=== PATIENT | male | born 1945 | race Caucasian/White ===

== ENCOUNTER 2019-10-06 10:26 | Outpatient (CLI) | payer MEDICARE, SELFPAY ==
[2019-10-06 11:00] LABS: Blood Urea Nitrogen 13 mg/dL (9-20); Calcium 9.4 mg/dL (8.4-10.2); Carbon Dioxide 34 mmol/L (22-30); Chloride 98 mmol/L (98-107); Estimated Glomerular Filt Rate > 60; Glucose 91 mg/dL (75-110); Potassium 3.9 mmol/L (3.4-5.0); Sodium 141 mmol/L (137-145)
== END 2019-10-06 10:27 | disposition home or self-care (01) ==
LOC: ANHSURGERY 10:30
PROVIDERS: Anesthesiology; PCP Family Medicine; Visit Provider Orthopaedic Surgery
DX: E11.9 Type 2 diabetes mellitus without complications (principal)
CPT/HCPCS: 36415; 80048

== ENCOUNTER 2019-10-13 02:40 | Day surgery (SDC) | payer MEDICARE, SELFPAY ==
[2019-10-04 13:43] VITALS: BMI 29.9
[2019-10-13] VITALS (7 sets, daily range): BP systolic 116–152; BP diastolic 73–91; PULSE 70–85; RESP 12–20; TEMP 36.7–36.9; O2SAT 18–98; BMI 31.0
[2019-10-13] MEDS: LACTATED RINGERS 1,000 ML 30 ML IV CONT ×2 (08:15→09:35)
--- NOTE | 2019-10-13 08:16 | WPDHPUPDATE1 ---
History and Physical Update Update Date/Time: 10/13/19 08:16 History and Physical has been reviewed, including an updated exam of the patient. There are NO changes in the patient's condition. Risks, benefits, and alternatives have been discussed and questions answered. Patient agrees to proceed with procedure.
[2019-10-13 08:23] LABS: Glucose Point of Care 102 (65-105)
--- NOTE | 2019-10-13 08:35 | WPDANESEPPF ---
Anes - Initial Pre Proc Eval Procedure: Operation Date: 10/13/19 09:00 Proposed Procedures p Right Arthroscopic Partial Medial and Lateral Meniscectomy - Rolf Alfonso MD Date/Time: 10/13/19 08:35 Surgeon: Rolf Alfonso MD Pre Op Diagnosis: Right Medial and Lateral Meniscus Tear Patient Data Age: 74 Gender: M Height: 5 ft 8.5 in Weight: 93.9 kg Last Vital Signs Temp 36.9 C 10/13/19 07:30 Pulse 85 10/13/19 07:30 Resp 18 10/13/19 07:30 BP 152/91 H 10/13/19 07:30 Pulse Ox 97 10/13/19 07:30 Allergies Allergy/AdvReac Type Severity Reaction Status Date / Time Shrimp Allergy Mild Hives / Uncoded 10/04/19 13:40 Red Face Home Medications Medication Instructions Recorded Confirmed Type amlodipine 5 mg tablet 5 mg PO DAILY #90 tablet 07/07/19 10/04/19 Rx hydrochlorothiazide 25 mg tablet 25 mg PO DAILY #90 tablet 07/07/19 10/04/19 Rx lisinopril 40 mg tablet 40 mg PO DAILY #90 tablet 07/07/19 10/04/19 Rx metformin 500 mg tablet,extended 500 mg PO DAILY #90 tablet 07/07/19 10/04/19 Rx release 24hr potassium chloride 20 mEq 20 meq PO BID #180 tablet 07/07/19 10/04/19 Rx tablet,extended release rivaroxaban 20 mg tablet 20 mg PO DAILY #90 tablet 07/07/19 10/04/19 Rx metoprolol tartrate 50 mg tablet 50 mg PO BID #180 tablet 08/30/19 10/04/19 Rx aspirin 81 mg PO DAILY 10/04/19 10/04/19 History pazjaihaslag-wotf-qlmdq acid 1 tablet PO DAILY 10/04/19 10/04/19 History [Centrum Complete] Laboratory Tests 10/13/19 08:19 POC Capillary Glucose 102 mg/dl mg/dl (65-105) Patient hx anesthesia problems: none Family hx anesthesia problems: none PMFSH Past Medical History Medical History Bilateral primary osteoarthritis of knee Essential (primary) hypertension Family history of unspecified malignant neoplasm Hypokalemia Male erectile disorder Osteoarthritis of right knee Prediabetes Tear of medial meniscus of right knee Unspecified atrial fibrillation Surgical History Surgical History History of laparoscopic appendectomy Family History Family History Mother Family history of cardiovascular disease Father Family history of lung cancer Other Family history of elevated blood lipids Family history of pancreatic cancer Social History Social History Smoking status: Never smoker Alcohol intake: current Gender identity (if verbalized by the patient): Male Anes - Eval Final PreProcedure Day of Procedure 10/13/19 08:35 Patient weight: overweight Heart: irregular rhythm Lungs: clear to auscultation Airway: Mallampati scale class II Neurological: alert and oriented Last oral intake: >/= 8 hours ASA classification: III Emergent: no Anesthetic plan: proceed Anesthesia type and monitoring: general LMA and standard monitoring Informed Consent: The patient's anesthetic plan and its attendant risks and benefits were discussed with the patient/family/POA. Questions were solicited and answers provided to the satisfaction of the patient/family/POA.
[2019-10-13] MEDS: ceFAZolin 2 GM/D5W 50 ML 2 GM/50 ML BAG IVPB (08:37)
[2019-10-13] MEDS: BUPIVACAINE/EPINEPHRINE 0.5% 30 ML VIAL INFILTRATE (08:54)
--- NOTE | 2019-10-13 09:32 | PM.PROC ---
Procedure Note - Detailed Date of procedure: 10/13/19 Pre-op diagnosis: Right Medial and Lateral Meniscus Tear Medial and lateral meniscus tear, left knee Post-op diagnosis: same Procedure performed: Arthroscopic partial medial and lateral meniscectomy, right knee. Description of procedure: Complex degenerative medial tear. Moderate synovitis. Chondromalacia: patella grade I, trochlea grade 3 central, medial femur grade 3 with chondroplasty performed, lateral femur grade I and grade 2/3 softening and deep fibrillation lateral central tibia, medial tibia normal. Anesthesia: GETA Surgeon: Rolf Alfonso MD Estimated blood loss (mL): 5 Tourniquet time (min): 30 Complications: None Condition: stable Disposition: PACU Findings: Brief History: The patient complained of knee pain, swelling and mechanical symptoms despite conservative treatment. MRI confirmed the presence of a meniscus tear. Procedure Details: The patient was identified and the surgical site confirmed and signed in the preoperative holding area. Antibiotics were started per protocol. He was brought to the operative room and transferred to the OR table. A general anesthetic was administered. Supine position with the operative lower extremity position in the leg lu after placement of a well padded tourniquet. The leg support was lowered and the contralateral limb was supported with a soft bolster. The knee was prepped and draped in the usual sterile fashion. A time-out was performed. The portal sites were marked and infiltrated with 0.5% Marcaine 20 mL. The limb was exsanguinated and the tourniquet inflated to 300 mL Hg. Standard inferolateral and inferomedial portals were established. Inflow was obtained with the saline pump. The camera was introduced. Diagnostic inspection of the joint was accomplished. The medial and lateral menisci were debrided with the arthroscopic shaver, RF probe, and punches until stable. The arthroscopic instruments were removed. The tourniquet released and wounds closed with subcutaneous 3-0 Monocryl absorbable suture. Steri strips and a sterile dressing were applied. A light elastic wrap was placed. The patient was extubated and brought to the recovery room in stable condition.
[2019-10-13 13:15] LABS: Glucose Point of Care 97 (65-105)
== END 2019-10-13 11:25 | disposition home or self-care (01) ==
PROVIDERS: PCP Family Medicine; Visit Provider Orthopaedic Surgery
PROC: (CPT 29870; principal; 2019-10-13 09:00)
DX: M23.331 Other meniscus derangements, other medial meniscus, right knee (principal); M23.361 Other meniscus derangements, other lateral meniscus, right knee; M94.261 Chondromalacia, right knee; M65.861 Other synovitis and tenosynovitis, right lower leg; I10 Essential (primary) hypertension; I48.91 Unspecified atrial fibrillation; R73.03 Prediabetes; Z79.01 Long term (current) use of anticoagulants; Z79.82 Long term (current) use of aspirin; Z79.84 Long term (current) use of oral hypoglycemic drugs
CPT/HCPCS: 29880; J0131; J0690; J1100; J2370; J2405; J2704; J3010; J7120

== ENCOUNTER 2021-07-02 01:14 | Day surgery (SDC) | payer MEDICARE, SELFPAY ==
[2021-06-19 14:48] VITALS: BMI 31.1
--- NOTE | 2021-07-01 13:20 | PM.HPGS ---
History of Present Illness History of Present Illness Consent: Risks, benefits, and alternatives have been discussed and questions answered. Patient agrees to proceed with procedure. Chief complaint: hx of colon polyps Narrative: Reggie Angeles is a 75 year old male here for colon cancer screening. He has a history of having had polyps sometime in the past Review of Systems Review of Systems: All systems reviewed & are unremarkable except as noted in HPI and below PMFSH Past Medical History Medical History Bilateral primary osteoarthritis of knee Essential (primary) hypertension Family history of unspecified malignant neoplasm Hypokalemia Male erectile disorder MCL sprain of right knee Obesity (BMI 30.0-34.9) Osteoarthritis of right knee Prediabetes Sjogrens syndrome Tear of medial meniscus of right knee Unspecified atrial fibrillation Surgical History Surgical History History of laparoscopic appendectomy History of meniscectomy of right knee (~10/13/19) Partial Lateral & Medial Status post medial meniscectomy of knee Family History Family History Mother Family history of cardiovascular disease Father Family history of lung cancer Other Family history of elevated blood lipids Family history of pancreatic cancer Social History Social History Smoking status: Never smoker Alcohol intake: current Drinks per week: 12 Alcohol use details: WEEK Substance use: never Substance use type: does not use Living arrangements: with family Gender identity (if verbalized by the patient): Male Spiritual care concerns: No Meds Home Medications and Allergies Home Medications Medication Instructions Recorded Confirmed Type Centrum Complete 1 tablet PO DAILY 10/04/19 07/02/21 History aspirin 81 mg PO DAILY 10/04/19 07/02/21 History amlodipine 10 mg tablet 10 mg PO DAILY #90 tablet 10/24/20 07/02/21 Rx Xarelto 20 mg PO DAILY 06/19/21 07/02/21 History hydrochlorothiazide 25 mg PO DAILY 06/19/21 07/02/21 History lisinopril 40 mg PO DAILY 06/19/21 07/02/21 History metformin 500 mg PO DAILY 06/19/21 07/02/21 History metoprolol tartrate 50 mg PO BID 06/19/21 07/02/21 History omega 6-fsw-qcp-fish oil [Fish Oil] 1 cap PO BID 06/19/21 07/02/21 History potassium chloride 20 meq PO BID 06/19/21 07/02/21 History Allergies Allergy/AdvReac Type Severity Reaction Status Date / Time No Known Allergies Allergy Verified 07/02/21 08:14 Exam Resp: Auscultation: clear to auscultation bilaterally Cardio: Rate: regular rate Rhythm: regular rhythm GI: GI Palp: Yes Soft to palpation and No Tenderness to palpation present (GI) Assessment and Plan Assessment and plan (1) Colon cancer screening: Code(s): Z12.11 - Encounter for screening for malignant neoplasm of colon Status: Acute Assessment and Plan: Colonoscopy with possible biopsy or polypectomy or cautery or injection of substances.
[2021-07-02 08:16] VITALS: BP 142/83; PULSE 63; RESP 17; TEMP 36.9; O2SAT 97; BMI 31.5
[2021-07-02] MEDS: LACTATED RINGERS 1,000 ML 150 ML IV CONT (08:19)
[2021-07-02 08:32] LABS: Glucose Point of Care 118 mg/dl (65-105)
--- NOTE | 2021-07-02 08:40 | WPDANESEPPF ---
Anes - Initial Pre Proc Eval Procedure: Operation Date: 07/02/21 09:30 Proposed Procedures p Screening Colonoscopy - Faustino Russell MD Date/Time: 07/02/21 08:40 Surgeon: Faustino Russell MD Pre Op Diagnosis: hx of colon polyps Patient Data Age: 75 Gender: M Height: 1.73 m Weight: 94 kg Last Vital Signs Temp 36.9 C 07/02/21 08:16 Pulse 63 07/02/21 08:16 Resp 17 07/02/21 08:16 BP 142/83 H 07/02/21 08:16 Pulse Ox 97 07/02/21 08:16 Allergies Allergy/AdvReac Type Severity Reaction Status Date / Time No Known Allergies Allergy Verified 07/02/21 08:14 Home Medications Medication Instructions Recorded Confirmed Type Centrum Complete 1 tablet PO DAILY 10/04/19 07/02/21 History aspirin 81 mg PO DAILY 10/04/19 07/02/21 History amlodipine 10 mg tablet 10 mg PO DAILY #90 tablet 10/24/20 07/02/21 Rx Xarelto 20 mg PO DAILY 06/19/21 07/02/21 History hydrochlorothiazide 25 mg PO DAILY 06/19/21 07/02/21 History lisinopril 40 mg PO DAILY 06/19/21 07/02/21 History metformin 500 mg PO DAILY 06/19/21 07/02/21 History metoprolol tartrate 50 mg PO BID 06/19/21 07/02/21 History omega 5-mly-ykd-fish oil [Fish Oil] 1 cap PO BID 06/19/21 07/02/21 History potassium chloride 20 meq PO BID 06/19/21 07/02/21 History Laboratory Tests 07/02/21 08:29 POC Capillary Glucose 118 mg/dl H mg/dl (65-105) Patient hx anesthesia problems: none Family hx anesthesia problems: none Results Review: All pre-operative results and documents have been reviewed as part of the pre-operative evaluation. [facility] Past Medical History Medical History (Updated 07/01/21 @ 13:21 by Faustino Russell MD) Bilateral primary osteoarthritis of knee Essential (primary) hypertension Family history of unspecified malignant neoplasm Hypokalemia Male erectile disorder MCL sprain of right knee Obesity (BMI 30.0-34.9) Osteoarthritis of right knee Prediabetes Sjogrens syndrome Tear of medial meniscus of right knee Unspecified atrial fibrillation Surgical History Surgical History (Updated 10/24/20 @ 09:40 by Asim Beltran MD) History of laparoscopic appendectomy History of meniscectomy of right knee (~10/13/19) Partial Lateral & Medial Status post medial meniscectomy of knee Family History Family History Mother Family history of cardiovascular disease Father Family history of lung cancer Other Family history of elevated blood lipids Family history of pancreatic cancer Social History Social History Smoking status: Never smoker Alcohol intake: current Drinks per week: 12 Alcohol use details: WEEK Substance use: never Substance use type: does not use Living arrangements: with family Gender identity (if verbalized by the patient): Male Spiritual care concerns: No Anes - Eval Final PreProcedure Day of Procedure 07/02/21 08:40 Patient weight: obese Heart: regular rate and rhythm Lungs: clear to auscultation and normal air movement Airway: Mallampati scale class II Neurological: alert and oriented Last oral intake: >/= 8 hours ASA classification: III Emergent: no Anesthetic plan: proceed Anesthesia type and monitoring: general GIVS Results Review: All pre-operative results and documents have been reviewed as part of the pre-operative evaluation. Informed Consent: The patient's anesthetic plan and its attendant risks and benefits were discussed with the patient/family/POA. Questions were solicited and answers provided to the satisfaction of the patient/family/POA.
[2021-07-02 09:42] VITALS: BP 83/44; PULSE 66; RESP 26; O2SAT 99
[2021-07-02 09:52] VITALS: BP 96/52; PULSE 73; RESP 23; O2SAT 100
== END 2021-07-02 10:11 | disposition home or self-care (01) ==
PROVIDERS: PCP Family Medicine; Visit Provider Internal Medicine Gastroenterology
PROC: 0DJD8ZZ Inspection of Lower Intestinal Tract, Via Natural or Artificial Opening Endoscopic (ICD-10-PCS; CPT 45378; principal; 2021-07-02 09:30)
DX: Z12.11 Encounter for screening for malignant neoplasm of colon (principal); K57.30 Diverticulosis of large intestine without perforation or abscess without bleeding; Z86.010 Personal history of colon polyps; I10 Essential (primary) hypertension; M35.00 Sjogren syndrome, unspecified; R73.03 Prediabetes; I48.91 Unspecified atrial fibrillation; Z79.01 Long term (current) use of anticoagulants; Z79.84 Long term (current) use of oral hypoglycemic drugs; Z79.82 Long term (current) use of aspirin; E66.9 Obesity, unspecified; Z68.31 Body mass index [BMI] 31.0-31.9, adult
CPT/HCPCS: G0105; 82948; J2704; J7120

== ENCOUNTER 2021-10-21 09:53 | Outpatient (RCR) | payer MEDICARE, SELFPAY ==
--- NOTE | 2021-10-21 11:36 | PTOPEVAL ---
Thank you for referring Reggie Angeles to [facility].? The patient is scheduled to be seen for therapy? ____x/week for ___ weeks. Please review, sign, date and return this plan of care DYLON. I agree with and certify that the following plan of care is medically necessary. Referring Physician Date Admitting Provider: Attending Provider: Rolf Alfonso MD Referring Provider: *PT Outpatient Evaluation Start: 10/21/21 10:09 Freq: Status: Active Protocol: Document 10/21/21 10:10 [facility] (Rec: 10/21/21 11:01 [facility] [id number]) Therapy Assessment Status Assessment Status Assessment Status Evaluation Outpatient Past Medical History Neurological History Hx Neurological Disorders No Significant History Cardiovascular History Hx Atrial Fibrillation Yes Hx Cardiac Surgery Yes: ABLATION AND CARDIOVERSIONS Hx Hypertension Yes: TAKES MEDS Hx Other Cardiac Disorders Yes: SEES DR. JOHNSON AT [facility]- Respiratory History Hx Bronchitis Yes: 2018 Gastrointestinal History Hx Appendectomy Yes Hx Polyps Yes Hx Ulcer Yes: PERFORATED GASTRIC ULCER Genitourinary History Hx Other Genitourinary Disorders Yes: NOCTURIA Musculoskeletal History Hx Arthritis Yes Hx Orthopedic Surgery Yes: RT KNEE MEDIAL AND LAT. 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 Reproductive History Hx Reproductive Disorders No Significant History Psychosocial History Hx Psychiatric Disorders No Significant History Pain History History of Any Previous or Ongoing No Significant History Instance of Pain Anesthesia History Hx Anesthesia Reactions No Significant History Other History Hx Cancer Yes: SKIN ONLY Evaluation Information Problem Diagnosis bilateral knee oa Onset 10/20/21 Additional Evaluation Detail LEFS = 43% functionally declined Subjective Information patient reports he has been Query Text:As Reported By Patient/ having pain in the bilateral Family knees for years. he reports he is very active individual. he reports he had an injection
--- NOTE | 2021-11-27 10:49 | PTOPEVAL ---
Thank you for referring Reggie Angeles to [facility].? The patient is scheduled to be seen for therapy? ____x/week for ___ weeks. Please review, sign, date and return this plan of care DYLON. I agree with and certify that the following plan of care is medically necessary. Referring Physician Date Admitting Provider: Attending Provider: Rolf Alfonso MD Referring Provider: *PT Outpatient Evaluation Start: 10/21/21 10:09 Freq: Status: Active Protocol: Document 11/27/21 09:23 [facility] (Rec: 11/27/21 10:48 [facility] [id number]) Outpatient Past Medical History Neurological History Hx Neurological Disorders No Significant History Cardiovascular History Hx Atrial Fibrillation Yes Hx Cardiac Surgery Yes: ABLATION AND CARDIOVERSIONS Hx Hypertension Yes: TAKES MEDS Hx Other Cardiac Disorders Yes: SEES DR. JOHNSON AT [facility]- Respiratory History Hx Bronchitis Yes: 2018 Gastrointestinal History Hx Appendectomy Yes Hx Polyps Yes Hx Ulcer Yes: PERFORATED GASTRIC ULCER Genitourinary History Hx Other Genitourinary Disorders Yes: NOCTURIA Musculoskeletal History Hx Arthritis Yes Hx Orthopedic Surgery Yes: RT KNEE MEDIAL AND LAT. 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 he reports Family he continues to have increased pain with increased time spent doing activities. he reports staris and getting up and down fr
== END 2021-11-27 17:00 | disposition home or self-care (01) ==
LOC: CHSPT 09:53
PROVIDERS: Visit Provider Orthopaedic Surgery
DX: M17.0 Bilateral primary osteoarthritis of knee (principal)
CPT/HCPCS: 97110; 97161; 97530

== ENCOUNTER 2022-01-20 11:55 | Outpatient (RCR) | payer MEDICARE, SELFPAY ==
--- NOTE | 2022-01-20 12:50 | PTOPEVAL ---
Thank you for referring Reggie Angeles to [facility].? The patient is scheduled to be seen for therapy? ____x/week for ___ weeks. Please review, sign, date and return this plan of care DYLON. I agree with and certify that the following plan of care is medically necessary. Referring Physician Date Admitting Provider: Attending Provider: Rolf Alfonso MD Referring Provider: *PT Outpatient Evaluation Start: 01/20/22 11:42 Freq: Status: Active Protocol: Document 01/20/22 12:05 [facility] (Rec: 01/20/22 12:50 [facility] [id number]) Therapy Assessment Status Assessment Status Assessment Status Evaluation Outpatient Past Medical History Neurological History Hx Neurological Disorders No Significant History Cardiovascular History Hx Atrial Fibrillation Yes Hx Cardiac Surgery Yes: ABLATION AND CARDIOVERSIONS Hx Hypertension Yes: TAKES MEDS Hx Other Cardiac Disorders Yes: SEES DR. JOHNSON AT [facility]- Respiratory History Hx Bronchitis Yes: 2018 Gastrointestinal History Hx Appendectomy Yes Hx Polyps Yes Hx Ulcer Yes: PERFORATED GASTRIC ULCER Genitourinary History Hx Other Genitourinary Disorders Yes: NOCTURIA Musculoskeletal History Hx Arthritis Yes Hx Orthopedic Surgery Yes: RT KNEE MEDIAL AND LAT. 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 he reports he was able to mow grass this morning, but fluctuates
--- NOTE | 2022-02-03 15:07 | PTOPEVAL ---
Thank you for referring Reggie Angeles to [facility].? The patient is scheduled to be seen for therapy? ____x/week for ___ weeks. Please review, sign, date and return this plan of care DYLON. I agree with and certify that the following plan of care is medically necessary. Referring Physician Date Admitting Provider: Attending Provider: Rolf Alfonso MD Referring Provider: *PT Outpatient Evaluation Start: 01/20/22 11:42 Freq: Status: Active Protocol: Document 02/03/22 14:00 [facility] (Rec: 02/03/22 15:06 [facility] [id number]) Therapy Assessment Status Assessment Status Assessment Status Re-evaluation Outpatient Past Medical History Neurological History Hx Neurological Disorders No Significant History Cardiovascular History Hx Atrial Fibrillation Yes Hx Cardiac Surgery Yes: ABLATION AND CARDIOVERSIONS Hx Hypertension Yes: TAKES MEDS Hx Other Cardiac Disorders Yes: SEES DR. JOHNSON AT [facility]- Respiratory History Hx Bronchitis Yes: 2018 Gastrointestinal History Hx Appendectomy Yes Hx Polyps Yes Hx Ulcer Yes: PERFORATED GASTRIC ULCER Genitourinary History Hx Other Genitourinary Disorders Yes: NOCTURIA Musculoskeletal History Hx Arthritis Yes Hx Orthopedic Surgery Yes: RT KNEE MEDIAL AND LAT. 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 Reproductive History Hx Reproductive Disorders No Significant History Psychosocial History Hx Psychiatric Disorders No Significant History Pain History History of Any Previous or Ongoing No Significant History Instance of Pain Anesthesia History Hx Anesthesia Reactions No Significant History Other History Hx Cancer Yes: SKIN ONLY Evaluation Information Problem Diagnosis B/l Knee OA, lumbar spondylosis Onset 01/14/22 Subjective Information patient rpeorts he is feeling Query Text:As Reported By Patient/ better as of late, but a week Family or 2 ago he was unable to walk due to his lower back pain. he reports the pain was in the far lower back on the R side
--- NOTE | 2022-02-26 13:52 | PTOPEVAL ---
Thank you for referring Reggie Angeles to [facility].? The patient is scheduled to be seen for therapy? ____x/week for ___ weeks. Please review, sign, date and return this plan of care DYLON. I agree with and certify that the following plan of care is medically necessary. Referring Physician Date Admitting Provider: Attending Provider: Rolf Alfonso MD Referring Provider: *PT Outpatient Evaluation Start: 01/20/22 11:42 Freq: Status: Active Protocol: Document 02/26/22 13:41 Jennifer (Rec: 02/26/22 13:51 TRI [email or web address]) Therapy Assessment Status Assessment Status Assessment Status Discharge Outpatient Past Medical History Neurological History Hx Neurological Disorders No Significant History Cardiovascular History Hx Atrial Fibrillation Yes Hx Cardiac Surgery Yes: ABLATION AND CARDIOVERSIONS Hx Hypertension Yes: TAKES MEDS Hx Other Cardiac Disorders Yes: SEES DR. JOHNSON AT [facility]- Respiratory History Hx Bronchitis Yes: 2018 Gastrointestinal History Hx Appendectomy Yes Hx Polyps Yes Hx Ulcer Yes: PERFORATED GASTRIC ULCER Genitourinary History Hx Other Genitourinary Disorders Yes: NOCTURIA Musculoskeletal History Hx Arthritis Yes Hx Orthopedic Surgery Yes: RT KNEE MEDIAL AND LAT. 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 he reports his back and Family knees both are back to feeling and working well. he reports he is able to work in his yard and garden without hesitation
== END 2022-02-26 15:06 | disposition home or self-care (01) ==
LOC: CHSPT 11:55
PROVIDERS: Visit Provider Orthopaedic Surgery
DX: M17.0 Bilateral primary osteoarthritis of knee (principal); M47.816 Spondylosis without myelopathy or radiculopathy, lumbar region
CPT/HCPCS: 97014; 97110; 97161; 97164; 97530; G0283

== ENCOUNTER 2022-01-27 09:55 | Outpatient (CLI) | payer MEDICARE, SELFPAY ==
--- NOTE | ~2022-01-27 | MR_ITS ---
EXAMINATION: MR lumbar spine wo con DATE: 01/27/2022 10:35 INDICATION: Radiculopathy, lumbosacral region. Low back pain. Right hip and groin pain. TECHNIQUE: Magnetic resonance imaging (MRI) of the lumbar spine was performed without intravenous con trast. Sequences included sagittal T2-weighted FSE, sagittal T2-weighted FS FSE, sagittal T1-weighted FSE, and axial T2-weighted FSE. COMPARISON: CT abdomen and pelvis 04/18/2014 FINDINGS: Bone alignment is normal. Vertebral body heights and intervertebral disc heights are normal . There is a chronic left L5 pars defect. The distal spinal cord signal intensity is normal. The conu s medullaris is at T12-L1. The following disc levels are specifically discussed: L1-L2: The disc does not extend beyond the endplate margin. There is mild bilateral facet joint osteo arthritis. There is no neural foraminal stenosis. There is no central canal stenosis. L2-L3: The disc is bulging and has an annular fissure. There is mild bilateral facet joint osteoarthr itis. There is moderate right and mild left neural foraminal stenosis. There is no central canal sten osis. L3-L4: The disc is bulging. There is mild bilateral facet joint osteoarthritis. There is moderate doa ateral neural foraminal stenosis. There is no central canal stenosis. L4-L5: The disc is bulging. There is severe bilateral facet joint osteoarthritis. There is moderate r ight and mild left neural foraminal stenosis. There is mild central canal stenosis. L5-S1: The disc is bulging and has an annular fissure. There is severe bilateral facet joint osteoart hritis. There is mild bilateral neural foraminal stenosis. There is mild central canal stenosis. IMPRESSION: 1. Moderate lumbar spondylosis. 2. Chronic left L5 pars defect. Reviewed, dictated and finalized at location A.
== END 2022-01-27 09:56 | disposition home or self-care (01) ==
LOC: ANHIMG 10:02
PROVIDERS: PCP Family Medicine; Visit Provider Family Medicine
DX: M47.27 Other spondylosis with radiculopathy, lumbosacral region (principal)
CPT/HCPCS: 72148

== ENCOUNTER 2022-11-15 14:02 | Emergency (ER) | payer MEDICARE, SELFPAY ==
--- NOTE | ~2022-11-15 | XR_ITS ---
XR chest 2V DATE: 11/15/2022 15:01 INDICATION: Shortness of breath when lying down TECHNIQUE: 2 views COMPARISON: None FINDINGS: Cardiomegaly. Thoracic and abdominal aortic calcification. No pulmonary infiltrate or consolidation, pleural effusion or pulmonary vascular congestion or pneumo thorax is detected. IMPRESSION: Cardiomegaly Reviewed, dictated and finalized at location A. IMPRESSION: Cardiomegaly
[2022-11-15 14:17] VITALS: BP 139/87; PULSE 77; RESP 20; TEMP 37.2; O2SAT 98
--- NOTE | 2022-11-15 14:22 | ECG_ITS ---
Measurements Intervals [place] Rate: 84 P: MD: 0 QRS: -29 QRSD: 103 T: 84 QT: 398 QTc: 471 Interpretive Statements ATRIAL FIBRILLATION VENTRICULAR PREMATURE COMPLEX CANNOT RULE OUT SEPTAL INFARCT, AGE INDETERMINATE INFERIOR INFARCT, AGE INDETERMINATE BORDERLINE ST-T WAVE ABNORMALITY- LAT/HIGH LAT LEADS ABNORMAL ECG NO PREVIOUS ECG AVAILABLE FOR COMPARISON Electronically Signed On 11-16-2022 8:09:20 CDT by Harry Fay D.O.
--- NOTE | 2022-11-15 16:06 | ED.GENADULT ---
HPI - General Adult General Chief complaint: Shortness of Breath/Dyspnea Stated complaint: Can't breathe/sleep when lays down Source: patient and family Mode of arrival: ambulatory Limitations: no limitations History of Present Illness HPI narrative: Patient presents for evaluation of shortness of breath when lying flat with last 4-5 days. He denies any shortness of breath when seated or standing. Denies any cough, chest pain, palpitations, lower extremity swelling. He has an underlying history of atrial fibrillation status post cardiac ablation. He is currently anticoagulated with Xarelto. His telephone service adviser is Dr. Valdez. He saw him last in May 2022. Documentation from that visit indicated that patient had an echocardiogram in 2021 that showed left ventricular enlargement with an ejection fraction of 55% and aortic valve stenosis present. Pt states he has been adherent to his medication therapy. No fever, chills, nausea, vomiting or other infectious symptoms. No recent sick contacts to his knowledge. He does not smoke. He denies snoring to suggest underlying hx of ANA. He has experienced some nasal congestion for several years but states that his SOB is likely not related as he primarily breathes through his mouth. Related Data Home Medications Medication Instructions Recorded Confirmed aspirin 81 mg chewable tablet 81 mg PO DAILY 10/04/19 11/05/22 multivitamin-ferrous 1 tablet PO DAILY 10/04/19 11/05/22 fumarate-folic acid 18 mg-400 mcg tablet (Centrum Complete) omega 6-waj-kzw-fish oil 1,200 mg 1 cap PO BID 06/19/21 11/05/22 (144 mg-216 mg) capsule (Fish Oil) Allergies Allergy/AdvReac Type Severity Reaction Status Date / Time No Known Allergies Allergy Verified 11/15/22 14:38 Review of Systems Review of Systems: CONSTITUTIONAL: Denies fever, chills, or sweats. EYES: Denies visual changes, redness, or discharge. ENT: Denies rhinorrhea, congestion, sore throat, or otalgia. CARDIOVASCULAR: Denies chest pain, palpitations, or edema. RESPIRATORY: Reports shortness of breath when lying flat. Denies SOB otherwise. Denies cough GASTROINTESTINAL: Denies abdominal pain, nausea, vomiting, or diarrhea. GENITOURINARY: Denies dysuria or hematuria. SKIN: Denies rash or itching. MUSCULOSKELETAL: Denies back pain, joint pain, or myalgia. NEUROLOGIC: Denies headache, numbness, dizziness, or weakness. PSYCHIATRIC: Denies anxiety or depression. [facility] Past Medical History Medical History Aortic stenosis Bilateral primary osteoarthritis of knee Diverticulosis Essential (primary) hypertension Family history of unspecified malignant neoplasm Hypokalemia Lumbar spondylosis Male erectile disorder MCL sprain of right knee Obesity (BMI 30.0-34.9) Osteoarthritis of right knee Prediabetes Sjogrens syndrome Tear of medial meniscus of right knee Unspecified atrial fibrillation Surgical History Surgical History History of laparoscopic appendectomy History of meniscectomy of right knee (~10/13/19) Partial Lateral & Medial Status post medial meniscectomy of knee Family History Family History Mother Family history of cardiovascular disease Father Family history of lung cancer Other Family history of elevated blood lipids Family history of pancreatic cancer Social History Social History Smoking status: Never smoker Alcohol intake: current Drinks per week: 12 Alcohol use details: WEEK Substance use: never Substance use type: does not use Lack of Transportation: No Lack of Food: Never True Current Housing: I Have Housing Concerned About Future Housing: No Difficulty Paying Gas/Electric Bills: No Difficulty Paying for Meds: No
== END 2022-11-15 16:33 | disposition home or self-care (01) ==
PROVIDERS: Emergency Provider Nurse Practitioner; PCP Family Medicine
DX: R06.02 Shortness of breath (principal); I48.91 Unspecified atrial fibrillation; I10 Essential (primary) hypertension; Z79.01 Long term (current) use of anticoagulants; Z20.822 Contact with and (suspected) exposure to COVID-19
CPT/HCPCS: 71046; 87081; 87426; 87804; 87880; 93005; 99213; C9803; G0463

== ENCOUNTER 2022-11-30 00:33 | Day surgery (SDC) | payer MEDICARE, SELFPAY ==
[2022-11-27 12:42] VITALS: BMI 32.0
[2022-11-30] VITALS (8 sets, daily range): BP systolic 129–147; BP diastolic 75–94; PULSE 67–82; RESP 16–20; TEMP 36.6; O2SAT 94–98; BMI 31.5
[2022-11-30 09:01] LABS: Basophils Absolute Auto 0.1 K/mm3 (0.0-0.1); Basophils Percent Auto 1.5 % (0.2-1.2); Eosinophils Absolute Auto 0.2 K/mm3 (0-0.3); Eosinophils Percent Auto 3.6 % (0-4.4); Hematocrit 41.9 % (42.0-52.0); Hemoglobin 13.5 g/dL (14.0-18.0); Immature Granulocyte Absolute 0.01 K/mm3 (0.00-0.031); Immature Granulocyte Percent A 0.2 % (0-0.5); Lymphocytes Percent Auto 24.7 % (18.3-44.2); Mean Corpuscular HGB Conc 32.2 g/dl (32-36); Mean Corpuscular Volume 96.3 fl (80-100); Mean Platelet Volume 10.7 fl (7.4-10.4); Monocytes Absolute Auto 0.5 K/mm3 (0.1-0.6); Monocytes Percent Auto 9.3 % (2.6-8.5); Neutrophils Absolute Auto 3.2 K/mm3 (1.3-6.7); Neutrophils Percent Auto 60.7 % (45.5-73.1); Platelet Count Result 169 k/mm3 (150-375); Red Blood Count 4.35 M/mm3 (4.6-6.20); Red Cell Distribution Width 13.8 % (11.5-14.5); White Blood Count 5.3 K/mm3 (4.5-10.0)
[2022-11-30 09:10] LABS: Anion Gap 1 mmol/L (8-16); Blood Urea Nitrogen 17 mg/dL (9-20); Calcium 9.1 mg/dL (8.4-10.2); Carbon Dioxide 38 mmol/L (22-30); Chloride 102 mmol/L (98-107); Estimated CRCL calculation 67 ml/min; Estimated Glomerular Filt Rate > 60; Glucose 112 mg/dL (65-110); Potassium 3.5 mmol/L (3.4-5.0); Sodium 141 mmol/L (137-145)
[2022-11-30 09:14] LABS: INR 1.2; Prothrombin Time 14.2 Seconds (11.1-14.7)
--- NOTE | 2022-11-30 10:09 | WPDMODSED ---
Moderate Sedation Note-Pt Data Patient Data Diagnosis: Aortic stenosis chronic atrial fibrillation Present Complaint: exertional/positional dyspnea Procedure to be performed/Plan: right and left heart catheterization Allergies Allergy/AdvReac Type Severity Reaction Status Date / Time No Known Allergies Allergy Verified 11/27/22 13:06 Home Medications Medication Instructions Recorded Confirmed Type aspirin 81 mg chewable tablet 81 mg PO DAILY 10/04/19 11/30/22 History multivitamin-ferrous 1 tablet PO DAILY 10/04/19 11/30/22 History fumarate-folic acid 18 mg-400 mcg tablet (Centrum Complete) omega 2-cbl-ada-fish oil 1,200 mg 1 cap PO BID 06/19/21 11/30/22 History (144 mg-216 mg) capsule (Fish Oil) amlodipine 10 mg tablet 10 mg PO DAILY #90 tabs 11/05/22 11/30/22 Rx hydrochlorothiazide 25 mg tablet 25 mg PO DAILY 11/27/22 11/30/22 History lisinopril 40 mg tablet 40 mg PO DAILY 11/27/22 11/30/22 History metformin 500 mg tablet,extended 500 mg PO DAILY 11/27/22 11/30/22 History release 24 hr metoprolol tartrate 50 mg tablet 50 mg PO BID 11/27/22 11/30/22 History potassium chloride 20 mEq 20 meq PO BID 11/27/22 11/30/22 History tablet,extended release(part/cryst) rivaroxaban 20 mg tablet (Xarelto) 20 mg PO HS 11/27/22 11/27/22 History Current Medications: Active Medications Sodium Chloride (Normal Saline Iv) 500 mls @ 100 mls/hr IV CONT .Q5H EMILY Sedation/Anesthesia: No previous sedation/anesthesia problems (including family history). [facility] Past Medical History Medical History Aortic stenosis Bilateral primary osteoarthritis of knee Diverticulosis Essential (primary) hypertension Family history of unspecified malignant neoplasm Hypokalemia Lumbar spondylosis Male erectile disorder MCL sprain of right knee Obesity (BMI 30.0-34.9) Osteoarthritis of right knee Prediabetes Sjogrens syndrome Tear of medial meniscus of right knee Unspecified atrial fibrillation Surgical History Surgical History History of laparoscopic appendectomy History of meniscectomy of right knee (~10/13/19) Partial Lateral & Medial Status post medial meniscectomy of knee Family History Family History Mother Family history of cardiovascular disease Father Family history of lung cancer Other Family history of elevated blood lipids Family history of pancreatic cancer Social History Social History Smoking status: Never smoker Alcohol intake: current Drinks per week: 12 Alcohol use details: 1-2 per day Substance use: current Substance use type: does not use Lack of Transportation: No Lack of Food: Never True Current Housing: I Have Housing Concerned About Future Housing: No Difficulty Paying Gas/Electric Bills: No Difficulty Paying for Meds: No Currently Unemployed: No Education: Associate Degree Difficulty w/ Childcare or Family Care: No Living arrangements: with family Gender identity (if verbalized by the patient): Male Spiritual care concerns: No Mod Sed Physical Exam Physical Exam Pre Procedural Exam: Normal: Appearance, Neck, Throat, Airway, Lungs, Heart Size, Neuro Exam and Extremities and Variation: Heart Rate and Heart Rhythm ( irregularly irregular) Hours since solid foods: 12 Hours since liquid intake: 12 Mallampati Classification: class II Internal Medicine - PN: Obj Da Vital Signs Vital Signs: Vital Signs - 24 hr 11/30/22 08:59 Temperature 36.6 C Pulse Rate 81 Respiratory Rate 16 Blood Pressure 133/89 Pulse Oximetry 98 Oxygen Delivery Room Air Meds/Results Medications: Active Medications Generic Name Dose Route Start Last Admin Trade Name Freq PRN Reason Stop Dose A
--- NOTE | 2022-11-30 11:13 | WPDCARDPROC ---
Cardiac Cath Procedure Note Date of procedure:: 11/30/22 Performing physician:: Asim Valdez MD Indication:: shortness of breath chronic atrial fibrillation aortic valve stenosis Brief clinical history:: this is a 77-year-old man being followed with chronic atrial fibrillation he has been experiencing worsening shortness of breath. He is known to have aortic valve stenosis as well. For further evaluation of this right and left heart catheterization has been scheduled for today. Procedure Procedure performed:: Right and left heart catheterization with left ventriculography and coronary angiography Sedation/Medication given:: fentanyl 25 mg Versed 2 mg Access site:: right femoral artery right femoral vein Estimated blood loss:: 25 cc Procedure note:: patient was brought to the cardiac catheterization lab in the postabsorptive state the right femoral triangle was prepared and draped in the normal fashion. Anesthesia was provided with 1% lidocaine infiltrated locally. Using the modified Seldinger technique a 6 Samoan sheath was placed into the right common femoral artery and a 7 Samoan sheath into the right femoral vein. Following this I used a balloon tipped Sonoma-Quirino catheter to document right-sided hemodynamics as well as thermodilution cardiac outputs being sampled. We also used this catheter to sample av O2 difference. Following this the Sonoma-Quirino catheter was removed. I then used a 6 Samoan double-lumen pigtail catheter to measure Simultaneous pressures in the aortic root and then advanced the catheter across the aortic valve into the left ventricle measuring simultaneous LV and aortic pressures. I was able to advance this catheter across the aortic valve into the LV with no guidewire assistance of any kind. This indicates the absence of significant aortic stenosis. following this I performed aortic valve area calculation and then used the same catheter to inject the left ventriculogram in the 30 degree ANDERSON projection. Following this pullback was documented across the aortic valve. The double-lumen pigtail catheter was then removed. I then used a 5 Samoan FL4 diagnostic catheter to engage and inject the left coronary artery in multiple projections and then a 5 Samoan JR4 catheter to engage and inject the right coronary artery. The cineangiograms were then reviewed and the case was terminated. An angiogram was done of the femoral artery through the sheath after which a 6 Samoan Angio-Seal device was used to secure hemostasis at the puncture site with good result. 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 Findings:: Hemodynamics: Mean right atrial pressure is 11, right ventricle 50 over 6 end-diastolic 12. Pulmonary artery 48 over 26 mean come pulmonary capillary wedge pressure 27, central aorta 131/73, left ventricle 151 over to end-diastolic pressure 23. Akbar cardiac output is 5.7 giving an index of 2.7 thermodilution cardiac output 5.8 giving an index of 2.8. Aortic valve area calculates to be 1.60 cm2 with a mean gradient of 20.68. Left ventricle: The LV is moderately enlarged there is moderate global systolic dysfunction identified. There were no regional wall motion abnormalities in the ejection fraction appears to be about 35% by visual estimation. No significant MR was seen. The left main coronary artery is nicely patent the LAD is mildly calcified there is mild proximal disease of the LAD representing about 40-50% stenosis in the midportion of the LAD there is similarly 50% stenosis. There is a very small proximal diagonal branch that has a 90% proximal stenosis. The circumflex is a moderate to large caliber vessel giving rise to the marginal branches and a posterior branches as well. The trunk of the circumflex after the 2nd obtuse marginal has a 60-70% stenosis after this there is a distal trifurcate inguinal area
== END 2022-11-30 14:26 | disposition home or self-care (01) ==
PROVIDERS: PCP Family Medicine; Visit Provider Specialist
PROC: 4A023N8 Measurement of Cardiac Sampling and Pressure, Bilateral, Percutaneous Approach (ICD-10-PCS; CPT 93453; principal; 2022-11-30 10:00)
DX: I25.10 Atherosclerotic heart disease of native coronary artery without angina pectoris (principal); I48.20 Chronic atrial fibrillation, unspecified; R06.02 Shortness of breath; I35.0 Nonrheumatic aortic (valve) stenosis; I11.9 Hypertensive heart disease without heart failure; M35.00 Sjogren syndrome, unspecified; Z79.82 Long term (current) use of aspirin; Z79.84 Long term (current) use of oral hypoglycemic drugs; Z79.01 Long term (current) use of anticoagulants
CPT/HCPCS: 36415; 80048; 85025; 85610; 93460; C1760; C1769; C1887; C1894; G0269; J1644; J2250; J3010; J7040

== ENCOUNTER 2023-02-04 04:15 | Emergency (ER) | payer MEDICARE, SELFPAY ==
--- NOTE | 2023-02-04 04:17 | ED.EPISTAXIS ---
HPI - Epistaxis General Chief complaint: Unspecified Stated complaint: Nose Bleed Time Seen by Provider: 02/04/23 04:16 Source: patient Mode of arrival: wheelchair Limitations: no limitations History of Present Illness HPI Narrative: 77-year-old male with a history of arthritis, prediabetes, Sjogren's,hypertension, aortic stenosis, CHF, atrial fibrillation on Xarelto , Cardiac catheterization (3 weeks ago which revealed EF of 35%, pulmonary capillary wedge pressure 27, elevated LVEDP, attic valve measuring 1.6 cm Squire, narrowing of D2 and are RPL branch without any interventions) presents to the ER with -- epistaxis from left nostril. he had epistaxis yesterday morning which resolved spontaneously. Today he has been having epistaxis from left nostril since 2:30 a.m. Large amount of blood loss. Blood is trickling down the back of his throat. denies any chest pain or shortness of breath. MD complaint: epistaxis Location: left nostril Onset (ago): day(s) ( Started yesterday) Duration: intermittent Context: other anticoagulant use Associated symptoms: weakness Treatment prior to arrival: nose pinching Related Data Home Medications Medication Instructions Recorded Confirmed metformin 500 mg tablet,extended 500 mg PO DAILY 11/27/22 11/30/22 release 24 hr rivaroxaban 20 mg tablet (Xarelto) 20 mg PO HS 11/27/22 11/27/22 Allergies Allergy/AdvReac Type Severity Reaction Status Date / Time No Known Allergies Allergy Verified 02/04/23 05:31 Review of Systems Review of Systems: All systems reviewed & are unremarkable except as noted in HPI and below Constitutional: Constitutional: Reports as per HPI and Reports no additional constitutional complaints Eyes: Eyes: Reports as per HPI and Reports no additional eye complaints ENT: Reports system reviewed and no additional complaints, except as documented and Reports epistaxis Cardiovascular: Cardiovascular: Reports as per HPI and Reports no additional cardiovascular complaints Respiratory: Respiratory: Reports as per HPI and Reports no additional respiratory complaints Gastrointestinal: Gastrointestinal: Reports as per HPI and Reports no additional gastrointestinal complaints Genitourinary: Genitourinary: Reports no additional male genitourinary complaints and Reports as per HPI Musculoskeletal: Musculoskeletal: Reports no additional musculoskeletal complaints, Reports as per HPI and Reports arthralgias Integumentary/Breasts: Skin/Breast: Reports system reviewed and no additional complaints, except as docu and Reports as per HPI Comments: chronic venous status changes both lower extremities Neurologic: Reports system reviewed and no additional complaints, except as documented and Reports as per HPI Psychiatric: Psychiatric: Reports no additional psychiatric complaints and Reports as per HPI Endocrine: Endocrine: Reports no additional endocrine complaints and Reports as per HPI Hematologic/Lymphatic: Hematologic/Lymphatic: Reports no additional hematologic/lymphatic complaints and Reports as per HPI Allergic/Immunologic: Allergic/Immunologic: Reports no additional allergic/immunologic complaints and Reports as per HPI [facility] Past Medical History Medical History Aortic stenosis Bilateral primary osteoarthritis of knee Diverticulosis Essential (primary) hypertension Family history of unspecified malignant neoplasm Hypokalemia Lumbar spondylosis Male erectile disorder MCL sprain of right knee Obesity (BMI 30.0-34.9) Osteoarthritis of right knee Prediabetes Sjogrens syndrome Tear of medial meniscus of right knee Unspecified atrial fibrillation Surgical History Surgical History History of laparoscopic appendectomy History of meniscectomy of right knee (~10/13/19) Partial Lateral & Medial Status post medial meniscectomy of knee Famil
[2023-02-04] MEDS: OXYMETAZOLINE HCL 0.05% NAS 15 ML BTL (*BKC) 1 SPRAY NASAL (04:35)
[2023-02-04 04:38] LABS: Basophils Absolute Auto 0.09 K/mm3 (0.00-0.10); Basophils Percent Auto 1.6 % (0.0-1.0); Eosinophils Absolute Auto 0.24 K/mm3 (0.02-0.50); Eosinophils Percent Auto 4.4 % (1.0-6.0); Hematocrit 45.4 % (37.0-46.0); Hemoglobin 14.7 g/dL (12.4-15.3); Immature Granulocyte Absolute 0.02 K/mm3 (0.00-0.00); Immature Granulocyte Percent A 0.4 % (0.0-0.0); Lymphocytes Absolute Auto 1.74 K/mm3 (1.10-4.50); Lymphocytes Percent Auto 31.9 % (18.0-42.0); Mean Corpuscular HGB Conc 32.4 g/dL (32.0-36.0); Mean Corpuscular Hemoglobin 30.4 pg (27.0-31.0); Mean Corpuscular Volume 93.8 fL (78.0-102.0); Monocytes Absolute Auto 0.59 K/mm3 (0.10-0.90); Monocytes Percent Auto 10.8 % (2.0-11.0); Neutrophils Absolute Auto 2.8 K/mm3 (1.7-7.2); Neutrophils Percent Auto 50.9 % (50.0-70.0); Platelet Count Result 158 K/mm3 (150-420); Red Blood Count 4.84 M/mm3 (4.70-6.10); Red Cell Distribution Width 14.1 % (11.6-14.4); White Blood Count 5.5 K/mm3 (4.8-10.8)
[2023-02-04 04:51] LABS: INR 1.2; Prothrombin Time 13.2 Seconds (9.50-12.10)
[2023-02-04 04:54] VITALS: BP 132/83; PULSE 83; RESP 19; TEMP 37.3; O2SAT 97
[2023-02-04 04:54] LABS: Partial Thromboplastin Time 33.3 SEC (23.90-30.70)
[2023-02-04 04:58] LABS: Alanine Aminotransferase 31 U/L (16-63); Albumin Level 3.5 g/dL (3.4-5.0); Alkaline Phosphatase 51 U/L (46-116); Anion Gap 7 mmol/L (8-16); Aspartate Amino Transferase 25 U/L (15-37); Bilirubin,Total 0.4 mg/dL (0.00-1.00); Blood Urea Nitrogen 24 mg/dL (7-18); Calcium 9.1 mg/dL (8.5-10.1); Carbon Dioxide 29 mmol/L (21-32); Chloride 105 mmol/L (98-108); Estimated Glomerular Filt Rate > 60; Glucose 130 mg/dL (70-99); Osmolality Calculated 298 mOsm/kg (285-295); Potassium 4.2 mmol/L (3.5-5.1); Sodium 141 mmol/L (136-145); Total Protein 7.4 g/dL (6.4-8.2)
[2023-02-04 05:02] LABS: Troponin I 18.5 ng/L (0.00-60.4)
--- NOTE | 2023-02-04 05:29 | PC.NURSE ---
pt ambulated to bathroom with a steady gait. pt denied any dizziness. pt nose did not start bleeding while ambulating.
[2023-02-04 05:30] LABS: Appearance Urine Clear (Clear); Bilirubin Urine Negative (Negative); Blood Urine 1+ (Negative); Color Urine Yellow (Yellow); Glucose Urine UA Negative (Negative); Ketones Urine Negative (Negative); Leukocyte Esterase Ur Negative LEU/UL (Negative); Nitrate Urine Negative (Negative); Protein Urine 2+ (Negative); Specific Grav Ur 1.025 (1.010-1.020); Urobilinogen Urine 0.2 mg/dL (0.2-1.0)
[2023-02-04 05:36] LABS: Add Urine Microscopic? YES; Bacteria Urine Trace /hpf; RBC Urine 0-2 /hpf (0-2); WBC Urine 0-3 /hpf (0-3)
--- NOTE | 2023-02-04 05:40 | PC.NURSE ---
pt reporting that his nose is starting to bleed. Md Russo informed.
--- NOTE | 2023-02-04 06:11 | PC.NURSE ---
Small amount of blood draining from left nare that has epistaxis placed. Md Russo informed and in room at this time.
[2023-02-04] MEDS: ACETAMINOPHEN 325 MG TABLET 650 MG PO (06:44)
--- NOTE | 2023-02-04 06:57 | PC.NURSE ---
small amount of blood draining from left nares. Md Russo notified.
[2023-02-04 07:07] VITALS: BP 155/89; PULSE 88; RESP 18; TEMP 36.6; O2SAT 96
== END 2023-02-04 07:11 | disposition home or self-care (01) ==
LOC: CHSED 06:04
PROVIDERS: Emergency Provider Internal Medicine Critical Care Medicine; PCP Family Medicine
DX: R04.0 Epistaxis (principal); I11.0 Hypertensive heart disease with heart failure; I50.9 Heart failure, unspecified; I48.91 Unspecified atrial fibrillation; Z79.01 Long term (current) use of anticoagulants; Z79.84 Long term (current) use of oral hypoglycemic drugs
CPT/HCPCS: 30901; 36415; 80053; 81001; 84484; 85025; 85610; 85730; 99284; A9270

== ENCOUNTER 2023-02-05 09:19 | Emergency (ER) | payer MEDICARE, SELFPAY ==
[2023-02-05 09:19] VITALS: BP 141/88; PULSE 86; RESP 18; TEMP 37.2; O2SAT 97
--- NOTE | 2023-02-05 09:31 | ED.EPISTAXIS ---
HPI - Epistaxis General Chief complaint: Unspecified Stated complaint: nosebleed follow up Time Seen by Provider: 02/05/23 09:30 Source: patient Mode of arrival: ambulatory Limitations: no limitations History of Present Illness HPI Narrative: 77-year-old male with a history of arthritis, prediabetes, Sjogren's, hypertension, aortic stenosis, CHF, EF of 35% and a pulmonary capillary wedge pressure of 27, atrial fibrillation on Xarelto 20 mg daily, and a recent cardiac catheterization which revealed involvement of D2 and RPL branch without any intervention presented to the ER yesterday with a 1 day history of -- left anterior epistaxis. The patient received phenylephrine nasal without any improvement. He went on to have a placement of a 4.5 cm left anterior rhino rocket. After placement of the rocket the patient continued to ooze blood following which the rocket was replaced by another rocket with control of bleeding. The patient was discharged home and advised to return today for removal of the rhino rocket. MD complaint: epistaxis Location: left nostril Onset (ago): day(s) ( Two days ago) Duration: now resolved Context: other anticoagulant use Related Data Home Medications Medication Instructions Recorded Confirmed metformin 500 mg tablet,extended 500 mg PO DAILY 11/27/22 02/05/23 release 24 hr rivaroxaban 20 mg tablet (Xarelto) 20 mg PO HS 11/27/22 02/05/23 furosemide 20 mg tablet 20 mg PO DAILY 02/04/23 02/05/23 sacubitril 24 mg-valsartan 26 mg 1 tablet PO DAILY 02/04/23 02/05/23 tablet (Entresto) Allergies Allergy/AdvReac Type Severity Reaction Status Date / Time No Known Allergies Allergy Verified 02/05/23 09:28 Review of Systems Review of Systems: All systems reviewed & are unremarkable except as noted in HPI and below Constitutional: Constitutional: Reports as per HPI Eyes: Eyes: Reports as per HPI ENT: Reports system reviewed and no additional complaints, except as documented Comments: the patient complained of left upper dental pain after inflation of the rhino rocket. Cardiovascular: Cardiovascular: Reports as per HPI and Reports no additional cardiovascular complaints Respiratory: Respiratory: Reports as per HPI and Reports no additional respiratory complaints Gastrointestinal: Gastrointestinal: Reports as per HPI and Reports no additional gastrointestinal complaints Genitourinary: Genitourinary: Reports no additional male genitourinary complaints Musculoskeletal: Musculoskeletal: Reports no additional musculoskeletal complaints and Reports as per HPI Integumentary/Breasts: Skin/Breast: Reports system reviewed and no additional complaints, except as docu and Reports as per HPI Neurologic: Reports system reviewed and no additional complaints, except as documented and Reports as per HPI Psychiatric: Psychiatric: Reports no additional psychiatric complaints and Reports as per HPI Endocrine: Endocrine: Reports no additional endocrine complaints and Reports as per HPI Hematologic/Lymphatic: Hematologic/Lymphatic: Reports no additional hematologic/lymphatic complaints and Reports as per HPI Allergic/Immunologic: Allergic/Immunologic: Reports no additional allergic/immunologic complaints and Reports as per HPI PMFSH Past Medical History Medical History Aortic stenosis Bilateral primary osteoarthritis of knee Diverticulosis Essential (primary) hypertension Family history of unspecified malignant neoplasm Hypokalemia Lumbar spondylosis Male erectile disorder MCL sprain of right knee Obesity (BMI 30.0-34.9) Osteoarthritis of right knee Prediabetes Sjogrens syndrome Tear of medial meniscus of right knee Unspecified atrial fibrillation Surgical History Surgical History History of laparoscopic appendectomy History of meniscectomy of right knee (~10/13/19) Partial Lateral
--- NOTE | 2023-02-05 09:44 | PC.NURSE ---
RHINO ROCKET REMOVED PER ERP, NO BLEEDING OF YET
== END 2023-02-05 10:10 | disposition home or self-care (01) ==
LOC: CHSED 09:52
PROVIDERS: Emergency Provider Internal Medicine Critical Care Medicine; PCP Family Medicine
DX: R04.0 Epistaxis (principal); I11.0 Hypertensive heart disease with heart failure; I50.9 Heart failure, unspecified; I48.91 Unspecified atrial fibrillation; Z79.84 Long term (current) use of oral hypoglycemic drugs; Z79.01 Long term (current) use of anticoagulants
CPT/HCPCS: 99282

== ENCOUNTER 2023-02-16 05:58 | Emergency (ER) | payer MEDICARE, SELFPAY ==
[2023-02-16 06:01] VITALS: BP 154/91; PULSE 87; RESP 18; O2SAT 97
--- NOTE | 2023-02-16 06:25 | ED.GENADULT ---
HPI - General Adult General Chief complaint: Epistaxis Stated complaint: nose bleed History of Present Illness HPI narrative: 77yo man on rivaroxaban for atrial fibrillation presents with a nosebleed. Had this last week and had to wear a pack for several days, which was miserable. No fevers, chills, sinus congestion, or trauma. Related Data Home Medications Medication Instructions Recorded Confirmed metformin 500 mg tablet,extended 500 mg PO DAILY 11/27/22 02/16/23 release 24 hr rivaroxaban 20 mg tablet (Xarelto) 20 mg PO HS 11/27/22 02/16/23 furosemide 20 mg tablet 20 mg PO DAILY 02/04/23 02/16/23 sacubitril 24 mg-valsartan 26 mg 1 tablet PO DAILY 02/04/23 02/16/23 tablet (Entresto) aspirin 81 mg tablet,delayed 81 mg PO DAILY 02/10/23 02/16/23 release (Adult Aspirin Regimen) omega 7-zbc-nsg-fish oil 1,200 mg See Rx Instructions .Route .COMPLEX 02/10/23 02/16/23 (144 mg-216 mg) capsule (Fish Oil) Allergies Allergy/AdvReac Type Severity Reaction Status Date / Time No Known Allergies Allergy Verified 02/16/23 06:00 Review of Systems Review of Systems: All systems reviewed & are unremarkable except as noted in HPI and below Constitutional: Constitutional: Denies chills and Denies fever(s) Eyes: Eyes: Denies change in vision ENT: Denies dysphagia, Denies vertigo, Denies dizziness and Reports epistaxis Cardiovascular: Cardiovascular: Denies chest pain Respiratory: Respiratory: Denies cough and Denies dyspnea [facility] Past Medical History Medical History Aortic stenosis Bilateral primary osteoarthritis of knee Diverticulosis Essential (primary) hypertension Family history of unspecified malignant neoplasm Hypokalemia Lumbar spondylosis Male erectile disorder MCL sprain of right knee Obesity (BMI 30.0-34.9) Osteoarthritis of right knee Prediabetes Sjogrens syndrome Tear of medial meniscus of right knee Unspecified atrial fibrillation Surgical History Surgical History History of laparoscopic appendectomy History of meniscectomy of right knee (~10/13/19) Partial Lateral & Medial Status post medial meniscectomy of knee Family History Family History Mother Family history of cardiovascular disease Hypertension Father Family history of lung cancer Sibling Cancer Heart disease Other Family history of elevated blood lipids Family history of pancreatic cancer Social History Social History Smoking status: Never smoker Alcohol intake: current Drinks per week: 12 Alcohol use details: 1-2 per day Substance use: current Substance use type: does not use Lack of Transportation: No Lack of Food: Never True Current Housing: I Have Housing Concerned About Future Housing: No Difficulty Paying Gas/Electric Bills: No Difficulty Paying for Meds: No Currently Unemployed: No Education: Trade/Vocational Certificate Difficulty w/ Childcare or Family Care: No Living arrangements: with family Gender identity (if verbalized by the patient): Male Spiritual care concerns: No Exam Const: General: healthy appearing, no acute distress and alert Nutritional Appearance: well nourished HENMT: Other: Slow anterior epistaxis. While nose is clamped, no blood passing anteriorly or posteriorly. No mass. Once unclamped after 30 minutes, there is dried blood and clot over the septum. No visible bleeding vessel. Eyes: Conjunctivae: conjunctivae normal Neck: Other: supple Resp: Effort & Inspection: normal respiratory effort and not labored Cardio: Rate: regular rate Rhythm: abnormal rhythm Other: afib Skin: General skin exam: normal color, no jaundice and no pallor Course Course Emergency Course:
[2023-02-16] MEDS: OXYMETAZOLINE HCL 0.05% NAS 15 ML BTL (*BKC) 2 SPRAY NASAL (06:42)
[2023-02-16 07:35] VITALS: BP 136/75; PULSE 84; RESP 16; TEMP 36.6; O2SAT 98
== END 2023-02-16 07:41 | disposition home or self-care (01) ==
PROVIDERS: Emergency Provider Emergency Medicine; PCP Family Medicine
DX: R04.0 Epistaxis (principal); I10 Essential (primary) hypertension; I48.91 Unspecified atrial fibrillation; Z79.01 Long term (current) use of anticoagulants; Z79.82 Long term (current) use of aspirin; Z79.84 Long term (current) use of oral hypoglycemic drugs
CPT/HCPCS: 30901; 99283; A9270

== ENCOUNTER 2023-06-11 13:50 | Outpatient (CLI) | payer MEDICARE, SELFPAY ==
--- NOTE | ~2023-06-11 | CT_ITS ---
EXAMINATION: CT LE RT wo con DATE: 06/11/2023 13:45 INDICATION: Right knee osteoarthritis for preoperative planning. TECHNIQUE: High resolution computed tomography (CT) of the right lower extremity from the hip through the ankle was performed without intravenous contrast. Additional sagittal and coronal reconstruction s were performed. Automated exposure control and iterative reconstruction technique were employed. Th e dose-length product was 1732.88 mGy-cm. COMPARISON: Knee radiographs dated 06/02/2023 FINDINGS: Tricompartmental osteoarthritis at the right knee with severe medial compartment joint space narrowin g on prior radiographs which is underestimated on the current nonweightbearing CT images. There is mi ld subarticular eburnation and cystlike changes at both the anterior weightbearing medial femoral con dyle and medial tibial plateau. At least mild osteoarthritis at the lateral and patellofemoral compar tments with additional scattered mild subarticular cystlike changes. No knee joint effusion. Addition al mild particular osteoarthritis at the right hip, right ankle and subtalar joints. Small heterotopi c ossification along the deep deltoid ligament at the right ankle consistent with likely sequela of c hronic sprain. Small Achilles and plantar calcaneal spurs. There is prominent fatty atrophy of the me dial head of the right gastrocnemius muscle belly and patchy moderate fatty atrophy of the medial ajx e of the soleus muscle belly. There are few diverticula along the visualized sigmoid colon. Prostatom egaly. No pathologically enlarged right pelvic or inguinal lymphadenopathy. IMPRESSION: 1. Tricompartmental osteoarthritis at the right knee, severe at the medial compartment. 2. Severe fatty atrophy of the medial head of the right gastrocnemius muscle with focal moderate fatt y atrophy of the medial side of the soleus muscle belly. Reviewed, dictated and finalized at location A. IMPRESSION: 1. Tricompartmental osteoarthritis at the right knee, severe at the medial comp artment. 2. Severe fatty atrophy of the medial head of the right gastrocnemius muscle wi th focal moderate fatty atrophy of the medial side of the soleus muscle belly.
[2023-06-11 14:53] LABS: Hematocrit 43.9 % (42.0-52.0); Hemoglobin 14.3 g/dL (14.0-18.0)
[2023-06-11 15:25] LABS: Albumin Level 4.3 g/dL (3.5-5.1); Estimated Glomerular Filt Rate > 60
[2023-06-11 16:15] LABS: Urine Cotinine NEGATIVE
== END 2023-06-11 13:51 | disposition home or self-care (01) ==
PROVIDERS: PCP Family Medicine; Visit Provider Orthopaedic Surgery
DX: M17.11 Unilateral primary osteoarthritis, right knee (principal); I48.91 Unspecified atrial fibrillation; R73.03 Prediabetes; Z79.01 Long term (current) use of anticoagulants; M54.17 Radiculopathy, lumbosacral region; I10 Essential (primary) hypertension
CPT/HCPCS: 73700; 80307; 82040; 82565; 83036; 85014; 85018

== ENCOUNTER 2023-07-23 11:50 | Outpatient (CLI) | payer MEDICARE, SELFPAY ==
[2023-07-23 13:10] LABS: Basophils Absolute Auto 0.1 K/mm3 (0.0-0.1); Basophils Percent Auto 0.9 % (0.2-1.2); Eosinophils Absolute Auto 0.1 K/mm3 (0-0.3); Eosinophils Percent Auto 1.9 % (0-4.4); Hematocrit 45.5 % (42.0-52.0); Immature Granulocyte Absolute 0.01 K/mm3 (0.00-0.031); Immature Granulocyte Percent A 0.2 % (0-0.5); Lymphocytes Absolute Auto 1.63 K/mm3 (0.9-3.2); Lymphocytes Percent Auto 25.7 % (18.3-44.2); Mean Corpuscular Hemoglobin 31.6 pg (26-34); Mean Corpuscular Volume 95.8 fl (80-100); Mean Platelet Volume 10.9 fl (7.4-10.4); Monocytes Absolute Auto 0.7 K/mm3 (0.1-0.6); Monocytes Percent Auto 10.7 % (2.6-8.5); Neutrophils Absolute Auto 3.8 K/mm3 (1.3-6.7); Neutrophils Percent Auto 60.6 % (45.5-73.1); Platelet Count Result 145 k/mm3 (150-375); Red Blood Count 4.75 M/mm3 (4.6-6.20); Red Cell Distribution Width 12.9 % (11.5-14.5); White Blood Count 6.3 K/mm3 (4.5-10.0)
[2023-07-23 13:26] LABS: Anion Gap 10 mmol/L (8-16); Blood Urea Nitrogen 19 mg/dL (9-20); Calcium 9.7 mg/dL (8.4-10.2); Carbon Dioxide 27 mmol/L (22-30); Chloride 102 mmol/L (98-107); Estimated Glomerular Filt Rate > 60; Glucose 85 mg/dL (65-110); Potassium 4.5 mmol/L (3.4-5.0); Sodium 139 mmol/L (137-145)
== END 2023-07-23 11:51 | disposition home or self-care (01) ==
LOC: ANHSURGERY 11:54
PROVIDERS: Anesthesiology; PCP Family Medicine; Visit Provider Orthopaedic Surgery
DX: M17.11 Unilateral primary osteoarthritis, right knee (principal); R73.03 Prediabetes; Z01.818 Encounter for other preprocedural examination
CPT/HCPCS: 36415; 80048; 85025; 87081

== ENCOUNTER 2023-08-11 14:21 | Inpatient (IN) | payer MEDICARE, SELFPAY ==
[2023-07-23 12:01] VITALS: BMI 32.5
--- NOTE | 2023-07-23 12:35 | PC.NURSE ---
Addendum entered by Veronica Lawrence RN 07/23/23 12:42: ARRIVE AT 0830 FOR 1030 SURGERY Original Note: Report to the Outpatient Waiting Room, entrance under the green pavilion located off [facility], at time _0630 on date _08/10/23 . Planned Procedure Time: ___1030 . Time changes happen often and if your time is changed the preop area will call you the afternoon before. - You and your visitor will be asked to self-screen and do not enter if you have any COVID symptoms. - A mask is optional within the hospital at this time. Patients may have clear liquids (water, carbonated beverages, clear teas, apple juice) until 3 hours prior to surgery with a maximum of 20 ounces. - No food from midnight until time of surgery - Infants may have breast milk until 4 hours before surgery, formula 6 hours prior to surgery. - Children will be allowed to drink immediately following surgery. If applicable, please bring a bottle or sippy cup to assist with drinking. Juice, water, soda, and popsicles are readily available. For infants on formula, please bring formula the day of surgery. Pacifiers are allowed. Take the following medications with a SIP of water the morning of surgery: ____AMLODIPINE,METOPROLOL DO NOT STOP ANY OF YOUR OTHER PRESCRIPTION MEDICATIONS PRIOR TO SURGERY ?EXCEPT THE FOLLOWING Medications to discontinue per physician __ASPIRIN HOLD 7 DAYS PRE OP PER DR LOFTON LAST DOSE08/02/23. PATIENT STATES HOLD XARELTO 3 DAYS PRE OP.LAST DOSE 08/06/23 ALL VITAMINS AND SUPPLEMENTS 3 DAYS PRE OP.LAST DOSE 08/06/23 Please no make-up, nail andorran, hairspray, perfume, deodorant, or body powder the day of surgery. No jewelry (including any body piercings) or valuables the day of surgery, leave them at home. Please take a shower or bath the night before, or the morning of, surgery with an antibacterial soap. Wear comfortable, loose fitting clothing. Children are encouraged to wear pajamas. - Jewelry must be removed prior to entering the operating room. Rings and piercings that are not removed may be cut off. - The hospital will not accept responsibility for valuables. - Please leave all valuables, including medications, at home the day of surgery. If you are going home after surgery, a licensed commercial collections driver must drive you home. - NO public transportation without another adult if you receive anesthesia. - We recommend that an adult stay with you for 24 hours following discharge. - We also recommend that you do not drive, make important decision, drink alcoholic beverages, or take any drugs that were not prescribed by your health care provider for at least 24 hours after your discharge time. Follow any additional instructions given to you from your surgeon. If you or anyone in your household have experienced Covid symptoms in the past week, please notify your surgeon or the nurse liaison at the phone number below for possible testing. VERBAL AND WRITTEN instructions given to __PATIENT AND KYLE and asked if any additional questions and then verbalized understanding. Patient advised to call surgeon office or pre surgery nurse liaison [phone] if any additional questions.
[2023-07-23 12:56] VITALS: BP 136/81; PULSE 82; RESP 18; TEMP 36.6; O2SAT 97
[2023-08-10] VITALS (15 sets, daily range): BP systolic 97–122; BP diastolic 49–82; PULSE 67–88; RESP 12–20; TEMP 36.1–36.8; O2SAT 90–100
--- NOTE | 2023-08-10 07:14 | WPDHPUPDATE1 ---
History and Physical Update Update Date/Time: 08/10/23 07:14 History and Physical has been reviewed, including an updated exam of the patient. There are NO changes in the patient's condition. Risks, benefits, and alternatives have been discussed and questions answered. Patient agrees to proceed with procedure.
[2023-08-10] MEDS: ACETAMINOPHEN 500 MG TABLET 1000 MG PO (08:55)
[2023-08-10] MEDS: LACTATED RINGERS 1,000 ML 30 ML IV CONT ×2 (09:15→13:13)
--- NOTE | 2023-08-10 09:16 | WPDANESEPPF ---
Anes - Initial Pre Proc Eval Procedure: Operation Date: 08/10/23 10:30 Proposed Procedures p Right Custom Total Knee Arthroplasty - Rolf Alfonso MD Date/Time: 08/10/23 09:16 Surgeon: Rolf Alfonso MD Pre Op Diagnosis: Prim OA Right Knee Patient Data Age: 78 Gender: M Height: 1.73 m Weight: 97.2 kg Last Vital Signs Temp 36.6 C 07/23/23 12:56 Pulse 82 07/23/23 12:56 Resp 18 07/23/23 12:56 BP 136/81 07/23/23 12:56 Pulse Ox 97 07/23/23 12:56 O2 Del Method Room Air 07/23/23 12:56 Allergies Allergy/AdvReac Type Severity Reaction Status Date / Time No Known Allergies Allergy Verified 08/10/23 08:52 Home Medications Medication Instructions Recorded Confirmed Type metformin 500 mg tablet,extended 500 mg PO DAILY 11/27/22 08/10/23 History release 24 hr rivaroxaban 20 mg tablet (Xarelto) 20 mg PO HS 11/27/22 08/10/23 History metoprolol succinate 100 mg 100 mg PO DAILY #90 tabs 11/30/22 08/10/23 Rx tablet,extended release 24 hr (Toprol XL) spironolactone 25 mg tablet 25 mg PO DAILY #90 tabs 11/30/22 08/10/23 Rx furosemide 20 mg tablet 20 mg PO DAILY 02/04/23 08/10/23 History sacubitril 24 mg-valsartan 26 mg 1 tablet PO BID 02/04/23 08/10/23 History tablet (Entresto) aspirin 81 mg tablet,delayed 81 mg PO DAILY 02/10/23 08/10/23 History release (Adult Aspirin Regimen) amlodipine 10 mg tablet 10 mg PO DAILY #90 tabs 03/30/23 08/10/23 Rx nwgvqfvx-ch-nwxrn 300 mcg-K 60 1 tablet PO DAILY 07/23/23 08/10/23 History mcg-lycop 600 mcg-lutein 300 mcg tablet (Centrum Silver Men) Patient hx anesthesia problems: none Family hx anesthesia problems: none Results Review: All pre-operative results and documents have been reviewed as part of the pre-operative evaluation. [facility] Past Medical History Medical History Aortic stenosis Bilateral primary osteoarthritis of knee Diverticulosis Essential (primary) hypertension Family history of unspecified malignant neoplasm Hypokalemia Lumbar spondylosis Male erectile disorder MCL sprain of right knee Obesity (BMI 30.0-34.9) Osteoarthritis of right knee Prediabetes Sjogrens syndrome Tear of medial meniscus of right knee Unspecified atrial fibrillation Surgical History Surgical History History of laparoscopic appendectomy History of meniscectomy of right knee (~10/13/19) Partial Lateral & Medial Status post medial meniscectomy of knee Family History Family History Mother Family history of cardiovascular disease Hypertension Father Family history of lung cancer Sibling Cancer Heart disease Other Family history of elevated blood lipids Family history of pancreatic cancer Social History Social History Smoking status: Never smoker Additional smoking assessment comments: DENIES ANY FORM OF TOBACCO USE Alcohol intake: current Drinks per week: 12 Alcohol use details: 1-2 per day Substance use: current Substance use type: does not use Lack of Transportation: No Lack of Food: Never True Current Housing: I Have Housing Concerned About Future Housing: No Difficulty Paying Gas/Electric Bills: No Difficulty Paying for Meds: No Currently Unemployed: No Education: Trade/Vocational Certificate Difficulty w/ Childcare or Family Care: No Living arrangements: with family Gender identity (if verbalized by the patient): Male Spiritual care concerns: No Anes - Eval Final PreProcedure Day of Procedure 08/10/23 09:16 Patient weight: overweight Heart: irregular rhythm and murmur Lungs: clear to auscultation Airway: Mallampati scale class II Neurological: alert and oriented Last oral intake: >/= 8 hours ASA classific
[2023-08-10 09:27] LABS: Glucose Point of Care 97 mg/dl (65-105)
--- NOTE | 2023-08-10 10:35 | WPDANESPNB ---
Anes - Peripheral Nerve Block Date/Time: 08/10/23 10:35 I have discussed with the patient/family/POA the placement of a peripheral nerve block for post-operative pain management, including associated risks, benefits, complications, and side effects. Alternative methods of post-operative analgesia were detailed. Questions were solicited and answers provided to the satisfaction of the patient/family/POA. Time-Out: A pre-procedural Time-Out was completed immediately before starting the procedure and confirmed: Patient Identification, Site, Procedure, Patient Position and the Availability of Requisite Equipment. Clinical Indications: Acute post-operative pain management requested by the operative surgeon. Nerve Block Insertion Note Anes-nerve block: adductor canal right Patient position: supine Skin prep: chlorhexidine Needle: 22 gauge, stimulating, insulated echogenic needle. Needle length: 80 mm Technique: ultrasound Technique comment: mid1mg [id number] Injectate: bupivacaine 0.5% with epi 5 mcg/ml (30ml no epi) and dexamethasone (mg) (4) Observations: tolerated well Complications: none Procedure start time:: 1019 Procedure end time:: 1025
[2023-08-10] MEDS: ceFAZolin 2 GM/D5W 50 ML 2 GM/50 ML BAG IVPB ×2 (10:37→17:56)
[2023-08-10] MEDS: TRANEXAMIC ACID 1,000MG/ISO100 1,000 MG/100 ML BAG 200 MG IVPB (10:43)
[2023-08-10] MEDS: GENTAMICIN BONE CEMENT REFOBACIN 1 EACH TOPICAL (11:24)
--- NOTE | 2023-08-10 13:18 | W.PM.PROC2 ---
Procedure Note - Detailed Date of Procedure 08/10/23 Pre-op Diagnosis Prim OA Right Knee Post-op Diagnosis Same Procedure Performed Total knee arthroplasty, right. Surgeon Rolf Alfonso MD Anesthesia General and Regional (Subsartorial block.) Findings Excellent bone quality. Moderate medial release. Description of Procedure Preoperative antibiotics were given. The limb was prepped and draped in the usual sterile fashion with a well-padded tourniquet high on the thigh. The limb was exsanguinated and the tourniquet inflated to 300 mmHg. A longitudinal incision was created just medial to the patella. A trivector approach to the knee was performed. Arthrotomy was taken down through the joint capsule. No significant releases were initially taken. The femur was exposed and the F1 jig was applied. The coring tool was used to remove the cartilage for the F2 jig to sit flush with the bone. The jig was pinned and the distal cut carefully taken. Caliper measurements confirmed appropriate bony resections according to the preoperative templated plan. The F4 cutting jig for the femur was applied, at the standard rotation. The AP and anterior chamfer cuts were taken. The F5 jig was applied and the posterior chamfer cuts were taken. The tibia was prepared using the T1 jig, after removing cartilage for the jig contact points. Proper alignment was checked with the alignment nate. The tibia was cut using the T1u guide. Gap balancing was performed. Gap measurements were taken and the knee was trialed. Excellent alignment and soft tissue balancing was confirmed. The posterior cruciate ligament was recessed along the proximal tibia. The patella was cut for resurfacing. Three lug holes were drilled. Meniscal remnants were removed. The trial components were assembled. Excellent range of motion and proper soft tissue balancing were confirmed throughout the full range of motion. Patellar tracking was excellent. The knee was copiously irrigated periodically throughout the procedure. The real implants were cemented into position. Excess cement was carefully removed. The wound was closed in layers with interrupted #1 Vicryl suture, #1 strata fix suture, 2-0 strata fix suture, 3-0 strata fix suture. Steri-Strips placed on the skin with the knee flexed. Sterile bulky dressing applied. The patient was brought to the recovery room in stable condition. There were no complications. Implants Conform[employer] Imprint total knee arthroplasty. Cemented. Cruciate retaining. 6 mm insert. 38 mm oval patella. Estimated Blood Loss 50 Drains No Complications No immediate complications Condition Stable Disposition PACU [facility] Billing Surgery - Charge Forward: Surgery Billing
[2023-08-10 13:48] LABS: Glucose Point of Care 129 mg/dl (65-105)
--- NOTE | 2023-08-10 15:22 | ADMGEN ---
This patient, Reggie Angeles, was admitted to Medical Room 244-. Patient/family oriented to hospital policies and general routines including ID bracelet, bed and alarms, visiting hours, pain management, procedures, bathroom and other care routines, personal items, smoking policy, room service/diet, and visiting hours. Information on how to activate the Rapid Response Team has been discussed. Patient/Family are encouraged to report perceived risks to care and to ask questions if they do not understand what they are told or what they should do.
[2023-08-10] MEDS: ONDANSETRON INJ 4 MG/2 ML VIAL IV PUSH (15:26)
[2023-08-10] MEDS: SODIUM CHLORIDE 0.9% IV 1,000 ML 125 ML IV CONT (15:26)
[2023-08-10] MEDS: SACUBITRIL/VALSARTAN 24-26 MG TABLET 1 TAB PO (18:06)
[2023-08-10] MEDS: SENNA/DOCUSATE SODIUM TABLET 2 TAB PO (18:08)
[2023-08-10] MEDS: MELOXICAM 7.5 MG TABLET PO (18:08)
[2023-08-10] MEDS: ASPIRIN 81 MG ENTERIC TABLET PO ×2 (18:08→20:45)
--- NOTE | 2023-08-10 19:01 | PC.NURSE ---
Patient vomited after taking 1700 medications. Approximately 200mls of undigested food/pills.
[2023-08-10] MEDS: diphenhydrAMINE HCl INJ 50 MG/ML VIAL 25 MG IV PUSH (19:17)
[2023-08-11] VITALS (11 sets, daily range): BP systolic 104–128; BP diastolic 51–70; PULSE 62–81; RESP 16–20; TEMP 36.4–36.9; O2SAT 91–97
--- NOTE | ~2023-08-11 | US_ITS ---
EXAMINATION: US renal BI DATE: 08/11/2023 13:51 INDICATION: Acute kidney injury TECHNIQUE: Multiple grayscale and Doppler ultrasound images of the kidneys were obtained. COMPARISON: None. FINDINGS: The right kidney measures 11 x 6 x 5 cm. The left kidney measures 12.7 x 6 x 5 cm and conta ins a 1.8 cm cyst. The kidneys demonstrate normal parenchymal echogenicity. There is no hydronephrosi s. The bladder is normal. IMPRESSION: 1. Unremarkable kidneys without hydronephrosis. Reviewed, dictated and finalized at location B. GY AUDIT ADVISOR
--- NOTE | ~2023-08-11 | XR_ITS ---
EXAMINATION: [id number] DATE: 08/10/2023 13:50 INDICATION: Postoperative evaluation following right total knee arthroplasty. TECHNIQUE: Anteroposterior and lateral views of the right knee were obtained. COMPARISON: None. FINDINGS: Right total knee arthroplasty with patellar resurfacing appears well seated and in near anatomic alig nment. Enthesophyte at the patellar insertion of the distal quadriceps tendon. No fractures identifie d. Expected postoperative subcutaneous and intra-articular gas. IMPRESSION: 1. Right total knee arthroplasty, negative for postoperative purposes. Reviewed, dictated and finalized at location A. ITION SPECIALIST
[2023-08-11] MEDS: ceFAZolin 2 GM/D5W 50 ML 2 GM/50 ML BAG IVPB ×2 (02:00→10:15)
[2023-08-11 04:55] LABS: Basophils Percent Auto 0.4 % (0.2-1.2); Hematocrit 39.1 % (42.0-52.0); Hemoglobin 12.4 g/dL (14.0-18.0); Immature Granulocyte Absolute 0.04 K/mm3 (0.00-0.031); Immature Granulocyte Percent A 0.5 % (0-0.5); Lymphocytes Absolute Auto 0.48 K/mm3 (0.9-3.2); Lymphocytes Percent Auto 6.3 % (18.3-44.2); Mean Corpuscular HGB Conc 31.7 g/dl (32-36); Mean Corpuscular Hemoglobin 31.2 pg (26-34); Mean Corpuscular Volume 98.5 fl (80-100); Mean Platelet Volume 11.3 fl (7.4-10.4); Monocytes Absolute Auto 0.4 K/mm3 (0.1-0.6); Neutrophils Absolute Auto 6.7 K/mm3 (1.3-6.7); Neutrophils Percent Auto 87.8 % (45.5-73.1); Platelet Count Result 126 k/mm3 (150-375); Red Blood Count 3.97 M/mm3 (4.6-6.20); Red Cell Distribution Width 12.7 % (11.5-14.5); White Blood Count 7.6 K/mm3 (4.5-10.0)
[2023-08-11 05:05] LABS: Anion Gap 6 mmol/L (8-16); Blood Urea Nitrogen 25 mg/dL (9-20); Calcium 8.3 mg/dL (8.4-10.2); Carbon Dioxide 23 mmol/L (22-30); Chloride 105 mmol/L (98-107); Estimated CRCL calculation 40 ml/min; Estimated Glomerular Filt Rate 45; Glucose 190 mg/dL (65-110); Potassium 5.3 mmol/L (3.4-5.0); Sodium 134 mmol/L (137-145)
--- NOTE | 2023-08-11 08:27 | WPDANESPN ---
Anes - Prog Note Post-Op Date/Time: 08/11/23 08:27 Cardiovascular status: normal Respiratory status: normal Airway patency: baseline Mental status: baseline Post-Op hydration status: normal Vital Signs: Last Vital Signs Temp 36.9 C 08/11/23 08:05 Pulse 77 08/11/23 08:05 Resp 18 08/11/23 08:05 BP 128/54 L 08/11/23 08:12 Pulse Ox 94 08/11/23 08:05 O2 Del Method Nasal Cannula 08/11/23 03:47 O2 Flow Rate 2 08/11/23 03:47 Pain Score (VAS): 0 I/O: Intake & Output 08/10/23 08/11/23 08/11/23 23:59 07:59 15:59 Intake Total 1270 500 Output Total 320 675 Balance 950 -175 Laboratory Tests 08/11/23 04:20 08/11/23 04:20 08/10/23 08/10/23 08/10/23 09:03 09:18 13:45 WBC RBC Hgb Hct MCV MCH MCHC RDW Plt Count MPV Immature Gran % (Auto) Neut % (Auto) Lymph % (Auto) [place] % (Auto) Eos % (Auto) Baso % (Auto) Lymph # (Auto) [place] # (Auto) Eos # (Auto) Baso # (Auto) Abs Immat Gran (auto) Absolute Neuts (auto) Absolute Nucleated RBC Nucleated RBC % % Immature Plt Fraction Sodium Potassium Chloride Carbon Dioxide Anion Gap BUN Creatinine Estim Creat Clear Calc Estimated GFR Glucose POC Capillary Glucose 97 129 H Calcium Blood Type A Positive Antibody Screen Positive Antibody Identification Anti-Jazmin Antigen Identification TNP ANTOINETTE, IgG Interpret Not Performed ANTOINETTE, Poly Interpret Negative ANTOINETTE, Complement Interp Not Performed Enhanced Crossmatch See Detail 08/11/23 04:20 WBC 7.6 RBC 3.97 L Hgb 12.4 L Hct 39.1 L MCV 98.5 MCH 31.2 MCHC 31.7 L RDW 12.7 Plt Count 126 L MPV 11.3 H Immature Gran % (Auto) 0.5 Neut % (Auto) 87.8 H Lymph % (Auto) 6.3 L [place] % (Auto) 5.0 Eos % (Auto) 0.0 Baso % (Auto) 0.4 Lymph # (Auto) 0.48 L [place] # (Auto) 0.4 Eos # (Auto) 0.0 Baso # (Auto) 0.0 Abs Immat Gran (auto) 0.04 H Absolute Neuts (auto) 6.7 Absolute Nucleated RBC 0.0 Nucleated RBC % 0.0 % Immature Plt Fraction 6.0 Sodium 134 L Potassium 5.3 H Chloride 105 Carbon Dioxide 23 Anion Gap 6 L BUN 25 H Creatinine 1.50 H Estim Creat Clear Calc 40 Estimated GFR 45 L Glucose 190 H POC Capillary Glucose Calcium 8.3 L Blood Type Antibody Screen Antibody Identification Antigen Identification ANTOINETTE, IgG Interpret ANTOINETTE, Poly Interpret ANTOINETTE, Complement Interp Enhanced Crossmatch Post-procedural complaints: none Patient Feedback: Patient satisfied with anesthetic care.
[2023-08-11] MEDS: OPTI-GEN TAB 1 TABLET PO (08:43)
[2023-08-11] MEDS: ASPIRIN 81 MG ENTERIC TABLET PO ×2 (08:43→17:48)
[2023-08-11] MEDS: amLODIPine BESYLATE 5 MG TABLET 10 MG PO (08:44)
[2023-08-11] MEDS: FUROSEMIDE 20 MG TABLET PO (08:44)
[2023-08-11] MEDS: predniSONE 5 MG TABLET PO (08:44)
[2023-08-11] MEDS: SENNA/DOCUSATE SODIUM TABLET 2 TAB PO ×2 (08:45→17:48)
[2023-08-11] MEDS: METOPROLOL SUCCINATE EXT REL 100 MG TABCR PO (08:45)
[2023-08-11] MEDS: SACUBITRIL/VALSARTAN 24-26 MG TABLET 1 TAB PO (08:46)
[2023-08-11] MEDS: MELOXICAM 7.5 MG TABLET PO (08:46)
[2023-08-11] MEDS: SPIRONOLACTONE 25 MG TABLET PO (08:46)
[2023-08-11] MEDS: ACETAMINOPHEN 500 MG TABLET 1000 MG PO ×2 (08:47→17:46)
[2023-08-11] MEDS: polyethylene glycoL 3350 17 GM POWD.PACK PO (08:48)
--- NOTE | 2023-08-11 12:36 | PM.PNORT ---
Progress Note: A&P Assessment and Plan (1) Status post total right knee replacement: Code(s): Z96.651 - Presence of right artificial knee joint Status: Acute (2) Postoperative renal impairment: Code(s): N99.89 - Other postprocedural complications and disorders of genitourinary system Status: Acute Plan Postop day 1: Right total knee arthroplasty. Patient tolerated procedure well. Patient's creatinine has increased to 1.50 from 1.1 pre-operatively. Also his GFR has decreased from greater than 60 to 45. He states he may be urinating less then he usually does. I recommend hospitalist consult. Pain manageable with pain medication. No numbness or tingling. Will likely need to stay overnight. Subjective Subjective Date/Time Seen: 08/11/23 12:36 Interval history: Patient resting comfortably in bed. Mild pain and discomfort. No other issues. States he doesnt feel like he is urinating as much as he usually does. Review of Systems Review of Systems: All systems reviewed & are unremarkable except as noted in HPI and below Exam Narrative: 78-year-old overweight male. Resting comfortably in chair. Alert and oriented x3. No acute distress. Wearing compression socks bilaterally. Dressing intact with small area of dried bloody drainage on Mepilex. Moderate swelling. No ecchymosis. No erythema. No hematoma. Range of motion limited due to pain. Calf nontender. Neurologic status intact. No varicosities. Distal pulses palpable. Objective Data Vital Signs Vital Signs: Vital Signs - 24 hr 08/10/23 13:13 08/10/23 13:25 08/10/23 13:40 Temperature 96.9 F L Pulse Rate 79 80 88 Respiratory Rate 12 12 12 Blood Pressure 121/79 103/55 L 114/82 Pulse Oximetry 92 92 96 Oxygen Delivery Simple Face Mask Simple Face Mask Simple Face Mask Oxygen Flow Rate 10 10 10 08/10/23 13:55 08/10/23 14:10 08/10/23 14:25 Temperature Pulse Rate 68 75 76 Respiratory Rate 20 18 12 Blood Pressure 97/63 L 110/57 L 98/60 L Pulse Oximetry 98 98 95 Oxygen Delivery Simple Face Mask Simple Face Mask Nasal Cannula Oxygen Flow Rate 10 10 4 08/10/23 14:40 08/10/23 14:55 08/10/23 15:10 Temperature 98.0 F Pulse Rate 71 76 72 Respiratory Rate 12 16 16 Blood Pressure 108/60 110/67 100/58 L Pulse Oximetry 94 96 90 Oxygen Delivery Nasal Cannula Nasal Cannula Oxygen Flow Rate 2 2 08/10/23 15:25 08/10/23 15:55 08/10/23 16:55 Temperature 98.2 F 98.2 F 98.3 F Pulse Rate 86 72 67 Respiratory Rate 16 18 18 Blood Pressure 106/62 101/57 L 105/49 L Pulse Oximetry 94 95 91 Oxygen Delivery Oxygen Flow Rate 08/10/23 18:58 08/10/23 20:45 08/11/23 00:47 Temperature 97.8 F 98.3 F Pulse Rate 75 80 Respiratory Rate 18 18 Blood Pressure 110/55 L 118/70 Pulse Oximetry 91 92 92 Oxygen Delivery Nasal Cannula Oxygen Flow Rate 2 08/11/23 03:47 08/11/23 04:35 08/11/23 08:06 Temperature 97.7 F Pulse Rate 81 Respiratory Rate 18 Blood Pressure 104/51 L Pulse Oximetry 91 91 Oxygen Delivery Nasal Cannula Room Air Oxygen Flow Rate 2 08/11/23 08:12 08/11/23 08:05 08/11/23 08:45 Temperature 98.4 F Pulse Rate 77 78 Respiratory Rate 18 Blood Pressure 128/54 L Pulse Oximetry 94 Oxygen Delivery Oxygen Flow Rate Intake/Output Intake/Output: Intake & Output 08/08/23 08/09/23 08/10/23 08/11/23 23:59 23:59 23:59 23:59 Intake Total 1620 740 Output Total 320 675 Balance 1300 65 Meds/Results Medications: Active Medications Generic Name Dose Route Start Last Admin Trade Name Rodrigo PRN Reason Stop Dose Admin Acetaminophen 1,000 mg 08/10/23 15:02 08/11/23 08:47 Acetaminophen 500 Mg Tablet PO 1,000 mg Q6H PRN Administration Pain Rated 1-3 Amlodipine Besylate 10 mg 08/11/23 09:00 08/11/23 08:44 Amlodipine Besylate 5 Mg Tablet PO 10 mg DAILY EMILY Administration Aspirin 81 mg 08/10/23 17:00 08/11/23 08:43 Aspirin 81 Mg Ent
--- NOTE | 2023-08-11 12:55 | P.CONS_ITS ---
Assessment and Plan Assessment and plan (1) Osteoarthritis of right knee: Code(s): M17.11 - Unilateral primary osteoarthritis, right knee Status: Acute Assessment and Plan: Postoperative day 1 status post right total knee arthroplasty. * Wound care, pain control, and DVT prophylaxis deferred to Dr. Alfonso. (2) Acute kidney injury: Code(s): N17.9 - Acute kidney failure, unspecified Status: Acute Assessment and Plan: Baseline creatinine ranges between 0.90 and 1.10 and was 1.50 on today's labs. * Likely multifactorial in etiology including decreased oral intake, vomiting, and lower blood pressures than baseline in conjunction with his home medicati ons to include Entresto, furosemide, and spironolactone. * He also took Bactrim for 5 days prior to surgery as per HPI. * Bladder scan showed no urinary retention and renal ultrasound was unremarkable. * Hold Entresto, furosemide, spironolactone, and meloxicam for now. * 1 L normal saline ordered with repeat labs this evening to ensure improvement. * Continue to monitor strict I/O and daily weights. (3) Hyperkalemia: Code(s): E87.5 - Hyperkalemia Status: Acute Assessment and Plan: Secondary to dehydration and worsening renal function in conjunction with Entresto and spironolactone use. * 1 L normal saline to be administered today with repeat potassium this evening. * Hold spironolactone and Entresto for now and continue to monitor closely. (4) Heart failure with reduced ejection fraction: Code(s): I50.20 - Unspecified systolic (congestive) heart failure Status: Acute Assessment and Plan: He appears clinically compensated and in fact is likely a bit dry. * Furosemide, spironolactone, and Entresto on hold at least for now given acute kidney injury. * Monitor volume status closely while judiciously hydrating (daily weights, I/O). (5) Thrombocytopenia: Code(s): D69.6 - Thrombocytopenia, unspecified Status: Acute Assessment and Plan: Platelets are a bit low at 126, possibly due to consumption from surgery. * Repeat CBC in a.m. and monitor. (6) Prediabetes: Code(s): R73.03 - Prediabetes Status: Acute Assessment and Plan: Recent hemoglobin A1c was 6.0%. * Hold metformin in light of acute kidney injury. * Random glucose this morning was 190. * Initiate sliding scale insulin, Accu-Cheks, and hypoglycemic protocol. (7) Essential hypertension: Code(s): I10 - Essential (primary) hypertension Status: Acute Assessment and Plan: Blood pressures have been at the low end of normal as detailed in HPI. * Hold amlodipine, furosemide, and spironolactone. * Continue metoprolol with parameters. (8) Atrial fibrillation: Code(s): I48.91 - Unspecified atrial fibrillation Status: Acute Assessment and Plan: He is in chronic atrial fibrillation is rate controlled. * Continue metoprolol with parameters. * Resume Xarelto when okay with Dr. Alfonso. Plan Thank you for allowing us to participate in this patient's care. Please do not hesitate to contact us with any questions. [facility] Data of Consult Date/Time: 08/11/23 12:55 Requesting Physician: Rolf Alfonso MD Consult Narrative Reason for consult: Postoperative renal impairment. Narrative: This is a very pleasant 78-year-old male postoperative day 1 stat
--- NOTE | 2023-08-11 12:55 | WPDCN ---
Assessment and Plan Assessment and plan (1) Osteoarthritis of right knee: Code(s): M17.11 - Unilateral primary osteoarthritis, right knee Status: Acute Assessment and Plan: Postoperative day 1 status post right total knee arthroplasty. Wound care, pain control, and DVT prophylaxis deferred to Dr. Alfonso. (2) Acute kidney injury: Code(s): N17.9 - Acute kidney failure, unspecified Status: Acute Assessment and Plan: Baseline creatinine ranges between 0.90 and 1.10 and was 1.50 on today's labs. Likely multifactorial in etiology including decreased oral intake, vomiting, and lower blood pressures than baseline in conjunction with his home medications to include Entresto, furosemide, and spironolactone. He also took Bactrim for 5 days prior to surgery as per HPI. Bladder scan showed no urinary retention and renal ultrasound was unremarkable. Hold Entresto, furosemide, spironolactone, and meloxicam for now. 1 L normal saline ordered with repeat labs this evening to ensure improvement. Continue to monitor strict I/O and daily weights. (3) Hyperkalemia: Code(s): E87.5 - Hyperkalemia Status: Acute Assessment and Plan: Secondary to dehydration and worsening renal function in conjunction with Entresto and spironolactone use. 1 L normal saline to be administered today with repeat potassium this evening. Hold spironolactone and Entresto for now and continue to monitor closely. (4) Heart failure with reduced ejection fraction: Code(s): I50.20 - Unspecified systolic (congestive) heart failure Status: Acute Assessment and Plan: He appears clinically compensated and in fact is likely a bit dry. Furosemide, spironolactone, and Entresto on hold at least for now given acute kidney injury. Monitor volume status closely while judiciously hydrating (daily weights, I/O). (5) Thrombocytopenia: Code(s): D69.6 - Thrombocytopenia, unspecified Status: Acute Assessment and Plan: Platelets are a bit low at 126, possibly due to consumption from surgery. Repeat CBC in a.m. and monitor. (6) Prediabetes: Code(s): R73.03 - Prediabetes Status: Acute Assessment and Plan: Recent hemoglobin A1c was 6.0%. Hold metformin in light of acute kidney injury. Random glucose this morning was 190. Initiate sliding scale insulin, Accu-Cheks, and hypoglycemic protocol. (7) Essential hypertension: Code(s): I10 - Essential (primary) hypertension Status: Acute Assessment and Plan: Blood pressures have been at the low end of normal as detailed in HPI. Hold amlodipine, furosemide, and spironolactone. Continue metoprolol with parameters. (8) Atrial fibrillation: Code(s): I48.91 - Unspecified atrial fibrillation Status: Acute Assessment and Plan: He is in chronic atrial fibrillation is rate controlled. Continue metoprolol with parameters. Resume Xarelto when okay with Dr. Alfonso. Plan Thank you for allowing us to participate in this patient's care. Please do not hesitate to contact us with any questions. HPI Data of Consult Date/Time: 08/11/23 12:55 Requesting Physician: Rolf Alfonso MD Consult Narrative Reason for consult: Postoperative renal impairment. Narrative: This is a very pleasant 78-year-old male postoperative day 1 status post elective right total knee arthroplasty whom the hospitalist service has been consulted for further workup of postoperative renal impairment. His medical history is significant for arthritis, hypertension, heart failure with reduced ejection fraction (estimated EF of 35% on cardiac catheterization in November 2022), coronary artery disease, chronic atrial fibrillation on anticoagulation, mild aortic valve stenosis, and prediabetes with a recent hemoglobin A1c of 6.0%. Anesthesia and operative notes were reviewed. He received a total
[2023-08-11] MEDS: SODIUM CHLORIDE 0.9% IV 1,000 ML 150 ML IV CONT (14:52)
[2023-08-11 20:29] LABS: Glucose Point of Care 145 mg/dl (65-105)
[2023-08-11 21:30] LABS: Anion Gap 6 mmol/L (8-16); Blood Urea Nitrogen 30 mg/dL (9-20); Calcium 8.4 mg/dL (8.4-10.2); Carbon Dioxide 24 mmol/L (22-30); Chloride 104 mmol/L (98-107); Estimated CRCL calculation 36 ml/min; Estimated Glomerular Filt Rate 39; Glucose 136 mg/dL (65-110); Sodium 134 mmol/L (137-145)
[2023-08-11] MEDS: SODIUM CHLORIDE 0.9% IV 1,000 ML 100 ML IV CONT (22:57)
[2023-08-12] MEDS: traZODone HCL 50 MG TABLET PO (01:08)
[2023-08-12 03:30] VITALS: BP 122/67; PULSE 58; RESP 18; TEMP 36.4; O2SAT 95
[2023-08-12 05:17] LABS: Alanine Aminotransferase 20 U/L (6-50); Albumin Level 3.8 g/dL (3.5-5.1); Alkaline Phosphatase 39 U/L (38-126); Anion Gap 7 mmol/L (8-16); Aspartate Amino Transferase 51 U/L (17-59); Bilirubin,Total 0.9 mg/dL (0.2-1.3); Blood Urea Nitrogen 26 mg/dL (9-20); Calcium 8.7 mg/dL (8.4-10.2); Carbon Dioxide 22 mmol/L (22-30); Chloride 106 mmol/L (98-107); Estimated CRCL calculation 46 ml/min; Estimated Glomerular Filt Rate 53; Glucose 119 mg/dL (65-110); Magnesium 2.2 mg/dL (1.6-2.3); Potassium 4.7 mmol/L (3.4-5.0); Sodium 135 mmol/L (137-145)
[2023-08-12 05:19] LABS: Hematocrit 39.2 % (42.0-52.0); Hemoglobin 12.4 g/dL (14.0-18.0); Mean Corpuscular HGB Conc 31.6 g/dl (32-36); Mean Corpuscular Hemoglobin 31.6 pg (26-34); Mean Platelet Volume 12.1 fl (7.4-10.4); Platelet Count Result 92 k/mm3 (150-375); Red Blood Count 3.92 M/mm3 (4.6-6.20); Red Cell Distribution Width 13.3 % (11.5-14.5); White Blood Count 15.6 K/mm3 (4.5-10.0)
[2023-08-12 08:00] VITALS: BP 107/61; PULSE 98; RESP 20; TEMP 37.1; O2SAT 93
[2023-08-12] MEDS: oxyCODONE HCL (*CRX) 5 MG TAB IR PO (08:08)
[2023-08-12] MEDS: OPTI-GEN TAB 1 TABLET PO (08:08)
[2023-08-12] MEDS: ASPIRIN 81 MG ENTERIC TABLET PO (08:08)
[2023-08-12 08:09] VITALS: PULSE 98
[2023-08-12] MEDS: METOPROLOL SUCCINATE EXT REL 100 MG TABCR PO (08:09)
[2023-08-12] MEDS: SENNA/DOCUSATE SODIUM TABLET 2 TAB PO (08:09)
[2023-08-12] MEDS: polyethylene glycoL 3350 17 GM POWD.PACK PO (08:11)
[2023-08-12 08:12] LABS: Glucose Point of Care 129 mg/dl (65-105)
[2023-08-12 09:32] LABS: Folic Acid > 20.0 ng/mL (2.76->20)
[2023-08-12] MEDS: ACETAMINOPHEN 500 MG TABLET 1000 MG PO (11:01)
[2023-08-12 12:00] VITALS: BP 112/57; PULSE 81; RESP 18; TEMP 36.6; O2SAT 95
[2023-08-12 12:15] LABS: Glucose Point of Care 112 mg/dl (65-105)
--- NOTE | 2023-08-12 13:10 | P.PNIM_ITS ---
Progress Note: A&P Assessment and Plan (1) Osteoarthritis of right knee: Code(s): M17.11 - Unilateral primary osteoarthritis, right knee Status: Acute Assessment and Plan: Postoperative day 2 status post right total knee arthroplasty. Patient has tolerated the procedure well. Pain controlled. Tolerating therapy. Wound care, pain control, and DVT prophylaxis per orthopedics (2) Acute kidney injury: Code(s): N17.9 - Acute kidney failure, unspecified Status: Acute Assessment and Plan: Baseline creatinine ranges between 0.90 and 1.10 and was 1.50 yesterday. Likely multifactorial due to decreased oral intake with vomiting, and/or lower blood pressures than baseline in conjunction with his home medications to include Entresto, furosemide, and spironolactone. He also took Bactrim for 5 days prior to surgery which could be playinig a part. * Bladder scan showed no urinary retention and renal ultrasound was unremarkable. * Holding Entresto, furosemide, spironolactone, and meloxicam for now. * 1 L normal saline given with improvement in renal function today. * IV fluids off. Continue to monitor strict I/O and daily weights. * Resume home meds tomorrow if renal function continues to improve. (3) Hyperkalemia: Code(s): E87.5 - Hyperkalemia Status: Acute Assessment and Plan: Secondary to dehydration and worsening renal function in conjunction with Entresto and spironolactone use. * 1 L normal saline to be administered today with repeat potassium normal * Hold spironolactone and Entresto for now and continue to monitor closely. (4) Heart failure with reduced ejection fraction: Code(s): I50.20 - Unspecified systolic (congestive) heart failure Status: Acute Assessment and Plan: He appears clinically compensated * Furosemide, spironolactone, and Entresto on hold at least for now given acute kidney injury. * Monitor volume status (5) Thrombocytopenia: Code(s): D69.6 - Thrombocytopenia, unspecified Status: Acute Assessment and Plan: Platelets are a bit low at 126, possibly due to consumption from surgery. * Repeat plt count worse at 92K. * Will need to be followed as outpatient. (6) Prediabetes: Code(s): R73.03 - Prediabetes Status: Acute Assessment and Plan: Recent hemoglobin A1c was 6.0%. * Holding metformin in light of acute kidney injury. * Random glucose this morning was 119 * Continue sliding scale insulin, Accu-Cheks, and hypoglycemic protocol. (7) Essential hypertension: Code(s): I10 - Essential (primary) hypertension Status: Acute Assessment and Plan: Blood pressures low end of normal * Holding amlodipine, Entresto, furosemide, and spironolactone. * Continue metoprolol with parameters. (8) Atrial fibrillation: Code(s): I48.91 - Unspecified atrial fibrillation Status: Acute Assessment and Plan: He is in chronic atrial fibrillation and is rate controlled. * Continue metoprolol with parameters. * Resume Xarelto when okay with Dr. Alfonso. Plan DVT Prophylaxis - SCDs Code status - full Subjective Date/time seen: 08/12/23 13:10 Interval history: 78yo male with CHF, pre-DM, cAFib and HTN here for elective Rt TKA. Assuming care. Chart reviewed. Up to the chair today. Working well with therapy. Pain contolled. No CP or SOB. Eating okay but doesn't like the food. No n/v since coming out of anesthesia Exam
--- NOTE | 2023-08-12 13:10 | PM.IMPN ---
Progress Note: A&P Assessment and Plan (1) Osteoarthritis of right knee: Code(s): M17.11 - Unilateral primary osteoarthritis, right knee Status: Acute Assessment and Plan: Postoperative day 2 status post right total knee arthroplasty. Patient has tolerated the procedure well. Pain controlled. Tolerating therapy. Wound care, pain control, and DVT prophylaxis per orthopedics (2) Acute kidney injury: Code(s): N17.9 - Acute kidney failure, unspecified Status: Acute Assessment and Plan: Baseline creatinine ranges between 0.90 and 1.10 and was 1.50 yesterday. Likely multifactorial due to decreased oral intake with vomiting, and/or lower blood pressures than baseline in conjunction with his home medications to include Entresto, furosemide, and spironolactone. He also took Bactrim for 5 days prior to surgery which could be playinig a part. Bladder scan showed no urinary retention and renal ultrasound was unremarkable. Holding Entresto, furosemide, spironolactone, and meloxicam for now. 1 L normal saline given with improvement in renal function today. IV fluids off. Continue to monitor strict I/O and daily weights. Resume home meds tomorrow if renal function continues to improve. (3) Hyperkalemia: Code(s): E87.5 - Hyperkalemia Status: Acute Assessment and Plan: Secondary to dehydration and worsening renal function in conjunction with Entresto and spironolactone use. 1 L normal saline to be administered today with repeat potassium normal Hold spironolactone and Entresto for now and continue to monitor closely. (4) Heart failure with reduced ejection fraction: Code(s): I50.20 - Unspecified systolic (congestive) heart failure Status: Acute Assessment and Plan: He appears clinically compensated Furosemide, spironolactone, and Entresto on hold at least for now given acute kidney injury. Monitor volume status (5) Thrombocytopenia: Code(s): D69.6 - Thrombocytopenia, unspecified Status: Acute Assessment and Plan: Platelets are a bit low at 126, possibly due to consumption from surgery. Repeat plt count worse at 92K. Will need to be followed as outpatient. (6) Prediabetes: Code(s): R73.03 - Prediabetes Status: Acute Assessment and Plan: Recent hemoglobin A1c was 6.0%. Holding metformin in light of acute kidney injury. Random glucose this morning was 119 Continue sliding scale insulin, Accu-Cheks, and hypoglycemic protocol. (7) Essential hypertension: Code(s): I10 - Essential (primary) hypertension Status: Acute Assessment and Plan: Blood pressures low end of normal Holding amlodipine, Entresto, furosemide, and spironolactone. Continue metoprolol with parameters. (8) Atrial fibrillation: Code(s): I48.91 - Unspecified atrial fibrillation Status: Acute Assessment and Plan: He is in chronic atrial fibrillation and is rate controlled. Continue metoprolol with parameters. Resume Xarelto when okay with Dr. Alfonso. Plan DVT Prophylaxis - SCDs Code status - full Subjective Date/time seen: 08/12/23 13:10 Interval history: 78yo male with CHF, pre-DM, cAFib and HTN here for elective Rt TKA. Assuming care. Chart reviewed. Up to the chair today. Working well with therapy. Pain contolled. No CP or SOB. Eating okay but doesn't like the food. No n/v since coming out of anesthesia Exam Narrative: AF 98.7 107/61 98 20 93% ra Gen - NARD Chest - R>L dry inspiratory crackles CV - irregularly irregular with 3/6 systolic murmur USB Abd - Soft, NT/ND, Positive BS Ext - No pedal edema. Blcak hose in place. Right knee dressing clean and dry Psych - Nml mood and affect Skin - Warm and dry Objective Data Vital Signs Vital Signs: Vital Signs - 24 hr 08/11/23 14:00 08/11/23 16:47 08/11/23 20:00 Temperature 98.2 F 97.6 F Pul
--- NOTE | 2023-08-13 14:20 | PM.DS ---
DS: Admitting Diagnosis Discharge Date 08/12/23 Admitting Diagnosis DJD right knee. DS: Discharge Diagnosis Discharge Diagnosis (1) Osteoarthritis of right knee: Code(s): M17.11 - Unilateral primary osteoarthritis, right knee Status: Acute (2) Status post total right knee replacement: Code(s): Z96.651 - Presence of right artificial knee joint Status: Acute (3) Postoperative renal impairment: Code(s): N99.89 - Other postprocedural complications and disorders of genitourinary system Status: Acute DS: Summary Hospital Course Reason for hospitalization: Total knee arthroplasty. Hospital Course: Tolerated surgery well. Elevated creatinine. Hospitalist consulted. Progressed appropriately with therapy. Status at Discharge Functional status at discharge: uses cane/walker Overall status at discharge: patient is progressing back to baseline Time Spent with Patient Time attestation: Total time spent providing and/or coordinating discharge services: Exam Const: General: no acute distress Resp: Effort & Inspection: normal respiratory effort Skin: Other: Wound healing well. Mepilex dressing intact. No hematoma or drainage. Neuro: Motor exam (neuro): 5/5 motor strength present throughout Sensory Exam: normal sensation Psych: Mental Status: mental status grossly normal Speech and movement: Normal speech and movement present Discharge Plan Discharge Consulting providers: Alba Wilson; Rayray Garcia; Alka Briones; Alfa Koehler; Ramiro Owen; Celia Bolaños Samantha J.; Ramon Graff Discharging Clinician: Rolf Alfonso Patient Disposition: Home, Self-Care Activity: december shower Diet: as tolerated Wound Care Instructions: follow printed instructions Discharge Instructions: See instruction sheet. Patient Instructions: Precautions after Total Joint Replacement Surgery (DC), Total Knee Replacement (DC) Follow-up/Referrals: Rolf Alfonso MD [Physician] - Discharge Medications: New prednisone 5 mg tablet 5 mg PO DAILY Qty: 10 0RF oxycodone-acetaminophen 5-325 mg tablet 1 - 2 tablet PO Q6H MDD 6 tablets PRN (Reason: pain) Qty: 30 0RF Xarelto 10 mg tablet 10 mg PO DAILY Qty: 7 0RF Rx Instructions: for 7 days. Then resume previous 20mg dose. Continued furosemide 20 mg tablet 20 mg PO DAILY Entresto 24-26 mg tablet 1 tablet PO BID aspirin [Adult Aspirin Regimen] 81 mg tablet,delayed release (DR/EC) 81 mg PO DAILY metformin 500 mg tablet extended release 24 hr 500 mg PO DAILY Rx Instructions: TAKE 1 TABLET BY MOUTH DAILY spironolactone 25 mg tablet 25 mg PO DAILY Qty: 90 2RF metoprolol succinate [Toprol XL] 100 mg tablet extended release 24 hr 100 mg PO DAILY Qty: 90 2RF Centrum Silver Men [id number] mcg Tablet 1 tablet PO DAILY amlodipine 10 mg tablet 10 mg PO DAILY Qty: 90 1RF Held Xarelto 20 mg tablet 20 mg PO HS Hold Instructions: Resume on 08/19/23. Will take 10mg daily for one week. Date of admission: 08/11/23 14:21 Primary Care Provider: Asim Beltran Admitting Provider: Rolf Alfonso Attending physician on admission: Rolf Alfonso Condition: Stable Quality VTE Prophylaxis VTE prophylaxis: mechanical ordered (SILVIA bonilla and Alec)
== END 2023-08-12 13:45 | disposition home or self-care (01) | DRG 470 ==
LOC: ANHSURGERY 14:34 → ANH2MED 14:34
PROVIDERS: Internal Medicine; Physician Assistant; Admitting Provider Orthopaedic Surgery; PCP Family Medicine; Visit Provider Orthopaedic Surgery
PROC: 0SRC0J9 Replacement of Right Knee Joint with Synthetic Substitute, Cemented, Open Approach (ICD-10-PCS; CPT 27447; principal; 2023-08-10 10:30)
DX: M17.0 Bilateral primary osteoarthritis of knee (principal); I48.20 Chronic atrial fibrillation, unspecified; I50.22 Chronic systolic (congestive) heart failure; N17.8 Other acute kidney failure; N99.0 Postprocedural (acute) (chronic) kidney failure; K57.90 Diverticulosis of intestine, part unspecified, without perforation or abscess without bleeding; I11.0 Hypertensive heart disease with heart failure; I25.10 Atherosclerotic heart disease of native coronary artery without angina pectoris; M47.816 Spondylosis without myelopathy or radiculopathy, lumbar region; E66.9 Obesity, unspecified; E87.5 Hyperkalemia; D69.59 Other secondary thrombocytopenia; R73.03 Prediabetes; M35.00 Sjogren syndrome, unspecified; I35.0 Nonrheumatic aortic (valve) stenosis; Z68.31 Body mass index [BMI] 31.0-31.9, adult; Z90.49 Acquired absence of other specified parts of digestive tract; Z79.84 Long term (current) use of oral hypoglycemic drugs; Z79.82 Long term (current) use of aspirin
CPT/HCPCS: 36415; 73560; 76775; 80048; 80053; 82607; 82746; 82948; 83735; 85025; 85027; 85055; 86850; 86880; 86900; 86901; 86902; 86922; 97110; 97116; 97161; 97165; 97530; 97535; A9270; C1713; C1776; J0171; J0690; J1100; J1170; J1200; J1885; J2250; J2270; J2405; J2704; J2795; J3010; J7030; J7120; J7512

== ENCOUNTER 2023-08-21 08:09 | Emergency (ER) | payer MEDICARE, SELFPAY ==
[2023-08-21] VITALS (28 sets, daily range): BP systolic 104–129; BP diastolic 56–86; PULSE 80–117; RESP 18–26; TEMP 36.8; O2SAT 94–100
--- NOTE | ~2023-08-21 | CT_ITS ---
EXAMINATION: CT abdomen pelvis w con DATE: 08/21/2023 09:22 INDICATION: Gastrointestinal hemorrhage. Blood in stool. TECHNIQUE: Computed tomography (CT) of the abdomen and pelvis was performed with 100 mL Omnipaque 350 intravenous contrast. Automated exposure control and iterative reconstruction technique were employe d. The dose-length product was 1126.65 mGy-cm. COMPARISON: CT abdomen and pelvis 04/18/2014 FINDINGS: The visualized portions of the lung bases demonstrate mild atelectasis. No pleural effusion . Cardiomegaly is noted. There are coronary artery calcifications. No pericardial effusion. There are pericardial calcifications. There are cysts in the liver measuring up to 6 mm. The gallbladder is co ntracted. Calcifications in the spleen are consistent with old granulomatous disease. The pancreas, r ight adrenal gland, and right kidney are normal. There is a 2.0 cm mass in left adrenal gland measuri ng soft tissue attenuation, stable from 04/18/2014, likely an adenoma. There is a 1.6 cm cyst in left kidney. The prostate is moderately enlarged. There is a left inguinal hernia containing fat. There is diverticulosis of the colon without evidence of diverticulitis. There are changes of appendectomy. T here are no dilated loops of bowel. In the duodenal bulb, there is focal hypoenhancement of the mucos a with adjacent fat stranding, consistent with an ulcer. There is calcified atherosclerosis of the ao rta and many of the other arteries. There are no pathologically enlarged lymph nodes. There is no melissa e intraperitoneal fluid. There is mild thoracic and lumbar spondylosis. IMPRESSION: 1. Duodenal ulcer. Reviewed, dictated and finalized at location A. 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 Duodenal ulcer.
--- NOTE | 2023-08-21 08:17 | ED.GENADULT ---
HPI - General Adult General Chief complaint: Nausea/Vomiting/Diarrhea Stated complaint: N/V/D History of Present Illness HPI narrative: 78-year-old male with history coronary artery disease, atrial fibrillation on Xarelto, and post right knee replacement on presenting to the emergency department for evaluation for coffee-ground emesis and dark stool. Patient reports his Xarelto had been decreased after the procedure but did increase back to his normal dose. Patient noticed that he had some dark stool yesterday but attributed that to dietary. Patient had indigestion last night this morning had onset of coffee-ground emesis. Patient abdominal pain associated with this. Patient does report a prior history of ulcer when he was younger. Patient does have left brown pain and left knee pain postop. Related Data Home Medications Medication Instructions Recorded Confirmed metformin 500 mg tablet,extended 500 mg PO DAILY 11/27/22 08/10/23 release 24 hr rivaroxaban 20 mg tablet (Xarelto) 20 mg PO HS 11/27/22 08/10/23 furosemide 20 mg tablet 20 mg PO DAILY 02/04/23 08/10/23 sacubitril 24 mg-valsartan 26 mg 1 tablet PO BID 02/04/23 08/10/23 tablet (Entresto) aspirin 81 mg tablet,delayed 81 mg PO DAILY 02/10/23 08/10/23 release (Adult Aspirin Regimen) [id number] 300 mcg-K 60 1 tablet PO DAILY 07/23/23 08/10/23 mcg-lycop 600 mcg-lutein 300 mcg tablet (Centrum Silver Men) Allergies Allergy/AdvReac Type Severity Reaction Status Date / Time No Known Allergies Allergy Verified 08/21/23 08:18 Review of Systems Review of Systems: All systems reviewed & are unremarkable except as noted in HPI and below [facility] Past Medical History Medical History Aortic stenosis Atrial fibrillation Bilateral primary osteoarthritis of knee Coronary artery disease Cardiac catheterization November 2022: Moderately enlarged LV with moderate global systolic dysfunction with no regional wall motion abnormalities with an ejection fraction visually estimated 35%. Nonobstructive disease noted in larger vessels as below. Diverticulosis Essential (primary) hypertension Family history of unspecified malignant neoplasm Heart failure with reduced ejection fraction EF 35% on cath in November 2022. Lumbar spondylosis Male erectile disorder Obesity (BMI 30.0-34.9) Prediabetes Sjogrens syndrome Surgical History Surgical History History of cardiac catheterization (11/2022) Moderately enlarged LV with moderate global systolic dysfunction with no regional wall motion abnormalities with an ejection fraction visually estimated 35%. 40 to 50% stenosis in the LAD, 60 to 70% stenosis of circumflex after 2nd obtuse marginal, 40% stenosis and 3rd portion of RCA trunk, and flow limiting lesions in small, distal vessels which did not require intervention. Mild aortic valve stenosis noted. History of cardiac radiofrequency ablation History of laparoscopic appendectomy History of meniscectomy of right knee (~10/13/19) Partial Lateral & Medial History of total right knee replacement (TKR) Family History Family History Mother Family history of cardiovascular disease Hypertension Father Family history of lung cancer Sibling Cancer Heart disease Other Family history of elevated blood lipids Family history of pancreatic cancer Social History Social History (Updated 08/11/23 @ 19:35 by Celia Bolaños PA-C) Social History: Surrogate medical decision maker: Marta Angeles (spouse) and Dominique Herring (daughter). Code status: Full code. Smoking status: Never smoker Alcohol intake: current Drinks per week: 12 Alcohol use details: 1-2 per day. Substance use: current Substance use type: does not use Do You Feel Safe in your Home?: Yes Lack of Transpo
--- NOTE | 2023-08-21 08:18 | ECG_ITS ---
Measurements Intervals [place] Rate: 84 P: [place]: 0 QRS: -30 QRSD: 81 T: 134 QT: 334 QTc: 395 Interpretive Statements ATRIAL FIBRILLATION LOW QRS VOLTAGE IN PRECORDIAL LEADS [QRS DEFLECTION < 1.0 mV IN CHEST LEADS] POSSIBLE ANTERIOR MYOCARDIAL INFARCTION , PROBABLY OLD [30 ms Q WAVE IN V3/V4, OR R < 0.2 mV IN V4] INFERIOR MYOCARDIAL INFARCTION , PROBABLY OLD [40+ ms Q WAVE AND/OR ST/T ABNORMALITY IN II/aVF] COMPARED TO ECG 11/15/2022 14:39:30 NO SIGNIFICANT CHANGES Electronically Signed On 08-22-2023 14:30:39 FREELANCE ART DIRECTOR by Rehana Graham M.D.
[2023-08-21 08:31] LABS: Basophils Absolute Auto 0.1 K/mm3 (0.0-0.1); Basophils Percent Auto 0.6 % (0.2-1.2); Eosinophils Absolute Auto 0.1 K/mm3 (0-0.3); Eosinophils Percent Auto 0.4 % (0-4.4); Hematocrit 31.5 % (42.0-52.0); Immature Granulocyte Absolute 0.09 K/mm3 (0.00-0.031); Immature Granulocyte Percent A 0.7 % (0-0.5); Lymphocytes Absolute Auto 1.08 K/mm3 (0.9-3.2); Lymphocytes Percent Auto 8.9 % (18.3-44.2); Mean Corpuscular HGB Conc 31.7 g/dl (32-36); Mean Corpuscular Hemoglobin 31.4 pg (26-34); Mean Corpuscular Volume 99.1 fl (80-100); Mean Platelet Volume 10.4 fl (7.4-10.4); Monocytes Absolute Auto 0.9 K/mm3 (0.1-0.6); Monocytes Percent Auto 7.6 % (2.6-8.5); Neutrophils Percent Auto 81.8 % (45.5-73.1); Platelet Count Result 251 k/mm3 (150-375); Red Blood Count 3.18 M/mm3 (4.6-6.20); Red Cell Distribution Width 12.9 % (11.5-14.5); White Blood Count 12.2 K/mm3 (4.5-10.0)
[2023-08-21] MEDS: ONDANSETRON INJ 4 MG/2 ML VIAL IV PUSH (08:32)
[2023-08-21] MEDS: SODIUM CHLORIDE 0.9% IV 1,000 ML 999 ML IV CONT (08:34)
[2023-08-21] MEDS: PANTOPRAZOLE SODIUM IV 40 MG VIAL 80 MG IV PUSH (08:35)
[2023-08-21 08:42] LABS: Alanine Aminotransferase 25 U/L (6-50); Albumin Level 3.3 g/dL (3.5-5.1); Alkaline Phosphatase 45 U/L (38-126); Anion Gap 6 mmol/L (8-16); Aspartate Amino Transferase 24 U/L (17-59); Bilirubin,Total 0.6 mg/dL (0.2-1.3); Blood Urea Nitrogen 51 mg/dL (9-20); Carbon Dioxide 27 mmol/L (22-30); Chloride 102 mmol/L (98-107); Estimated CRCL calculation 51 ml/min; Estimated Glomerular Filt Rate 58; Glucose 110 mg/dL (65-110); Sodium 135 mmol/L (137-145)
[2023-08-21] MEDS: PANTOPRAZOLE SODIUM IV 80 MG in SODIUM CHLORIDE 0.9% IV 500 ML 50 MG IV CONT (08:55)
[2023-08-21 09:20] LABS: Appearance Urine Clear (Clear); Bacteria Urine None Seen /hpf; Bilirubin Urine Negative (Negative); Blood Urine Negative (Negative); Color Urine Yellow (Yellow); Glucose Urine UA Negative (Negative); Hyaline Casts Urine Present /lpf; Ketones Urine Negative (Negative); Leukocyte Esterase Ur Negative LEU/UL (Negative); Need Manual Microscopic Reviewed; Nitrate Urine Negative (Negative); Protein Urine Trace mg/dL (Negative); RBC Urine 0-2 /hpf (0-2); Specific Grav Ur 1.022 (1.001-1.035); Squamous Epithelial Cell Urine None seen /hpf (Few); WBC Urine 0-5 /hpf
[2023-08-21 09:26] LABS: Add Urine Microscopic? YES
[2023-08-21 13:24] LABS: Hematocrit 28.6 % (42.0-52.0)
--- NOTE | 2023-08-21 14:46 | PC.NURSE ---
Pt transferred to [facility] with IV Protonix running.
== END 2023-08-21 15:00 | disposition short-term general hospital (02) ==
PROVIDERS: Emergency Provider Emergency Medicine; PCP Family Medicine
DX: K26.0 Acute duodenal ulcer with hemorrhage (principal); I48.91 Unspecified atrial fibrillation; I25.10 Atherosclerotic heart disease of native coronary artery without angina pectoris; I11.0 Hypertensive heart disease with heart failure; I50.9 Heart failure, unspecified; M35.00 Sjogren syndrome, unspecified; R73.03 Prediabetes; Z79.84 Long term (current) use of oral hypoglycemic drugs; Z79.01 Long term (current) use of anticoagulants; Z79.82 Long term (current) use of aspirin
CPT/HCPCS: 36415; 74177; 80053; 81001; 85014; 85018; 85025; 86850; 86880; 86900; 86901; 93005; 96365; 96366; 96375; 99285; C9113; J2405; J7030; J7040; Q9967

== ENCOUNTER 2023-09-01 10:24 | Outpatient (CLI) | payer MEDICARE, SELFPAY ==
--- NOTE | ~2023-09-01 | XR_ITS ---
Right Knee Technique: AP, lateral, and sunrise views were obtained. Clinical History: Status post knee arthroplasty Findings: No fracture or dislocation is seen. Right knee arthroscopy in place, without evidence of willis rdware complication.. Soft tissues are unremarkable. No joint effusion is seen. Impression: No acute abnormality. Right knee arthroplasty in place. Reviewed, dictated and finalized at location M. RANCH HAND Impression: No acute abnormality. Right knee arthroplasty in place.
== END 2023-09-01 10:25 | disposition home or self-care (01) ==
PROVIDERS: PCP Family Medicine; Visit Provider Orthopaedic Surgery
DX: Z96.651 Presence of right artificial knee joint (principal)
CPT/HCPCS: 73564

== ENCOUNTER 2023-09-03 11:01 | Outpatient (CLI) | payer MEDICARE, SELFPAY ==
[2023-09-03 11:22] LABS: Hematocrit 29.5 % (42.0-52.0); Hemoglobin 8.9 g/dL (14.0-18.0)
[2023-09-03 11:30] LABS: Anion Gap 6 mmol/L (8-16); Blood Urea Nitrogen 15 mg/dL (9-20); Calcium 8.9 mg/dL (8.4-10.2); Carbon Dioxide 31 mmol/L (22-30); Chloride 103 mmol/L (98-107); Estimated Glomerular Filt Rate > 60; Glucose 91 mg/dL (65-110); Potassium 4.2 mmol/L (3.4-5.0); Sodium 140 mmol/L (137-145)
== END 2023-09-03 11:02 | disposition home or self-care (01) ==
LOC: ANHLAB 11:03
PROVIDERS: PCP Family Medicine; Visit Provider Family Medicine
DX: N99.89 Other postprocedural complications and disorders of genitourinary system (principal); K92.2 Gastrointestinal hemorrhage, unspecified
CPT/HCPCS: 36415; 80048; 85014; 85018

== ENCOUNTER 2023-09-07 10:19 | Outpatient (RCR) | payer MEDICARE, SELFPAY ==
--- NOTE | 2023-09-07 12:22 | OPREHPOC ---
Outpatient Therapy Plan of Care This is a Multidisciplinary Plan of Care that may contain components documented by all disciplines (PT, OT, and ST.) PT Problem 1 PT Problem #1 Knowledge Deficit PT Goal 1 Goal The patient will be independent in home exercise program to continue after discharge from skilled PT. Target Visit 12 PT Problem 2 PT Problem #2 Pain PT Goal 1 Goal The patient will report no greater than 3/10 right knee pain with community ambulation. Target Visit 12 PT Problem 3 PT Problem #3 Impaired Range of Motion PT Goal 1 Goal The patient will demonstrate 0-120 degrees of right knee AROM to normalize gait. Target Visit 12 PT Problem 4 PT Problem #4 Impaired Functional Mobil PT Goal 1 Goal The patient will demonstrate 30% or less self perceived disability per the LEFS. Target Visit 12 PT Problem 5 PT Problem #5 Impaired Gait PT Goal 1 Goal The patient will ambulate 1,200 feet during the 6 minute walk test with good gait mechanics to return to community ambulation. Target Visit 12
--- NOTE | 2023-09-07 12:23 | PTOPEVAL1 ---
Assessment and note entered by Mine Taylor, PT Evaluation Information Assessment Status Evaluation Diagnosis s/p R TKA Onset 08/10/23 Subjective Information Clifton Angeles reports he had a right knee replacement on 08/10/23. He was in the hospital for 2 days because he was having kidney trouble. He then went home but had to go back to the hospital on 08/21/23. He then spent 5 days at [facility] due to a bleeding ulcer. He has been performing home exercises since he went home. He is noting difficulty bending the right knee, walking, and going up and down stairs. Reported Pain Level Pain Score 5: Self Report Assessment PT Clinical Summary Clifton Angeles is 4 weeks s/p right total knee arthroplasty. He has difficulty with walking, bending the right knee, and going up and down stairs. He objectively demonstrates decreased right knee active and passive ROM, decreased bilateral knee and hip strength, impaired gait, impaired balance, and decreased functional abilities. He will benefit from skilled PT to address these limitations. Plan of Care Interventions Electrical Stimulation,Gait Training,Hot Pack/Cold Pack,Intermittent Compression,Manual Therapy, Neuro Re-education,Patient/Caregiver Educati, Therapeutic Activities,Therapeutic Exercise PT Services Indicated Yes Treatment Frequency and 3 times a week for 12 visits Duration These treatments will address the objective and functional deficits as defined above. The patient will be advanced safely and appropriately in order for the patient to progress towards his/her prior level of function. Additional exercises will be introduced and as well as a comprehensive home exercise program upon discharge, if needed, ?to ensure carryover of functional gains achieved in the clinic. This treatment plan has been reviewed and agreement upon by the patient.
--- NOTE | 2023-09-27 17:05 | PTOPPROG ---
[facility] Information Assessment Status Progress Diagnosis s/p R TKA Onset 08/10/23 Subjective Information Pt. reports that he is still experiencing some pain. He reports that he still has a lot of swelling and has pain with attempting to bend the knee. He reports that his walking is more limited due to developed left knee pain. He reports that right knee is feeling better than the left knee. He is no longer using his cane or walker and states that he is hopeful to return to driving soon. Assessment PT Clinical Summary Mr. Angeles has demonstrated gradual improvements in knee joint active ROM. He remains limited and note continued edema that may be also be limiting right knee mobility. Despite the improvements in strength, gait and ROM, continued deficits remain, making independent IADL's difficult. Recommend continued skilled PT to continue to advance these areas to allow pt. to return to community activities without limitation. Plan of Care Interventions Electrical Stimulation,Gait Training,Hot Pack/Cold Pack,Manual Therapy,Neuro Re-education,Paraffin Bath,Patient/Caregiver Educati,Therapeutic Activities,Therapeutic Exercise PT Services Indicated Yes Treatment Frequency and 2x/week x 8 visits Duration These treatments will address the objective and functional deficits as defined above. The patient will be advanced safely and appropriately in order for the patient to progress towards his/her prior level of function. Additional exercises will be introduced and as well as a comprehensive home exercise program upon discharge, if needed, ?to ensure carryover of functional gains achieved in the clinic. This treatment plan has been reviewed and agreement upon by the patient.
--- NOTE | 2023-10-25 14:50 | PTOPPROG ---
Assessment and note entered by Asim Yusuf Evaluation Information Assessment Status Progress Diagnosis s/p R TKA Onset 08/10/23 Subjective Information Pt. reports he is still discouraged due to pain. He reports that he is exercising at home, but questions if he is exercising hard enough. He reports after riding the bike last treatment in noticed increased pain. He states that following treatment today he has no pain compared to 6/10 pain pre-Rx. He reports that his goal remains to improve his mobility and decrease his pain. Assessment PT Clinical Summary Pt. has attended a total of 18 treatment sessions. In this time he has demonstrated progress in regards to strength, gait and right knee ROM. He continues to present with edema, limiting mobility progress. Pt. continues to have trouble with pain, and have emphasized on several occasions that the pt. needs to be more aggressive with exercise at home in order to improve his pain tolerance. He progresses well today as treatment utilized more aggressive mobilization techniques. At this time recommend continued skilled PT focusing on strength, continued mobility mandaeism and continuing to improve gait in order to optimize pt. ability to complete IADL's. Plan of Care Interventions Gait Training,Hot Pack/Cold Pack,Intermittent Compression,Neuro Re-education,Patient/Caregiver Educati,Therapeutic Activities,Therapeutic Exercise PT Services Indicated Yes Treatment Frequency and 2x/week x 6 visits Duration These treatments will address the objective and functional deficits as defined above. The patient will be advanced safely and appropriately in order for the patient to progress towards his/her prior level of function. Additional exercises will be introduced and as well as a comprehensive home exercise program upon discharge, if needed, ?to ensure carryover of functional gains achieved in the clinic. This treatment plan has been reviewed and agreement upon by the patient.
--- NOTE | 2023-11-04 08:41 | PCPTNOTE ---
Patient cancelled session today due to illness.
--- NOTE | 2023-11-17 10:03 | OPREHPOC ---
Outpatient Therapy Plan of Care This is a Multidisciplinary Plan of Care that may contain components documented by all disciplines (PT, OT, and ST.) PT Problem 1 PT Problem #1 Knowledge Deficit PT Goal 1 Goal The patient will be independent in home exercise program to continue after discharge from skilled PT. Target Visit 12 Progress Met PT Problem 2 PT Problem #2 Pain PT Goal 1 Goal The patient will report no greater than 3/10 right knee pain with community ambulation. Target Visit 29 Progress Not Met PT Problem 3 PT Problem #3 Impaired Range of Motion PT Goal 1 Goal The patient will demonstrate 0-120 degrees of right knee AROM to normalize gait. Target Visit 29 Progress Not Met PT Problem 4 PT Problem #4 Impaired Functional Mobil PT Goal 1 Goal The patient will demonstrate 30% or less self perceived disability per the LEFS. Patient with kneel to the L knee and get back up with modified independence to improve gardening/ home care performance. Target Visit 29 Progress Partially Met PT Problem 5 PT Problem #5 Impaired Gait PT Goal 1 Goal The patient will ambulate 1,200 feet during the 6 minute walk test with good gait mechanics to return to community ambulation. The patient will ambulate up and down steps with reciprocal pattern with 1 hand rail assist. Target Visit 29 Progress Partially Met
--- NOTE | 2023-11-17 10:03 | PTOPREEVAL ---
Assessment and note entered by JT File, PT Evaluation Information Assessment Status Re-evaluation Diagnosis s/p R TKA Onset 08/10/23 Subjective Information patient reports his knee is warm today. he reports he struggles with tightness in the knee joint, and with pain in the R lower leg. he reports there is a discolored area on the R LE. he reports he has a follow up with the MD on 12/08/23. he reports he has been diligently stretching his knee at home. patient reports he has also been active in the garden and around the house at home lately. Reported Pain Level Pain Score 4: Self Report Assessment PT Clinical Summary mr. lai presents to skilled PT services for his skilled PT visit. he has made progress in rom and gait mechanics, but progress is slow and patient continued to report pain in the R knee. he lacks achievement of goals for rom, ambulation mechanics, ambulation speed, and stair ambulation. the lack of achievement of these goals restricts his return to prior level home care activities, gardening, and social interaction. continue skilled PT is indicated to progress upon patients improvements to achieve all remaining goals and return to his PLOF/quality of life. Plan of Care Interventions Gait Training,Hot Pack/Cold Pack,Intermittent Compression,Neuro Re-education,Patient/Caregiver Educati,Therapeutic Activities,Therapeutic Exercise PT Services Indicated Yes Treatment Frequency and continue skilled PT 2x weekly for 6 more visits Duration These treatments will address the objective and functional deficits as defined above. The patient will be advanced safely and appropriately in order for the patient to progress towards his/her prior level of function. Additional exercises will be introduced and as well as a comprehensive home exercise program upon discharge, if needed, ?to ensure carryover of functional gains achieved in the clinic. This treatment plan has been reviewed and agreement upon by the patient.
== END 2023-12-02 09:56 | disposition still patient (30) ==
LOC: CHSPT 10:19
PROVIDERS: Visit Provider Orthopaedic Surgery
DX: Z47.1 Aftercare following joint replacement surgery (principal); Z96.651 Presence of right artificial knee joint
CPT/HCPCS: 97014; 97016; 97110; 97112; 97140; 97150; 97161; 97530; G0283

== ENCOUNTER 2023-09-29 09:38 | Outpatient (CLI) | payer MEDICARE, SELFPAY ==
--- NOTE | ~2023-09-29 | XR_ITS ---
Right Knee Technique: AP, lateral, and sunrise views were obtained. Clinical History: Prosthesis Findings: No fracture or dislocation is seen. Right knee arthroplasty unchanged. Soft tissues are unr emarkable. No joint effusion is seen. Impression: No acute abnormality. Stable right knee arthroplasty. Reviewed, dictated and finalized at location . 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 Stable right knee arthroplasty.
== END 2023-09-29 09:39 | disposition home or self-care (01) ==
PROVIDERS: PCP Family Medicine; Visit Provider Orthopaedic Surgery
DX: Z47.89 Encounter for other orthopedic aftercare (principal)
CPT/HCPCS: 73564

== ENCOUNTER 2023-11-25 08:45 | Outpatient (CLI) | payer MEDICARE, SELFPAY ==
[2023-11-25 09:04] LABS: Hematocrit 37.6 % (37.0-46.0); Hemoglobin 11.1 g/dL (12.4-15.3); Mean Corpuscular HGB Conc 29.5 g/dL (32-36); Mean Corpuscular Volume 84.7 fL (78.0-102.0); Mean Platelet Volume 10.5 fl (8.7-11.0); Platelet Count Result 188 K/mm3 (150-420); Red Blood Count 4.44 M/mm3 (4.70-6.10); Red Cell Distribution Width 16.4 % (11.6-14.4); White Blood Count 4.9 K/mm3 (4.8-10.8)
[2023-11-25 09:22] LABS: Hemoglobin A1C 6.4 % (<5.7)
[2023-11-25 10:10] LABS: Alanine Aminotransferase 18 U/L (16-63); Albumin Level 3.6 g/dL (3.4-5.0); Alkaline Phosphatase 46 U/L (46-116); Anion Gap 8 mmol/L (4-12); Aspartate Amino Transferase 15 U/L (15-37); Bilirubin,Total 0.5 mg/dL (0.00-1.00); Blood Urea Nitrogen 14 mg/dL (7-18); Calcium 9.1 mg/dL (8.5-10.1); Carbon Dioxide 30 mmol/L (21-32); Chloride 105 mmol/L (98-108); Cholesterol 139 mg/dL (0-200); Estimated Glomerular Filt Rate > 60; Glucose 96 mg/dL (70-99); HDL Direct 44 mg/dL (40-60); LDL Cholesterol Calculated 82 mg/dL (<130); Osmolality Calculated 296 mOsm/kg (285-295); Potassium 4.6 mmol/L (3.5-5.1); Sodium 143 mmol/L (136-145); Triglycerides 67 mg/dL (0-150)
== END 2023-11-25 08:46 | disposition home or self-care (01) ==
LOC: CHSLAB 08:50
PROVIDERS: PCP Family Medicine; Visit Provider Family Medicine
DX: K92.2 Gastrointestinal hemorrhage, unspecified (principal); E87.5 Hyperkalemia; R73.03 Prediabetes; I25.10 Atherosclerotic heart disease of native coronary artery without angina pectoris
CPT/HCPCS: 36415; 80053; 80061; 83036; 85027

== ENCOUNTER 2023-12-07 09:58 | Outpatient (RCR) | payer MEDICARE, SELFPAY ==
--- NOTE | 2023-12-07 12:11 | OPREHPOC ---
Outpatient Therapy Plan of Care This is a Multidisciplinary Plan of Care that may contain components documented by all disciplines (PT, OT, and ST.) PT Problem 1 PT Problem #1 Knowledge Deficit PT Goal 1 Goal The patient will be independent in home exercise program to continue after discharge from skilled PT. Target Visit 12 Progress Met PT Problem 2 PT Problem #2 Pain PT Goal 1 Goal The patient will report no greater than 3/10 right knee pain with community ambulation. Target Visit 29 Progress Partially Met PT Problem 3 PT Problem #3 Impaired Range of Motion PT Goal 1 Goal The patient will demonstrate 0-120 degrees of right knee AROM to normalize gait. Target Visit 29 Progress Partially Met PT Problem 4 PT Problem #4 Impaired Functional Mobil PT Goal 1 Goal The patient will demonstrate 30% or less self perceived disability per the LEFS. Patient with kneel to the L knee and get back up with modified independence to improve gardening/ home care performance. Target Visit 29 Progress Met PT Problem 5 PT Problem #5 Impaired Gait PT Goal 1 Goal The patient will ambulate 1,200 feet during the 6 minute walk test with good gait mechanics to return to community ambulation. The patient will ambulate up and down steps with reciprocal pattern with 1 hand rail assist. Target Visit 29 Progress Partially Met
--- NOTE | 2023-12-07 12:11 | PTOPPROG ---
Assessment and note entered by Mine Taylor, PT Evaluation Information Assessment Status Progress Diagnosis s/p R TKA Onset 08/10/23 Subjective Information Clifton Angeles reports that his right knee is getting better overall. He has been able to return to performing yard work and mowing without difficulty. He does still have discomfort when going down stairs. He notes more discomfort with his lower leg where he has been having some drainage. He has seen his primary care doctor regarding the lower leg drainage. Assessment PT Clinical Summary Reggie Angeles has completed 29 skilled PT visits following a right total knee arthroplasty performed on 08/10/23. He is reporting the ability to perform all daily activities and even yard work consisting of mowing without difficulty. He does still note mild difficulty and discomfort with descending stairs. He demonstrates improved right knee active and passive ROM, improved gait mechanics, improved stair negotiation, and improved strength. He is able to ascend/descend a flight of 11 stairs reciprocally with with bilateral hand rails. He also was able to kneel down onto the right knee onto a foam pad. He does still have mild active ROM deficits and decreased balance. He will see his physician on 12/08/23 and reports he is having eye surgery on 12/09/23. He would like to be discharged from skilled PT. Plan of Care Interventions Gait Training,Hot Pack/Cold Pack,Intermittent Compression,Neuro Re-education,Patient/Caregiver Educati,Therapeutic Activities,Therapeutic Exercise PT Services Indicated Yes Treatment Frequency and RTD on 12/08/23, discharge unless MD orders Duration additional PT These treatments will address the objective and functional deficits as defined above. The patient will be advanced safely and appropriately in order for the patient to progress towards his/her prior level of function. Additional exercises will be introduced and as well as a comprehensive home exercise program upon discharge, if needed, ?to ensure carryover of functional gains achieved in the clinic. This treatment plan has been reviewed and agreement upon by the patient.
== END 2023-12-07 20:00 | disposition home or self-care (01) ==
LOC: CHSPT 09:58
PROVIDERS: Visit Provider Orthopaedic Surgery
DX: Z47.1 Aftercare following joint replacement surgery (principal); Z96.651 Presence of right artificial knee joint
CPT/HCPCS: 97110; 97112

== ENCOUNTER 2024-01-10 07:08 | Outpatient (CLI) | payer MEDICARE, SELFPAY ==
[2024-01-10 22:57] LABS: Anion Gap 8 mmol/L (4-12); Blood Urea Nitrogen 16 mg/dL (7-18); Calcium 8.8 mg/dL (8.5-10.1); Carbon Dioxide 31 mmol/L (21-32); Chloride 103 mmol/L (98-108); Estimated Glomerular Filt Rate 60; Glucose 92 mg/dL (70-99); Osmolality Calculated 295 mOsm/kg (285-295); Potassium 4.5 mmol/L (3.5-5.1); Sodium 142 mmol/L (136-145)
== END 2024-01-10 07:09 | disposition home or self-care (01) ==
LOC: CHSLAB 07:10
PROVIDERS: PCP Family Medicine; Visit Provider Specialist
DX: I50.22 Chronic systolic (congestive) heart failure (principal)
CPT/HCPCS: 36415; 80048

== ENCOUNTER 2024-03-17 14:22 | Inpatient (IN) | payer MEDICARE, SELFPAY ==
[2024-03-17] VITALS (7 sets, daily range): BP systolic 126–147; BP diastolic 84–91; PULSE 68–94; RESP 20; TEMP 37.1; O2SAT 97–98; BMI 32.1
--- NOTE | 2024-03-17 | ECHO_ITS ---
Patient Info Name: Reggie Angeles Age: 78 years : 1945 Gender: Male Ht: 68 in Wt: 211 lbs BSA: 2.17 m2 HR: 84 bpm BP: 147 / 84 mmHg Heart Rhythm: Sinus Rhythm Technical Quality: Fair Exam Date: 03/17/2024 3:52 PM Exam Location: Echo Lab Patient Status: Inpatient Admit Date: 03/17/2024 Staff Ordering Physician: Rehana Graham MD (marissa/niyah) Industrial Service Technician: Karla Foster RDCS Attending Provider: Alba Wilson MD Referring Physician: Asim Valdez MD; Exam Type: CA echo dop color flow w con Study Info Indications - Heart failure Complete two-dimensional, color flow and Doppler transthoracic echocardiogram is performed with contrast to opacify the left ventricle and to improve the deliniation of the left ventricle endocardial borders. Contrast/Agitated Saline Contrast/Ag. Saline: Definity Amount: 3.00 ml Administered By: Karla Foster RDCS Existing IV Access: Yes IV Access Condition: patent with no signs of infiltration Summary 1. Left ventricular chamber dimension is mildly enlarged. 2. Left ventricular systolic function is mildly reduced, estimated at 40-45%. 3. There is no increased left ventricular wall thickness. 4. Left atrial chamber dimension is mildly enlarged. 5. There is moderate to severe aortic valve stenosis with a peak velocity of 274.25 cm/s, mean gradient of 19 mmHg, and aortic valve area of 0.77 cm2. 6. There is mild mitral valve regurgitation. 7. Moderate pulmonary hypertension, estimated pulmonary arterial systolic pressure is 55 mmHg. 8. Dilated inferior vena cava with <50% collapse upon inspiration consistent with elevated right atrial pressure, 10 mmHg. Left Ventricle Left ventricular chamber dimension is mildly enlarged. Left ventricular systolic function is mildly reduced, estimated at 40-45%. There is no increased left ventricular wall thickness. Right Ventricle Right ventricular chamber dimension is normal. Right ventricular systolic function is normal. Left Atria Left atrial chamber dimension is mildly enlarged. Right Atria Right atrial chamber dimension is normal. Aortic Valve The aortic valve is trileaflet. There is severe aortic valve sclerosis. There is no aortic valve regurgitation. There is moderate to severe aortic valve stenosis with a peak velocity of 274.25 cm/s, mean gradient of 19 mmHg, and aortic valve area of 0.77 cm2. Pulmonic Valve The pulmonic valve is not well visualized. There is no pulmonic valve stenosis. There is no pulmonic regurgitation. Mitral Valve There is no mitral valve stenosis. There is mild mitral valve regurgitation. Tricuspid Valve The tricuspid valve leaflets are normal. There is mild tricuspid valve stenosis. There is mild tricuspid valve regurgitation. Moderate pulmonary hypertension, estimated pulmonary arterial systolic pressure is 55 mmHg. Pericardium/Pleural The pericardium appears normal. There is no pericardial effusion. Inferior Vena Cava Dilated inferior vena cava with <50% collapse upon inspiration consistent with elevated right atrial pressure, 10 mmHg. Aorta The aortic root size at the sinus of Valsalva is normal. The prox ascending aorta size is normal. Left Ventricular Outflow Tract Name Value Normal LVOT 2D LVOT Diamete
--- NOTE | ~2024-03-17 | XR_ITS ---
EXAMINATION: XR chest 1V portable Exam Date/Time: 03/17/2024 14:50 CDT HISTORY: shortness of breath Comparison: 11/15/2022. RESULT: Lines, tubes, and devices: None. Lungs and pleura: Clear. Cardiomediastinal silhouette: Stable. Other: No acute osseous or upper abdominal finding. IMPRESSION: No acute cardiopulmonary process. Reviewed, dictated and finalized at location K.
--- NOTE | 2024-03-17 14:23 | ECG_ITS ---
Test Date: 2024-03-17 14:37:46 Measurements Intervals [place] Rate: 77 P: 0 CA: 0 QRS: 88 QRSD: 97 T: -55 QT: 394 QTc: 447 Interpretive Statements ATRIAL FIBRILLATION VENTRICULAR PREMATURE COMPLEX ANTEROSEPTAL INFARCT, AGE INDETERMINATE BORDERLINE ST-T WAVE ABNORMALITY- INFERIOR LEADS BASELINE ARTIFACT- I, II, III, AVR, AVL, AVF, V1-V3 ABNORMAL ECG No previous ECG available for comparison Electronically Signed On 03-18-2024 10:43:12 CDT by Harry Fay D.O.
--- NOTE | 2024-03-17 14:35 | ADMGEN ---
This patient, Reggie Angeles, was admitted to IMU Room 210-01. Patient/family oriented to hospital policies and general routines including ID bracelet, bed and alarms, visiting hours, pain management, procedures, bathroom and other care routines, personal items, smoking policy, room service/diet, and visiting hours. Information on how to activate the Rapid Response Team has been discussed. Patient/Family are encouraged to report perceived risks to care and to ask questions if they do not understand what they are told or what they should do.
--- NOTE | 2024-03-17 14:37 | PM.CNCAR ---
Assessment and Plan Assessment and plan (1) Acute on chronic heart failure with preserved ejection fraction (HFpEF, >= 50%): Code(s): I50.33 - Acute on chronic diastolic (congestive) heart failure Status: Acute Assessment and Plan: Baseline weight is ~200lbs. He currently weighs 211lbs on admission today. LVEF 35% in November 2022; improved to 50-55% per TTE August 2023. Will obtain repeat TTE to re-evaluate LVEF. Check labs - BMP, NT pro BNP. If BMP okay, initiate Lasix 40mg IV BID. Please obtain daily weights, standing if possible. Please monitor strict I/Os. Heart failure GDMT: Continue Toprol 100mg once daily. Continue Spironolactone 25mg once daily. Continue Entresto 49/51mg BID. Will start Jardiance 10mg once daily. (2) Aortic stenosis, moderate: Code(s): I35.0 - Nonrheumatic aortic (valve) stenosis Status: Acute Assessment and Plan: Appears to be moderate on TTE August 2023. Scheduled for HARIKA on 03/20 for further evaluation. Patient to be NPO at midnight on 03/20 in preparation for HARIKA. (3) Coronary artery disease: Code(s): I25.10 - Atherosclerotic heart disease of [place] coronary artery without angina pectoris Status: Acute Assessment and Plan: Cardiac catheterization in November 2022 showed: 1. Right coronary dominant circulation with coronary artery disease including non flow-limiting lesions in the proximal and mid LAD. 2. Significant flow-limiting lesions are seen in a small 2nd diagonal branch of the LAD as well as the medium-sized PL branches as described above. PCI of these lesions is not indicated as the patient has no angina and these are small distal vessels. Continue ASA 81mg once daily. Not currently on a statin. Will initiate high intensity statin. Check lipid panel. (4) Atrial fibrillation: Code(s): I48.91 - Unspecified atrial fibrillation Status: Acute Assessment and Plan: Rate controlled. Continue Toprol and Eliquis. (5) Essential hypertension: Code(s): I10 - Essential (primary) hypertension Status: Acute Assessment and Plan: Stable. Continue Toprol, Spironolactone, Entresto. 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 (7) Acute kidney injury: Code(s): N17.9 - Acute kidney failure, unspecified Status: Acute Assessment and Plan: Suspect cardiorenal from volume overload. Anticipate that it will improve with diuresis. Closely monitor renal function with diuresis. Plan Recommendations and plan discussed with Hospitalist. History of Present Illness History of Present Illness Consult date/time: 03/17/24 14:37 Requesting physician: Alba Wilson MD Consult reason: congestive heart failure Reason For Visit: heart failure Narrative: Clifton is a 78 year old male with heart failure with improved LVEF (LVEF 35% in November 2022; improved to 50-55% per TTE August 2023), aortic stenosis (probable moderate based on lastest TTE 08/2023), coronary artery disease per cardiac catheterization November 2022, atrial fibrillation, GI bleeding from a duodenal ulcer in 2022. Clifton follows with Dr. Valdez. He is scheduled to undergo HARIKA as an outpatient on 03/[address] Valdez for further evaluation of aortic stenosis. He has been having dyspnea on exertion, orthopnea, lower extremity edema. He has not been able to sleep due to orthopnea. Does report feeling intermittent chest pain today as well. Review of Systems Review of Systems: All systems reviewed & are unremarkable except as noted in HPI and below (HPI) [facility] Past Medical History Medical History (Updated 03/17/24 @ 15:21 by Rehana Graham MD) Aortic stenosis Atrial fibrillation Bilateral primary osteoarthritis of knee Coronary artery disease Cardiac catheterization November 2022: Moderately enlarged LV with modera
[2024-03-17 15:15] LABS: Basophils Percent Auto 0.7 % (0.2-1.2); Eosinophils Absolute Auto 0.1 K/mm3 (0-0.3); Eosinophils Percent Auto 2.4 % (0-4.4); Hematocrit 37.7 % (42.0-52.0); Hemoglobin 11.3 g/dL (14.0-18.0); Immature Granulocyte Absolute 0.01 K/mm3 (0.00-0.031); Immature Granulocyte Percent A 0.2 % (0-0.5); Lymphocytes Absolute Auto 1.16 K/mm3 (0.9-3.2); Lymphocytes Percent Auto 20.2 % (18.3-44.2); Mean Corpuscular Hemoglobin 25.6 pg (26-34); Mean Corpuscular Volume 85.5 fl (80-100); Mean Platelet Volume 11.5 fl (7.4-10.4); Monocytes Absolute Auto 0.6 K/mm3 (0.1-0.6); Neutrophils Absolute Auto 3.8 K/mm3 (1.3-6.7); Neutrophils Percent Auto 65.5 % (45.5-73.1); Platelet Count Result 175 k/mm3 (150-375); Red Blood Count 4.41 M/mm3 (4.6-6.20); Red Cell Distribution Width 17.4 % (11.5-14.5); White Blood Count 5.8 K/mm3 (4.5-10.0)
[2024-03-17 15:29] LABS: Anion Gap 10 mmol/L (4-12); Blood Urea Nitrogen 25 mg/dL (9-20); Calcium 9.2 mg/dL (8.4-10.2); Carbon Dioxide 28 mmol/L (22-30); Chloride 100 mmol/L (98-107); Estimated CRCL calculation 43 ml/min; Estimated Glomerular Filt Rate 49; Glucose 120 mg/dL (65-110); Potassium 4.5 mmol/L (3.4-5.0); Sodium 138 mmol/L (137-145)
[2024-03-17 15:36] LABS: Iron 53 ug/dL (49-181)
[2024-03-17 15:38] LABS: NT Pro B Type Natriuretic Pept 6360 pg/mL (19.9-100)
--- NOTE | 2024-03-17 15:47 | PM.IMHP ---
H&P: HPI History of Present Illness Date/Time: 03/17/24 15:47 Chief Complaint: Shortness of breath Narrative: This is a very pleasant 78-year-old male with a history of heart failure with improved LVEF (LVEF 35% in November 2022; improved to 50-55% per TTE August 2023), aortic stenosis (probable moderate based on lastest TTE 08/2023), coronary artery disease per cardiac catheterization November 2022, atrial fibrillation on eliquis, GI bleeding from a duodenal ulcer s/p cauterization x3 in 2022 while on prednisone and xarelto s/p right TKA on 08/10/23 (w/ concurrent FROILAN, resolved), osteoarthritis, diverticulosis, hypertension, obesity, GERD, pre diabetes. Gene follows with Dr. Valdez of [facility] group. He is scheduled to undergo HARIKA as an outpatient on 03/[address] Valdez for further evaluation of aortic stenosis. He has been having dyspnea on exertion, orthopnea, lower extremity edema for the past 2 weeks which has progressively worsened. He has not slept well due to this. Reports a baseline weight around 200 lb. He is now 211 lb. Reports increased lower extremity edema as well. They do not use much salt at home. Not had a cough in fact he feels he wants a cough but has a tough time doing so. Dr. Valdez recently increased his lasix to 40mg po qday but to no avail. The patient is directly admitted to [facility] IMU on 03/17/24 for acute decompensated heart failure. History is taken from the patient, his Marta Angeles and his daughter Dominique Herring. Review of Systems Review of Systems: All systems reviewed & are unremarkable except as noted in HPI and below (Subjective) [facility] Past Medical History Medical History (Updated 03/17/24 @ 15:59 by Alba Wilson MD) Aortic stenosis Atrial fibrillation Bilateral primary osteoarthritis of knee Coronary artery disease Cardiac catheterization November 2022: Moderately enlarged LV with moderate global systolic dysfunction with no regional wall motion abnormalities with an ejection fraction visually estimated 35%. Nonobstructive disease noted in larger vessels as below. Diabetes Diverticulosis Essential (primary) hypertension Family history of unspecified malignant neoplasm Heart failure with reduced ejection fraction EF 35% on cath in November 2022. Lumbar spondylosis Male erectile disorder Obesity (BMI 30.0-34.9) Prediabetes Sjogrens syndrome Surgical History Surgical History (Updated 12/22/23 @ 14:11 by Asim Beltran MD) History of cardiac catheterization (11/2022) Moderately enlarged LV with moderate global systolic dysfunction with no regional wall motion abnormalities with an ejection fraction visually estimated 35%. 40 to 50% stenosis in the LAD, 60 to 70% stenosis of circumflex after 2nd obtuse marginal, 40% stenosis and 3rd portion of RCA trunk, and flow limiting lesions in small, distal vessels which did not require intervention. Mild aortic valve stenosis noted. History of cardiac radiofrequency ablation History of laparoscopic appendectomy History of meniscectomy of right knee (~10/13/19) Partial Lateral & Medial History of total right knee replacement (TKR) (~08/10/23) History of vitrectomy Family History Family History Mother Family history of cardiovascular disease Hypertension Father Family history of lung cancer Sibling Cancer Heart disease Other Family history of elevated blood lipids Family history of pancreatic cancer Social History Social History Social History: Surrogate medical decision maker: Marta Karthik (spouse) and Dominique Nima (daughter). Code status: Full code. Smoking status: Never smoker Alcohol intake: never Drinks per week: 12 Alcohol use details: 1-2 per day. Substance use: never Substance use type: does not use Do You Feel Safe in your Home?: Yes Lack of T
[2024-03-17 16:06] LABS: Percent Iron Saturation 11 % (20-50)
--- NOTE | 2024-03-17 16:06 | PCCDE ---
03/17/24: 16:00 pm DM Consult received 15:35. Patient being prepped for echo, is not available. I will reattempt to see patient Wednesday RN aware.
[2024-03-17 16:20] LABS: Influenza A QL RT-PCR Negative (Negative); Influenza B QL RT-PCR Negative (Negative); RSV RNA, RT-PCR Negative (Negative); SARS-CoV-2 RNA PCR Negative (Negative)
[2024-03-17] MEDS: PERFLUTREN LIPID MICROSPHERES 1.5 ML VIAL DILUTED TO 10 ML TOTAL VOLUME IV PUSH (16:23)
[2024-03-17 16:26] LABS: Glucose Point of Care 99 mg/dl (65-105)
[2024-03-17 16:34] LABS: Cholesterol 119 mg/dL (0-200); HDL Direct 30 mg/dL; Triglycerides 96 mg/dL (<150)
[2024-03-17 16:45] LABS: LDL Cholesterol Direct 74 mg/dL
--- NOTE | 2024-03-17 17:15 | PC.NURSE ---
Notified Dr. Wilson of [facility].
--- NOTE | 2024-03-17 17:29 | IVDEFINITY ---
Prior to administration of IV Definity the patient was educated on the risks and benefits of the imaging enhancing agent including potential adverse side effects. The patient verbalized understanding. Allergies were verified. No exclusion criteria were identified and at least one of the following inclusion criteria were met: 1) physician request, 2) patient technically difficult to image (per the [place] [employer] guidelines of two or more segments not discernable within the apical view), or 3) questionable left ventricular function. ?
[2024-03-17] MEDS: ATORVASTATIN 40 MG TABLET 80 MG PO (18:03)
[2024-03-17] MEDS: FUROSEMIDE INJ 40 MG/4 ML VIAL IV PUSH (18:04)
[2024-03-17 18:36] LABS: Appearance Urine Clear (Clear); Bacteria Urine None Seen /hpf; Bilirubin Urine Negative (Negative); Blood Urine Trace (Negative); Color Urine Yellow (Yellow); Glucose Urine UA Negative (Negative); Ketones Urine Trace mg/dL (Negative); Leukocyte Esterase Ur Negative LEU/UL (Negative); Nitrate Urine Negative (Negative); Non Pathogenic Casts 0-2; Protein Urine 2+ mg/dL (Negative); RBC Urine 0-2 /hpf (0-2); Specific Grav Ur 1.014 (1.001-1.035); Squamous Epithelial Cell Urine None Seen /hpf (Few); WBC Urine 0-5 /hpf (0-3); pH Urine 5.5 (5.0-9.0)
[2024-03-17 18:38] LABS: Add Urine Microscopic? YES
[2024-03-17 18:41] LABS: Creatinine Urine 79.4 mg/dL; Urea Random Urine 627 MG/DL
[2024-03-17 19:23] LABS: Eosinophil Urine None Seen % (None Seen); Urine Eos QC 2nd Tech Confirmed
[2024-03-17 20:49] LABS: Glucose Point of Care 136 mg/dl (65-105)
[2024-03-17] MEDS: SACUBITRIL/VALSARTAN 49-51 MG TABLET 1 TABLET PO (21:16)
[2024-03-17] MEDS: APIXABAN 5 MG TABLET PO (21:16)
[2024-03-18] VITALS (16 sets, daily range): BP systolic 106–144; BP diastolic 68–93; PULSE 68–95; RESP 16–28; TEMP 36.6–37.1; O2SAT 95–98
[2024-03-18 04:47] LABS: Hematocrit 37.4 % (42.0-52.0); Hemoglobin 11.4 g/dL (14.0-18.0); Mean Corpuscular HGB Conc 30.5 g/dl (32-36); Mean Corpuscular Hemoglobin 25.4 pg (26-34); Mean Corpuscular Volume 83.3 fl (80-100); Mean Platelet Volume 10.7 fl (7.4-10.4); Platelet Count Result 179 k/mm3 (150-375); Red Blood Count 4.49 M/mm3 (4.6-6.20); Red Cell Distribution Width 17.4 % (11.5-14.5); White Blood Count 5.5 K/mm3 (4.5-10.0)
[2024-03-18 05:15] LABS: Anion Gap 10 mmol/L (4-12); Blood Urea Nitrogen 26 mg/dL (9-20); Calcium 9.1 mg/dL (8.4-10.2); Carbon Dioxide 30 mmol/L (22-30); Chloride 99 mmol/L (98-107); Estimated CRCL calculation 50 ml/min; Estimated Glomerular Filt Rate 58; Glucose 107 mg/dL (65-110); Potassium 3.6 mmol/L (3.4-5.0); Sodium 139 mmol/L (137-145)
[2024-03-18 06:42] LABS: Glucose Point of Care 124 mg/dl (65-105)
[2024-03-18] MEDS: SPIRONOLACTONE 25 MG TABLET PO (08:24)
[2024-03-18] MEDS: PANTOPRAZOLE 40 MG TABLET PO (08:24)
[2024-03-18] MEDS: METOPROLOL SUCCINATE EXT REL 100 MG TABCR PO (08:24)
[2024-03-18] MEDS: SACUBITRIL/VALSARTAN 49-51 MG TABLET 1 TABLET PO ×2 (08:24→20:34)
[2024-03-18] MEDS: ATORVASTATIN 40 MG TABLET 80 MG PO (08:25)
[2024-03-18] MEDS: EMPAGLIFLOZIN 10 MG TABLET PO (08:25)
[2024-03-18] MEDS: ASPIRIN 81 MG ENTERIC TABLET PO (08:25)
[2024-03-18] MEDS: APIXABAN 5 MG TABLET PO ×2 (08:25→20:35)
[2024-03-18] MEDS: FUROSEMIDE INJ 40 MG/4 ML VIAL IV PUSH (08:25)
--- NOTE | 2024-03-18 08:40 | PM.IMPN ---
Progress Note: A&P Assessment and Plan (1) Diabetes: Code(s): E11.9 - Type 2 diabetes mellitus without complications Status: Acute (2) Acute on chronic heart failure with preserved ejection fraction (HFpEF, >= 50%): Code(s): I50.33 - Acute on chronic diastolic (congestive) heart failure Status: Acute (3) manager long term care (current) use of anticoagulants: Code(s): Z79.01 - manager long term care (current) use of anticoagulants Status: Chronic (4) Essential hypertension: Code(s): I10 - Essential (primary) hypertension Status: Acute (5) Aortic stenosis: Code(s): I35.0 - Nonrheumatic aortic (valve) stenosis Status: Acute (6) Status post total right knee replacement: Onset Date: ~08/10/23 Code(s): Z96.651 - Presence of right artificial knee joint Status: Acute (7) Acute kidney injury: Code(s): N17.9 - Acute kidney failure, unspecified Status: Acute (8) Coronary artery disease: Code(s): I25.10 - Atherosclerotic heart disease of [place] coronary artery without angina pectoris Status: Acute (9) Normocytic anemia: Code(s): D64.9 - Anemia, unspecified Status: Acute (10) Unspecified atrial fibrillation: Code(s): I48.91 - Unspecified atrial fibrillation Status: Acute Plan Mr. Angeles a very pleasant 78-year-old male with a history of heart failure with improved LVEF (LVEF 35% in November 2022; improved to 50-55% per TTE August 2023), aortic stenosis (probable moderate based on lastest TTE 08/2023), coronary artery disease per cardiac catheterization November 2022, atrial fibrillation on eliquis, GI bleeding from a duodenal ulcer s/p cauterization x3 in 2022 while on prednisone and xarelto s/p right TKA on 08/10/23 (w/ concurrent FROILAN, resolved), osteoarthritis, diverticulosis, hypertension, obesity, GERD, chronic microcytic anemia, NIDDM, cataracts. Gene follows with Dr. Valdez of [facility] group. He is scheduled to undergo HARIKA as an outpatient on 03/[address] Valdez for further evaluation of aortic stenosis. He has been having dyspnea on exertion, orthopnea, lower extremity edema for the past 2 weeks which has progressively worsened. He has not slept well due to this. Reports a baseline weight around 200 lb. He is now 211 lb. Reports increased lower extremity edema as well. They do not use much salt at home. He has not had a cough, in fact he feels he wants a cough but has a tough time doing so. Dr. Valdez recently increased his lasix to 40mg po qday but to no avail. The patient is directly admitted to [facility] IMU on 03/17/24 for acute decompensated heart failure. History is taken from the patient, his Marta Angeles and his daughter Dominique Herring. # acute decompensated heart failure with preserved ejection fraction -status: Acute on chronic -baseline weight 200 lb, he is 211 lb on admission. He is a direct admission after having progressive shortness of breath and Lasix increased by his primary inspector timers and not having relief. Has lower extremity edema and scant crackles on lung auscultation. BNP 6360. -LVEF 35% in 11/2022, improved to 50-55% per TTE in 08/2023. -quad viral screen negative on admission -cardiology consulted. Pending surface echocardiogram, plan for HARIKA with Dr. Valdez on Wednesday03/20/24. NPO that morning. -strict intake output, daily weights, heart healthy diet -continue GUARD CAPTAIN Toprol 100 mg p.o. q.day, spironolactone 25 mg p.o. q.day, Entresto p.o. b.i.d.. -start Jardiance 10 mg p.o. q.day on admission -03/18: Good response to IV diuresis after 1st day with a negative balance 1.3 L. patient's symptomatology and lower extremity swelling is improved. Can continue Lasix 40 mg IV b.i.d. unless Cardiology would like otherwise. # aortic valve stenosis -status: Chronic -HARIKA on Wednesday # CAD -status: Chronic -cardiac catheterization in November 2022 demonstrated: 1. Right coronary dominant c
[2024-03-18] MEDS: FERROUS SULFATE 325 MG TABLET DR PO (08:58)
[2024-03-18 11:46] LABS: Glucose Point of Care 109 mg/dl (65-105)
--- NOTE | 2024-03-18 12:32 | PM.PNCARD ---
Progress Note: A&P Assessment and Plan (1) Acute on chronic heart failure with preserved ejection fraction (HFpEF, >= 50%): Code(s): I50.33 - Acute on chronic diastolic (congestive) heart failure Status: Acute Plan Acute on chronic systolic heart failure still decompensated, non ischemic cardiomyopathy Moderate to severe aortic stenosis. AF rate controlled Plan Cont OAC Cont Toprol XL Cont Entresto Cont Jardiance Cont Lasix IV today Subjective Date/time seen: 03/18/24 12:32 Interval history: no acute events Review of Systems Review of Systems: All systems reviewed & are unremarkable except as noted in HPI and below Exam Const: General: comfortable and no acute distress Other: Able to lie flat Resp: Auscultation: clear to auscultation bilaterally and lung sounds not diminished Other: No chest wall tenderness Cardio: Rate: regular rate Rhythm: regular rhythm Heart sounds: no gallops, Murmur heart sound present (ESM) and no rubs Extrem: General: no edema Other: Normal capillary refills Intact distal pulses. Objective Data Vital Signs Vital Signs: Vital Signs - 24 hr 03/17/24 16:12 03/17/24 16:00 03/17/24 16:00 Temperature 37.1 C Pulse Rate 82 94 Respiratory Rate 20 Blood Pressure 147/84 H Pulse Oximetry 97 97 Oxygen Delivery Room Air 03/17/24 18:45 03/17/24 20:07 03/17/24 20:00 Temperature 37.1 C Pulse Rate 86 87 87 Respiratory Rate 20 20 Blood Pressure 131/91 H Pulse Oximetry 97 97 Oxygen Delivery Room Air 03/17/24 20:00 03/17/24 22:00 03/17/24 23:27 Temperature 37.1 C Pulse Rate 91 80 68 Respiratory Rate 20 Blood Pressure 126/84 Pulse Oximetry 98 Oxygen Delivery 03/18/24 00:00 03/18/24 00:00 03/18/24 02:00 Temperature Pulse Rate 68 73 82 Respiratory Rate 20 Blood Pressure Pulse Oximetry 98 Oxygen Delivery Room Air 03/18/24 03:55 03/18/24 04:00 03/18/24 04:00 Temperature 37.1 C Pulse Rate 91 84 91 Respiratory Rate 18 18 Blood Pressure 128/71 Pulse Oximetry 98 98 Oxygen Delivery Room Air 03/18/24 05:37 03/18/24 08:00 03/18/24 08:24 Temperature 36.6 C Pulse Rate 88 93 95 Respiratory Rate 28 H Blood Pressure 144/93 H Pulse Oximetry 98 Oxygen Delivery 03/18/24 08:00 03/18/24 08:00 03/18/24 10:00 Temperature Pulse Rate 94 85 Respiratory Rate Blood Pressure Pulse Oximetry Oxygen Delivery Room Air 03/18/24 12:00 Temperature 36.7 C Pulse Rate 92 Respiratory Rate 16 Blood Pressure 115/68 Pulse Oximetry 95 Oxygen Delivery Intake/Output Intake/Output: Intake & Output 03/15/24 03/16/24 03/17/24 03/18/24 23:59 23:59 23:59 23:59 Intake Total 240 740 Output Total 1130 1880 Balance -890 -1140 Meds/Results Medications: Active Medications Generic Name Dose Route Start Last Admin Trade Name Freq PRN Reason Stop Dose Admin Acetaminophen 650 mg 03/17/24 14:29 Acetaminophen 325 Mg Tablet PO Q6H PRN Mild Pain (1-3) or Fever Apixaban 5 mg 03/17/24 21:00 03/18/24 08:25 Apixaban 5 Mg Tablet PO 5 mg Q12HR EMILY Administration Aspirin 81 mg 03/18/24 09:00 03/18/24 08:25 Aspirin 81 Mg Enteric Tablet PO 81 mg DAILY EMILY Administration Atorvastatin Calcium 80 mg 03/17/24 15:35 03/18/24 08:25 Atorvastatin 40 Mg Tablet PO 80 mg DAILY EMILY Administration Dextrose 12.5 gm 03/17/24 15:40 Dextrose 50% 25 Gm/50 Ml Syringe IV PUSH PRN PRN Hypoglycemia Protocol Empagliflozin 10 mg 03/18/24 09:00 03/18/24 08:25 Empagliflozin 10 Mg Tablet PO 10 mg DAILY EMILY Administration Ferrous Sulfate 325 mg 03/18/24 09:00 03/18/24 08:58 Ferrous Sulfate [address] PO 325 mg DAILY EMILY Administration Furosemide 40 mg 03/17/24 15:35 03/18/24 08:25 Furosemide Inj 40 Mg/4 Ml Vial IV PUSH 40 mg BID EMILY Administration Glucagon
[2024-03-18 16:07] LABS: Glucose Point of Care 112 mg/dl (65-105)
[2024-03-18 19:46] LABS: Glucose Point of Care 153 mg/dl (65-105)
[2024-03-19] VITALS (20 sets, daily range): BP systolic 96–133; BP diastolic 55–87; PULSE 51–94; RESP 16–20; TEMP 36.4–36.8; O2SAT 95–98
[2024-03-19 05:01] LABS: Anion Gap 12 mmol/L (4-12); Blood Urea Nitrogen 25 mg/dL (9-20); Calcium 8.8 mg/dL (8.4-10.2); Carbon Dioxide 27 mmol/L (22-30); Chloride 101 mmol/L (98-107); Estimated CRCL calculation 54 ml/min; Estimated Glomerular Filt Rate > 60; Glucose 112 mg/dL (65-110); Magnesium 2.1 mg/dL (1.6-2.3); Potassium 3.6 mmol/L (3.4-5.0); Sodium 140 mmol/L (137-145)
[2024-03-19 06:54] LABS: Glucose Point of Care 122 mg/dl (65-105)
[2024-03-19] MEDS: SPIRONOLACTONE 25 MG TABLET PO (08:16)
[2024-03-19] MEDS: SACUBITRIL/VALSARTAN 49-51 MG TABLET 1 TABLET PO ×2 (08:16→21:18)
[2024-03-19] MEDS: EMPAGLIFLOZIN 10 MG TABLET PO (08:17)
[2024-03-19] MEDS: METOPROLOL SUCCINATE EXT REL 100 MG TABCR PO (08:17)
[2024-03-19] MEDS: PANTOPRAZOLE 40 MG TABLET PO (08:17)
[2024-03-19] MEDS: FERROUS SULFATE 325 MG TABLET DR PO (08:17)
[2024-03-19] MEDS: APIXABAN 5 MG TABLET PO ×2 (08:18→21:18)
[2024-03-19] MEDS: ATORVASTATIN 40 MG TABLET 80 MG PO (08:18)
[2024-03-19] MEDS: ASPIRIN 81 MG ENTERIC TABLET PO (08:18)
--- NOTE | 2024-03-19 08:40 | PCOTNOTE ---
Attempted to see pt. for occupational therapy evalution. Per nursing at PT evaluation, pt. is independent in room and all functional activities. Re-order if services needed.
--- NOTE | 2024-03-19 09:45 | PM.IMPN ---
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: Code(s): Z79.01 - bed bug exterminator (current) use of anticoagulants Status: Chronic (4) Essential hypertension: Code(s): I10 - Essential (primary) hypertension Status: Acute (5) Aortic stenosis: Code(s): I35.0 - Nonrheumatic aortic (valve) stenosis Status: Acute (6) Status post total right knee replacement: Onset Date: ~08/10/23 Code(s): Z96.651 - Presence of right artificial knee joint Status: Acute (7) Acute kidney injury: Code(s): N17.9 - Acute kidney failure, unspecified Status: Acute (8) Coronary artery disease: Code(s): I25.10 - Atherosclerotic heart disease of [place] coronary artery without angina pectoris Status: Acute (9) Normocytic anemia: Code(s): D64.9 - Anemia, unspecified Status: Acute (10) Unspecified atrial fibrillation: Code(s): I48.91 - Unspecified atrial fibrillation Status: Acute Plan Mr. Angeles a very pleasant 78-year-old male with a history of heart failure with improved LVEF (LVEF 35% in November 2022; improved to 50-55% per TTE August 2023), aortic stenosis (probable moderate based on lastest TTE 08/2023), coronary artery disease per cardiac catheterization November 2022, atrial fibrillation on eliquis, GI bleeding from a duodenal ulcer s/p cauterization x3 in 2022 while on prednisone and xarelto s/p right TKA on 08/10/23 (w/ concurrent FROILAN, resolved), osteoarthritis, diverticulosis, hypertension, obesity, GERD, chronic microcytic anemia, NIDDM, cataracts. Gene follows with Dr. Valdez of [facility] group. He is scheduled to undergo HARIKA as an outpatient on 03/[address] Valdez for further evaluation of aortic stenosis. He has been having dyspnea on exertion, orthopnea, lower extremity edema for the past 2 weeks which has progressively worsened. He has not slept well due to this. Reports a baseline weight around 200 lb. He is now 211 lb. Reports increased lower extremity edema as well. They do not use much salt at home. He has not had a cough, in fact he feels he wants a cough but has a tough time doing so. Dr. Valdez recently increased his lasix to 40mg po qday but to no avail. The patient is directly admitted to [facility] IMU on 03/17/24 for acute decompensated heart failure. History is taken from the patient, his Marta Angeles and his daughter Dominique Herring. # acute decompensated heart failure with preserved ejection fraction -status: Acute on chronic, resolved. -baseline weight 200 lb, he is 211 lb on admission. He is a direct admission after having progressive shortness of breath and Lasix increased by his primary industrial relations counselor and not having relief. Has lower extremity edema and scant crackles on lung auscultation. BNP 6360. -LVEF 35% in 11/2022, improved to 50-55% per TTE in 08/2023. -quad viral screen negative on admission -cardiology consulted. Pending surface echocardiogram, plan for HARIKA with Dr. Valdez on Wednesday03/20/24. NPO that morning. -strict intake output, daily weights, heart healthy diet -continue BIRD RAISER Toprol 100 mg p.o. q.day, spironolactone 25 mg p.o. q.day, Entresto p.o. b.i.d.. -start Jardiance 10 mg p.o. q.day on admission -03/18: Good response to IV diuresis after 1st day with a negative balance 1.3 L. patient's symptomatology and lower extremity swelling is improved. Can continue Lasix 40 mg IV b.i.d. unless Cardiology would like otherwise. -03/19: He is now -3.5 L. reports great symptomatic improvement. Lungs clear. Lower extremity edema only 1+ now. Switch IV Lasix to 40 mg p.o. q.day. HARIKA brenna
[2024-03-19] MEDS: FUROSEMIDE 40 MG TABLET PO (10:38)
[2024-03-19 11:51] LABS: Glucose Point of Care 95 mg/dl (65-105)
--- NOTE | 2024-03-19 13:59 | PM.PNCARD ---
Progress Note: A&P Assessment and Plan (1) Acute on chronic heart failure with preserved ejection fraction (HFpEF, >= 50%): Code(s): I50.33 - Acute on chronic diastolic (congestive) heart failure Status: Acute Plan Acute on chronic systolic heart failure still decompensated, non ischemic cardiomyopathy Moderate to severe aortic stenosis. AF rate controlled Plan Change ot oral diuretic HARIKA tomorrow Cont OAC Cont Toprol XL Cont Entresto Cont Jardiance Subjective Date/time seen: 03/19/24 13:59 Interval history: no acute events Review of Systems Review of Systems: All systems reviewed & are unremarkable except as noted in HPI and below Exam Const: General: comfortable and no acute distress Other: Able to lie flat Resp: Auscultation: clear to auscultation bilaterally and lung sounds not diminished Other: No chest wall tenderness Cardio: Rate: regular rate Rhythm: regular rhythm Heart sounds: no gallops, Murmur heart sound present (ESM) and no rubs Extrem: General: no edema Other: Normal capillary refills Intact distal pulses. Objective Data Vital Signs Vital Signs: Vital Signs - 24 hr 03/18/24 14:00 03/18/24 16:36 03/18/24 16:00 Temperature 36.7 C Pulse Rate 79 82 Respiratory Rate 20 Blood Pressure 106/71 106/71 Pulse Oximetry 95 Oxygen Delivery 03/18/24 16:00 03/18/24 16:00 03/18/24 18:00 Temperature Pulse Rate 75 83 Respiratory Rate Blood Pressure Pulse Oximetry Oxygen Delivery Room Air 03/18/24 19:57 03/18/24 20:00 03/18/24 22:00 Temperature 36.6 C Pulse Rate 77 84 81 Respiratory Rate 18 Blood Pressure 125/73 Pulse Oximetry 97 Oxygen Delivery 03/19/24 00:00 03/19/24 01:09 03/19/24 01:45 Temperature 36.6 C Pulse Rate 91 87 84 Respiratory Rate 18 Blood Pressure 114/62 Pulse Oximetry 97 Oxygen Delivery 03/19/24 03:48 03/19/24 03:50 03/19/24 04:00 Temperature 36.6 C Pulse Rate 88 88 94 Respiratory Rate 18 18 Blood Pressure 120/57 L Pulse Oximetry 98 98 Oxygen Delivery Room Air 03/19/24 05:48 03/19/24 08:00 03/19/24 08:17 Temperature 36.4 C L Pulse Rate 81 51 L 93 Respiratory Rate 20 Blood Pressure 126/87 Pulse Oximetry 98 Oxygen Delivery 03/19/24 08:00 03/19/24 08:00 03/19/24 10:00 Temperature Pulse Rate 87 79 Respiratory Rate Blood Pressure Pulse Oximetry Oxygen Delivery Room Air 03/19/24 11:58 03/19/24 12:00 03/19/24 12:00 Temperature 36.5 C Pulse Rate 87 86 Respiratory Rate 20 Blood Pressure 133/72 Pulse Oximetry 97 Oxygen Delivery Room Air Intake/Output Intake/Output: Intake & Output 03/16/24 03/17/24 03/18/24 03/19/24 23:59 23:59 23:59 23:59 Intake Total 240 1570 480 Output Total 1130 3730 780 [facility] [place] -[phone] Meds/Results Medications: Active Medications Generic Name Dose Route Start Last Admin Trade Name Freq PRN Reason Stop Dose Admin Acetaminophen 650 mg 03/17/24 14:29 Acetaminophen 325 Mg Tablet PO Q6H PRN Mild Pain (1-3) or Fever Apixaban 5 mg 03/17/24 21:00 03/19/24 08:18 Apixaban 5 Mg Tablet PO 5 mg Q12HR EMILY Administration Aspirin 81 mg 03/18/24 09:00 03/19/24 08:18 Aspirin 81 Mg Enteric Tablet PO 81 mg DAILY EMILY Administration Atorvastatin Calcium 80 mg 03/17/24 15:35 03/19/24 08:18 Atorvastatin 40 Mg Tablet PO 80 mg DAILY EMILY Administration Dextrose 12.5 gm 03/17/24 15:40 Dextrose 50% 25 Gm/50 Ml Syringe IV PUSH PRN PRN Hypoglycemia Protocol Empagliflozin 10 mg 03/18/24 09:00 03/19/24 08:17 Empagliflozin 10 Mg Tablet PO 10 mg DAILY EMILY Administration Ferrous Sulfate 325 mg 03/18/24 09:00 03/19/24 08:17 Ferrous Sulfate [address] PO 325 mg DAILY EMILY Administration Furosemide 40 mg 03/19/24 09:00 03/19/24 10:38 Furosemide 40 Mg Tabl
[2024-03-19 16:25] LABS: Glucose Point of Care 112 mg/dl (65-105)
[2024-03-19 20:22] LABS: Glucose Point of Care 126 mg/dl (65-105)
[2024-03-20] VITALS (21 sets, daily range): BP systolic 98–132; BP diastolic 44–83; PULSE 73–103; RESP 16–22; TEMP 36.3–36.9; O2SAT 91–100; BMI 32.1
[2024-03-20 04:35] LABS: Hematocrit 39.9 % (42.0-52.0); Hemoglobin 11.8 g/dL (14.0-18.0); Mean Corpuscular HGB Conc 29.6 g/dl (32-36); Mean Corpuscular Hemoglobin 25.1 pg (26-34); Mean Corpuscular Volume 84.9 fl (80-100); Mean Platelet Volume 11.2 fl (7.4-10.4); Platelet Count Result 201 k/mm3 (150-375); Red Cell Distribution Width 17.5 % (11.5-14.5); White Blood Count 6.1 K/mm3 (4.5-10.0)
[2024-03-20 04:45] LABS: Anion Gap 6 mmol/L (4-12); Blood Urea Nitrogen 27 mg/dL (9-20); Carbon Dioxide 33 mmol/L (22-30); Chloride 100 mmol/L (98-107); Estimated CRCL calculation 46 ml/min; Estimated Glomerular Filt Rate 53; Glucose 115 mg/dL (65-110); Magnesium 2.2 mg/dL (1.6-2.3); Potassium 3.5 mmol/L (3.4-5.0); Sodium 139 mmol/L (137-145)
[2024-03-20 06:49] LABS: Glucose Point of Care 109 mg/dl (65-105)
[2024-03-20] MEDS: METOPROLOL SUCCINATE EXT REL 100 MG TABCR PO (09:26)
[2024-03-20] MEDS: FERROUS SULFATE 325 MG TABLET DR PO (09:27)
[2024-03-20] MEDS: APIXABAN 5 MG TABLET PO ×2 (09:27→20:57)
[2024-03-20] MEDS: PANTOPRAZOLE 40 MG TABLET PO (09:28)
[2024-03-20] MEDS: ATORVASTATIN 40 MG TABLET 80 MG PO (09:29)
[2024-03-20] MEDS: ASPIRIN 81 MG ENTERIC TABLET PO (09:29)
[2024-03-20 12:09] LABS: Glucose Point of Care 102 mg/dl (65-105)
--- NOTE | 2024-03-20 12:25 | PC.NURSE ---
Pt to [facility] via stretcher accompanied by RN for HARIKA
--- NOTE | 2024-03-20 12:32 | WPDANESEPPF ---
Anes - Initial Pre Proc Eval Procedure: Operation Date: 03/20/24 13:00 Proposed Procedures p Trans Esophageal Echo - Asim Valdez MD Date/Time: 03/20/24 12:32 Surgeon: Alba Wilson MD Pre Op Diagnosis: heart failure Patient Data Age: 78 Gender: M Height: 1.73 m Weight: 95.7 kg Last Vital Signs Temp 36.8 C 03/20/24 12:00 Pulse 80 03/20/24 12:00 Resp 18 03/20/24 12:00 BP 125/67 03/20/24 12:04 Pulse Ox 97 03/20/24 12:00 O2 Del Method Room Air 03/20/24 04:00 Allergies Allergy/AdvReac Type Severity Reaction Status Date / Time No Known Allergies Allergy Verified 12/01/23 15:36 Home Medications Medication Instructions Recorded Confirmed Type metoprolol succinate 100 mg 100 mg PO DAILY #90 tabs 11/30/22 03/17/24 Rx tablet,extended release 24 hr (Toprol XL) spironolactone 25 mg tablet 25 mg PO DAILY #90 tabs 11/30/22 03/17/24 Rx aspirin 81 mg tablet,delayed 81 mg PO DAILY 02/10/23 03/17/24 History release (Adult Aspirin Regimen) acetaminophen 500 mg tablet 500 mg PO Q6H PRN Pain 09/29/23 03/17/24 History (Tylenol Extra Strength) apixaban 5 mg tablet (Eliquis) 5 mg PO BID 12/01/23 03/17/24 History furosemide 20 mg tablet 40 mg PO DAILY 03/17/24 03/17/24 History metformin 500 mg tablet,extended 500 mg PO QPM 03/17/24 03/17/24 History release 24 hr pantoprazole 40 mg tablet,delayed 40 mg PO DAILY 03/17/24 03/17/24 History release sacubitril 49 mg-valsartan 51 mg 1 tablet PO BID 03/17/24 03/17/24 History tablet (Entresto) Laboratory Tests 03/19/24 03/19/24 03/20/24 15:56 20:09 04:13 WBC 6.1 K/mm3 (4.5-10.0) RBC 4.70 M/mm3 (4.6-6.20) Hgb 11.8 L g/dL (14.0-18.0) Hct 39.9 L % (42.0-52.0) MCV 84.9 fl (80-100) MCH 25.1 L pg (26-34) MCHC 29.6 L g/dl (32-36) RDW 17.5 H % (11.5-14.5) Plt Count 201 k/mm3 (150-375) MPV 11.2 H fl (7.4-10.4) Sodium 139 mmol/L (137-145) Potassium 3.5 mmol/L (3.4-5.0) Chloride 100 mmol/L (98-107) Carbon Dioxide 33 H mmol/L (22-30) Anion Gap 6 mmol/L (4-12) BUN 27 H mg/dL (9-20) Creatinine 1.30 mg/dL (0.7-1.3) Estim Creat Clear Calc 46 ml/min Estimated GFR 53 L (59 - ) Glucose 115 H mg/dL (65-110) POC Capillary Glucose 112 H mg/dl 126 H mg/dl (65-105) (65-105) Calcium 9.0 mg/dL (8.4-10.2) Magnesium 2.2 mg/dL (1.6-2.3) 03/20/24 03/20/24 06:45 11:50 WBC RBC Hgb Hct MCV MCH MCHC RDW Plt Count MPV Sodium Potassium Chloride Carbon Dioxide Anion Gap BUN Creatinine Estim Creat Clear Calc Estimated GFR Glucose POC Capillary Glucose 109 H mg/dl 102 mg/dl (65-105) (65-105) Calcium Magnesium Patient hx anesthesia problems: none Family hx anesthesia problems: none Results Review: All pre-operative results and documents have been reviewed as part of the pre-operative evaluation. [facility] Past Medical History Medical History (Updated 03/18/24 @ 08:53 by Alba Wilson MD) Aortic stenosis Atrial fibrillation Bilateral primary osteoarthritis of knee Coronary artery disease Cardiac catheterization November 2022: Moderately enlarged LV with moderate global systolic dysfunction with no regional wall motion abnormalities with an ejection fraction visually estimated 35%. Nonobstructive disease noted in larger vessels as below. Diabetes Diverticulosis Essential (primary) hypertension Family history of unspecified malignant neoplasm Heart failure with reduced ejection fraction EF 35% on cath in November 2022. Lumbar spondylosis Male erectil
--- NOTE | 2024-03-20 13:06 | P.PCNCC_ITS ---
Cardiac Cath Procedure Note Date of procedure:: 03/20/24 Performing physician:: Asim Valdez MD Indication:: Coronary artery disease Chronic atrial fibrillation Left ventricular systolic dysfunction Aortic stenosis Brief clinical history:: This is a 78-year-old man with worsening congestive heart failure despite effective medical therapy. He was found to have aortic valve stenosis which by catheterization last year was felt to be mild. Despite this he is having worsening congestive heart failure and richard has been recommended to investigate severity of aortic valve disease Procedure Procedure performed:: Transesophageal echocardiogram Sedation/Medication given:: Anesthesia provided sedation see their separately dictated note Estimated blood loss:: No blood loss Procedure note:: Patient was brought to the cardiac catheterization lab/postanesthesia care unit where he was in the postabsorptive state in the supine position. Or pharyngeal benzocaine was used for topical anesthesia. A bite block was then placed and anesthesia provided intravenous sedation. Richard probe was advanced into the hypopharynx and then into the esophagus easily where multiplane are and Doppler esophageal ECHO evaluation was performed. Following this the RICHARD probe was were withdrawn and the patient is being recovered under the direct observation of anesthesia. Procedure was well tolerated and uncomplicated Findings:: The left atrium is moderately dilated there was no evidence of atrial clot. Mitral valve leaflets are unremarkable in appearance there was no mitral valve prolapse there is trivial mitral regurgitation by Doppler. The left ventricle is enlarged and there is moderate to severe systolic hypokinesia noted ejection fraction is visually estimated to be about 30%. The aortic valve is a trileaflet structure which exhibits a significant fibrocalcific thickening with reduced leaflet excursion. Aortic stenosis visually looks to be severe. Direct planimetry of the valve several times he will that valve area between 0.7 and 1.0 cm squared. Aortic root dimension is normal. The right-sided chambers are unremarkable in size and appearance the tricuspid valve looks normal the interatrial septum is unremarkable in appearance there is no pericardial fluid. Conclusion:: 1. Trileaflet aortic valve with severe calcific aortic valve stenosis as described above 2. Left ventricular enlargement severe generalized systolic dysfunction ejection fraction visually estimates to be 30-35% 3. Trivial MR 4. Left atrial enlargement Asim Valdez MD [facility]
--- NOTE | 2024-03-20 14:14 | PM.IMPN ---
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 Status: Chronic (4) Essential hypertension: Code(s): I10 - Essential (primary) hypertension Status: Acute (5) Aortic stenosis: Code(s): I35.0 - Nonrheumatic aortic (valve) stenosis Status: Acute (6) Status post total right knee replacement: Onset Date: ~08/10/23 Code(s): Z96.651 - Presence of right artificial knee joint Status: Acute (7) Acute kidney injury: Code(s): N17.9 - Acute kidney failure, unspecified Status: Acute (8) Coronary artery disease: Code(s): I25.10 - Atherosclerotic heart disease of [place] coronary artery without angina pectoris Status: Acute (9) Normocytic anemia: Code(s): D64.9 - Anemia, unspecified Status: Acute (10) Unspecified atrial fibrillation: Code(s): I48.91 - Unspecified atrial fibrillation Status: Acute Plan Mr. Angeles a very pleasant 78-year-old male with a history of heart failure with improved LVEF (LVEF 35% in November 2022; improved to 50-55% per TTE August 2023), aortic stenosis (probable moderate based on lastest TTE 08/2023), coronary artery disease per cardiac catheterization November 2022, atrial fibrillation on eliquis, GI bleeding from a duodenal ulcer s/p cauterization x3 in 2022 while on prednisone and xarelto s/p right TKA on 08/10/23 (w/ concurrent FROILAN, resolved), osteoarthritis, diverticulosis, hypertension, obesity, GERD, chronic microcytic anemia, NIDDM, cataracts. Gene follows with Dr. Valdez of [facility] group. He is scheduled to undergo HARIKA as an outpatient on 03/[address] Valdez for further evaluation of aortic stenosis. He has been having dyspnea on exertion, orthopnea, lower extremity edema for the past 2 weeks which has progressively worsened. He has not slept well due to this. Reports a baseline weight around 200 lb. He is now 211 lb. Reports increased lower extremity edema as well. They do not use much salt at home. He has not had a cough, in fact he feels he wants a cough but has a tough time doing so. Dr. Valdez recently increased his lasix to 40mg po qday but to no avail. The patient is directly admitted to [facility] IMU on 03/17/24 for acute decompensated heart failure. History is taken from the patient, his Marta Angeles and his daughter Dominique Herring. # acute decompensated heart failure with preserved ejection fraction -status: Acute on chronic, resolved. -baseline weight 200 lb, he is 211 lb on admission. He is a direct admission after having progressive shortness of breath and Lasix increased by his primary sheet rock taper and not having relief. Has lower extremity edema and scant crackles on lung auscultation. BNP 6360. -LVEF 35% in 11/2022, improved to 50-55% per TTE in 08/2023. -quad viral screen negative on admission -cardiology consulted. Pending surface echocardiogram, plan for HARIKA with Dr. Valdez on Wednesday03/20/24. NPO that morning. -strict intake output, daily weights, heart healthy diet -continue LABORATORY DIRECTOR Toprol 100 mg p.o. q.day, spironolactone 25 mg p.o. q.day, Entresto p.o. b.i.d.. -start Jardiance 10 mg p.o. q.day on admission -03/18: Good response to IV diuresis after 1st day with a negative balance 1.3 L. patient's symptomatology and lower extremity swelling is improved. Can continue Lasix 40 mg IV b.i.d. unless Cardiology would like otherwise. -03/19: He is now -3.5 L. reports great symptomatic improvement. Lungs clear. Lower extremity edema only 1+ now. Switch IV Lasix to 40 mg p.o. q.day. HARIKA brenna
[2024-03-20] MEDS: EMPAGLIFLOZIN 10 MG TABLET PO (14:27)
[2024-03-20] MEDS: SPIRONOLACTONE 25 MG TABLET PO (14:27)
[2024-03-20] MEDS: SACUBITRIL/VALSARTAN 49-51 MG TABLET 1 TABLET PO ×2 (14:27→23:45)
--- NOTE | 2024-03-20 14:51 | PC.NURSE ---
@ 1355- returned to room post procedure -sitting up in recliner- VSS- c/o scratchy throat- but otherwise no complaints; monitor atrial fib 80's
[2024-03-20 17:01] LABS: Glucose Point of Care 169 mg/dl (65-105)
[2024-03-20 21:07] LABS: Glucose Point of Care 118 mg/dl (65-105)
[2024-03-20] MEDS: ACETAMINOPHEN 325 MG TABLET 650 MG PO (21:58)
[2024-03-21] VITALS (8 sets, daily range): BP systolic 93–128; BP diastolic 59–69; PULSE 74–90; RESP 18–24; TEMP 36.4–37; O2SAT 97–100
[2024-03-21 06:47] LABS: Glucose Point of Care 109 mg/dl (65-105)
[2024-03-21] MEDS: PANTOPRAZOLE 40 MG TABLET PO (08:19)
[2024-03-21] MEDS: EMPAGLIFLOZIN 10 MG TABLET PO (08:19)
[2024-03-21] MEDS: METOPROLOL SUCCINATE EXT REL 100 MG TABCR PO (08:19)
[2024-03-21] MEDS: FERROUS SULFATE 325 MG TABLET DR PO (08:19)
[2024-03-21] MEDS: ATORVASTATIN 40 MG TABLET 80 MG PO (08:19)
[2024-03-21] MEDS: SACUBITRIL/VALSARTAN 49-51 MG TABLET 1 TABLET PO (08:19)
[2024-03-21] MEDS: FUROSEMIDE 40 MG TABLET PO (08:19)
[2024-03-21] MEDS: APIXABAN 5 MG TABLET PO (08:19)
[2024-03-21] MEDS: SPIRONOLACTONE 25 MG TABLET PO (08:19)
[2024-03-21] MEDS: ASPIRIN 81 MG ENTERIC TABLET PO (08:19)
[2024-03-21 12:07] LABS: Glucose Point of Care 95 mg/dl (65-105)
--- NOTE | 2024-03-21 12:33 | PM.PNCARD ---
Progress Note: A&P Assessment and Plan (1) Acute on chronic heart failure with reduced ejection fraction (HFrEF, <= 40%): Code(s): I50.23 - Acute on chronic systolic (congestive) heart failure Status: Acute Assessment and Plan: TTE 03/17 with LVEF 40-45%; about 30-35% on HARIKA. Now euvolemic. Continue Lasix 40mg once daily. Continue Spironolactone, Toprol. Entresto, Jardiance (2) Aortic stenosis: Code(s): I35.0 - Nonrheumatic aortic (valve) stenosis Status: Acute Assessment and Plan: HARIKA shows severe . Has been referred to [facility] for TAVR evaluation. (3) Coronary artery disease: Code(s): I25.10 - Atherosclerotic heart disease of [place] coronary artery without angina pectoris Status: Acute Assessment and Plan: Cardiac catheterization in November 2022 showed: 1. Right coronary dominant circulation with coronary artery disease including non flow-limiting lesions in the proximal and mid LAD. 2. Significant flow-limiting lesions are seen in a small 2nd diagonal branch of the LAD as well as the medium-sized PL branches as described above. PCI of these lesions is not indicated as the patient has no angina and these are small distal vessels. Continue ASA 81mg once daily. Continue high intensity statin. (4) Atrial fibrillation: Code(s): I48.91 - Unspecified atrial fibrillation Status: Acute Assessment and Plan: Rate controlled. Continue Toprol, Eliquis. (5) Essential hypertension: Code(s): I10 - Essential (primary) hypertension Status: Acute Assessment and Plan: Stable. 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 (7) Acute kidney injury: Code(s): N17.9 - Acute kidney failure, unspecified Status: Acute Assessment and Plan: Cardiorenal from volume overload state. Resolved with diuresis. Plan Okay to discharge home today. Outpatient follow up with Dr. Valdez. Recommendations and plan discussed with Hospitalist. Subjective Date/time seen: 03/21/24 12:33 Interval history: Reason for visit: Acute on chronic CHF Feeling well today. Review of Systems Review of Systems: All systems reviewed & are unremarkable except as noted in HPI and below (HPI) Exam Const: General: comfortable and no acute distress HENMT: Mouth: Yes moist mucous membranes Eyes: General: appearance normal, both eyes and all related structures Sclera: sclerae normal Resp: Effort & Inspection: normal respiratory effort Cardio: Rhythm: abnormal rhythm irregularly irregular Skin: General skin exam: normal color Neuro: Speech: normal speech Psych: Mental Status: mental status grossly normal Affect: normal affect Objective Data Vital Signs Vital Signs: Vital Signs - 24 hr 03/20/24 13:15 03/20/24 13:30 03/20/24 13:45 Temperature Pulse Rate 85 90 85 Respiratory Rate 17 22 H 21 H Blood Pressure 127/83 130/81 132/75 Pulse Oximetry 91 100 98 Oxygen Delivery Room Air Nasal Cannula Room Air Oxygen Flow Rate 3 03/20/24 14:00 03/20/24 14:00 03/20/24 16:00 Temperature 36.3 C L Pulse Rate 84 84 78 Respiratory Rate 20 18 Blood Pressure 126/73 105/60 Pulse Oximetry 98 96 Oxygen Delivery Oxygen Flow Rate 03/20/24 16:30 03/20/24 18:00 03/20/24 20:00 Temperature Pulse Rate 83 81 Respiratory Rate Blood Pressure Pulse Oximetry Oxygen Delivery Room Air Oxygen Flow Rate 03/20/24 20:10 03/20/24 20:00 03/20/24 23:14 Temperature 36.9 C Pulse Rate 81 85 Respiratory Rate 16 Blood Pressure 115/70 Pulse Oximetry 97 Oxygen Delivery Room Air Oxygen Flow Rate 03/20/24 23:55 03/21/24 00:00 03/21/24 03:41 Temperature 36.6 C Pulse Rate 75 79 Respiratory Rate 16 Bloo
--- NOTE | 2024-03-22 08:22 | PM.DS ---
DS: Admitting Diagnosis Discharge Date 03/21/24 Admitting Diagnosis Shortness of breath DS: Discharge Diagnosis Discharge Diagnosis (1) Acute on chronic heart failure with reduced ejection fraction (HFrEF, <= 40%): Code(s): I50.23 - Acute on chronic systolic (congestive) heart failure Status: Acute (2) Diabetes: Code(s): E11.9 - Type 2 diabetes mellitus without complications Status: Acute (3) Unspecified atrial fibrillation: Code(s): I48.91 - Unspecified atrial fibrillation Status: Acute (4) retirement (current) use of anticoagulants: Code(s): Z79.01 - retirement (current) use of anticoagulants Status: Chronic (5) Normocytic anemia: Code(s): D64.9 - Anemia, unspecified Status: Acute (6) Essential hypertension: Code(s): I10 - Essential (primary) hypertension Status: Acute (7) Aortic stenosis: Code(s): I35.0 - Nonrheumatic aortic (valve) stenosis Status: Acute DS: Summary Hospital Course Hospital Course: Mr. Angeles a very pleasant 78-year-old male with a history of heart failure with improved LVEF (LVEF 35% in November 2022; improved to 50-55% per TTE August 2023), aortic stenosis (probable moderate based on lastest TTE 08/2023), coronary artery disease per cardiac catheterization November 2022, atrial fibrillation on eliquis, GI bleeding from a duodenal ulcer s/p cauterization x3 in 2022 while on prednisone and xarelto s/p right TKA on 08/10/23 (w/ concurrent FROILAN, resolved), osteoarthritis, diverticulosis, hypertension, obesity, GERD, chronic microcytic anemia, NIDDM, cataracts. Gene follows with Dr. Valdez of [facility] group. He is scheduled to undergo HARIKA as an outpatient on 03/[address] Valdez for further evaluation of aortic stenosis. He has been having dyspnea on exertion, orthopnea, lower extremity edema for the past 2 weeks which has progressively worsened. He has not slept well due to this. Reports a baseline weight around 200 lb. He is now 211 lb. Reports increased lower extremity edema as well. They do not use much salt at home. He has not had a cough, in fact he feels he wants a cough but has a tough time doing so. Dr. Valdez recently increased his lasix to 40mg po qday but to no avail. The patient is directly admitted to [facility] IMU on 03/17/24 for acute decompensated heart failure. History is taken from the patient, his Marta Angeles and his daughter Dominique Herring. The patient is stable for discharge. He reports his shortness of breath has resolved. He is breathing well on room air. HARIKA completed on 03/20 which demonstrated 1. Left ventricular enlargement with global systolic hypokinesia ejection fraction 30-35%. 2. Biatrial dilation left greater than right. 3. Trivial MR. 4. Severe aortic valve stenosis with valve area by planimetry 0.7-1.0 depending on the projection. 5. No aortic regurgitation. 6. Atrial fibrillation. He has been provided referral to [facility] for TAVR evaluation. He will also follow-up with his usual hospital clerk Dr. Valdez. He has been educated about the disease process of diabetes, glucose monitoring, lifestyle changes, and close follow-up with his PCP. These discussions were held with his daughter Dominique Herring. Adverse effects, risk and benefits of medications discussed. Jardiance 10 mg p.o. q.day was also started in conjunction with Cardiology for his heart failure. He was also started on iron tablet daily. Normocytic anemia. Please see below for further details on individual problems: # acute decompensated heart failure with preserved ejection fraction -status: Acute on chronic, resolved. -baseline weight 200 lb, he is 211 lb on admission. He is a direct admission after having progressive shortness of breath and Lasix increased by his primary hospital clerk and not having relief. Has lower extremity edema and scant crackles on lung auscultation. B
== END 2024-03-21 14:30 | disposition home or self-care (01) | DRG 291 ==
PROVIDERS: Internal Medicine; Admitting Provider General Practice; PCP Family Medicine; Referring Provider Specialist; Visit Provider General Practice
PROC: B24BZZ4 Ultrasonography of Heart with Aorta, Transesophageal (ICD-10-PCS; CPT 93312; principal; 2024-03-20 13:00)
DX: I11.0 Hypertensive heart disease with heart failure (principal); I50.23 Acute on chronic systolic (congestive) heart failure; N17.9 Acute kidney failure, unspecified; I48.20 Chronic atrial fibrillation, unspecified; I42.8 Other cardiomyopathies; E11.9 Type 2 diabetes mellitus without complications; I35.0 Nonrheumatic aortic (valve) stenosis; I25.10 Atherosclerotic heart disease of native coronary artery without angina pectoris; K21.9 Gastro-esophageal reflux disease without esophagitis; K57.90 Diverticulosis of intestine, part unspecified, without perforation or abscess without bleeding; D50.9 Iron deficiency anemia, unspecified; D64.9 Anemia, unspecified; Z96.651 Presence of right artificial knee joint; M19.90 Unspecified osteoarthritis, unspecified site; E66.9 Obesity, unspecified; Z68.30 Body mass index [BMI] 30.0-30.9, adult; Z79.01 Long term (current) use of anticoagulants
CPT/HCPCS: 36415; 71045; 80048; 80061; 81001; 82570; 82728; 82948; 83036; 83540; 83550; 83735; 83880; 84443; 84540; 85025; 85027; 85999; 87637; 93005; 93312; 93320; 93325; 97161; A9270; C8929; J1940; J7030; Q9957